=== PATIENT | female | born 1960 | race Caucasian/White ===

== ENCOUNTER 2020-07-05 16:56 | Outpatient (CLI) | payer OTHER, SELFPAY ==
--- NOTE | ~2020-07-05 | MM_ITS ---
EXAMINATION: MM screening [facility] BI w esteban HISTORY: Screening TECHNIQUE: Craniocaudal and mediolateral oblique 3-D tomosynthesis images were obtained and synthetic 2-D images were generated. CAD analysis was submitted and interpreted. COMPARISON: Comparison to multiple prior studies sequentially, with oldest reviewed study dated 01/31. BREAST PARENCHYMAL COMPOSITION: There are scattered areas of fibroglandular density. FINDINGS: There is no evidence of suspicious mass, calcification, or architectural distortion to sugg est malignancy in either breast. There has been no suspicious interval change. IMPRESSION: 1. No mammographic evidence of malignancy. 2. Recommend routine screening mammography in one year. BI-RADS Category 1: Negative Reviewed, dictated and finalized at location A. O [employer]
== END 2020-07-05 16:57 | disposition home or self-care (01) ==
LOC: ANHIMG 17:00
PROVIDERS: PCP Family Medicine; Visit Provider Physician Assistant
DX: Z12.31 Encounter for screening mammogram for malignant neoplasm of breast (principal)
CPT/HCPCS: 77063; 77067

== ENCOUNTER 2021-11-07 09:44 | Outpatient (CLI) | payer BC, SELFPAY ==
--- NOTE | ~2021-11-07 | MM_ITS ---
EXAMINATION: MM screening [facility] BI w esteban HISTORY: Screening TECHNIQUE: Craniocaudal and mediolateral oblique 3-D tomosynthesis images were obtained and synthetic 2-D images were generated. CAD analysis was submitted and interpreted. COMPARISON: Comparison to multiple prior studies sequentially, with oldest reviewed study dated 03/13. BREAST PARENCHYMAL COMPOSITION: There are scattered areas of fibroglandular density. FINDINGS: There is no evidence of suspicious mass, calcification, or architectural distortion to sugg est malignancy in either breast. There has been no suspicious interval change. IMPRESSION: 1. No mammographic evidence of malignancy. 2. Recommend routine screening mammography in one year. BI-RADS Category 1: Negative Reviewed, dictated and finalized at location A.
== END 2021-11-07 09:45 | disposition home or self-care (01) ==
PROVIDERS: PCP Family Medicine; Visit Provider Physician Assistant
DX: Z12.31 Encounter for screening mammogram for malignant neoplasm of breast (principal)
CPT/HCPCS: 77063; 77067

== ENCOUNTER 2022-02-12 08:23 | Inpatient (IN) | payer BC, SELFPAY ==
--- NOTE | ~2022-02-12 | CT_ITS ---
EXAMINATION: CT abdomen pelvis wo con DATE: 02/12/2022 10:20 INDICATION: Abdominal pain and vomiting TECHNIQUE: Computed tomography (CT) of the abdomen and pelvis was performed without intravenous contr ast. Automated exposure control and iterative reconstruction technique were employed. The dose-length product was 1354.83 mGy-cm. COMPARISON: None FINDINGS: Discoid atelectasis in the couple associated mucus impacted bronchi in the lateral basilar segment of the left lower lobe. Heart size is normal. No pericardial or pleural effusion. Small sliding-type hi atal hernia. Change of likely bariatric surgery with suture line along the proximal stomach extending both above and below the level of the thoracic hiatus. Cholecystectomy clips at the gallbladder santos a. And liver is normal. Splenic calcifications consistent with old granulomatous disease. Small linea r calcification at the body of the otherwise normal-appearing pancreas most likely atherosclerotic al though could not or dystrophic calcification related to chronic pancreatitis. Correlate with clinical history. Bilateral adrenal glands are normal. Mild bilateral renal atrophy with multiple low-attenua tion bilateral renal cysts measuring up to 2.5 similar to lower pole of the left kidney and 2 cm at t he lower pole of the right kidney. One-2 mm stone in upper pole calyx of the left kidney. No ureteral stones or hydronephrosis. Bladder is normal. The uterus is not identified and has likely been surgic ally resected. 3.1 cm left ovarian cyst. Right ovary is unremarkable. Moderate diverticulosis along the sigmoid and descending colon without adjacent inflammatory strandin g to suggest diverticular colitis. The appendix is not visualizedwith surgical clips at the tip of th e cecum consistent with prior appendectomy. Small fat-containing umbilical hernia with a few small haile praumbilical hernias along the midline of the abdomen, one containing fat, one containing a small goyo unt of fluid and fluid containing very small loop of obstructive small bowel with dilation of the mor e proximal small bowel measuring up to 4.4 cm maximal diameter and decompression of the more distal s mall bowel. No abnormal bowel wall thickening or associated mesenteric edema. No free fluid is identi fied for the previous noted small collection in one of the ventral hernias. No abscess or free intraperitoneal gas. No pathologically enlarged abdominal or pelvic lymphadenopath y. There is calcified atherosclerosis of the aorta and its branch arteries. No pathologically enlarge d abdominal or pelvic lymphadenopathy. Mild lumbar levocurvature with severe spondylosis. Grade 1 spo ndylolisthesis at L2-L3 through L4-L5. There are bridging osteophytes at multiple levels in the spine , consistent with diffuse idiopathic skeletal hyperostosis (DISH). IMPRESSION: 1. Small bowel obstruction resulting from herniation of a short segment of small bowel into one of a few small supraumbilical ventral hernias. 2. Small sliding-type hiatal hernia with change of prior likely bariatric surgery at the proximal sto mach. Reviewed, dictated and finalized at location A. IMPRESSION: 1. Small bowel obstruction resulting from herniation of a short segment of smal l bowel into one of a few small supraumbilical ventral hernias. 2. Small sliding-type hiatal hernia with change of prior likely bariatric surge ry at the proximal stomach.
--- NOTE | ~2022-02-12 | US_ITS ---
EXAMINATION: US renal BI DATE: 02/13/2022 09:31 INDICATION: Acute renal failure. TECHNIQUE: Multiple ultrasound grayscale images of the kidneys were obtained. COMPARISON: CT abdomen and pelvis 02/12/2022 FINDINGS: The right kidney measures 13.2 x 5.6 x 6.7 cm. The left kidney measures 12.8 x 5.2 cm. The kidneys de monstrate increased parenchymal echogenicity, consistent with nonspecific nephropathy. There are cyst s in the kidneys measuring up to 2.5 cm on the left. There is no hydronephrosis. The bladder is decom pressed by a Hammer catheter. There is a 3.5 cm cyst in left ovary. IMPRESSION: 1. Normal kidney sizes. No hydronephrosis. 2. 3.5 cm cyst in left ovary, likely benign. Pelvis ultrasound is recommended in one year. Reviewed, dictated and finalized at location A. IMPRESSION: 1. Normal kidney sizes. No hydronephrosis. 2. 3.5 cm cyst in left ovary, likely benign. Pelvis ultrasound is recommended i n one year.
--- NOTE | ~2022-02-12 | XR_ITS ---
XR abdomen NG/feed tube insert DATE: 02/12/2022 11:37 INDICATION: NG tube placement TECHNIQUE: Portable upright AP views on 02/12/2022 at 1132 hours COMPARISON: None FINDINGS: An NG tube is present in the lower body of the stomach. Postoperative changes of left and right abdomen. Some dilated small bowel is noted IMPRESSION: NG tube in satisfactory position in the lower body of the stomach Reviewed, dictated and finalized at Location A. Reviewed, dictated and finalized at location B.
[2022-02-12 08:27] VITALS: BP 124/75; PULSE 90; RESP 18; TEMP 36.1; O2SAT 97
[2022-02-12 08:42] LABS: Basophils Percent Auto 0.2 % (0.2-1.2); Eosinophils Percent Auto 0.2 % (0-4.4); Hematocrit 41.9 % (37.0-47.0); Hemoglobin 13.9 g/dL (12.0-15.0); Immature Granulocyte Absolute 0.03 K/mm3 (0.00-0.031); Immature Granulocyte Percent A 0.4 % (0-0.5); Lymphocytes Absolute Auto 0.93 K/mm3 (0.9-3.2); Lymphocytes Percent Auto 11.2 % (18.3-44.2); Mean Corpuscular HGB Conc 33.2 g/dl (32-36); Mean Corpuscular Hemoglobin 31.2 pg (26-34); Mean Corpuscular Volume 93.9 fl (80-100); Mean Platelet Volume 9.4 fl (7.4-10.4); Monocytes Absolute Auto 0.9 K/mm3 (0.1-0.6); Monocytes Percent Auto 10.4 % (2.6-8.5); Neutrophils Absolute Auto 6.4 K/mm3 (1.3-6.7); Neutrophils Percent Auto 77.6 % (45.5-73.1); Platelet Count Result 373 k/mm3 (150-375); Red Blood Count 4.46 M/mm3 (4.2-5.4); Red Cell Distribution Width 13.1 % (11.5-14.5); White Blood Count 8.3 K/mm3 (4.5-10.0)
[2022-02-12 08:55] LABS: Alanine Aminotransferase 20 U/L (6-35); Albumin Level 5.3 g/dL (3.5-5.1); Alkaline Phosphatase 95 U/L (38-126); Anion Gap 17 mmol/L (8-16); Aspartate Amino Transferase 33 U/L (14-36); Blood Urea Nitrogen 52 mg/dL (7-17); Calcium 10.3 mg/dL (8.4-10.2); Carbon Dioxide 27 mmol/L (22-30); Chloride 91 mmol/L (98-107); Estimated CRCL calculation 16 ml/min; Estimated Glomerular Filt Rate 10; Glucose 145 mg/dL (65-110); Lipase 138 U/L (23-300); Potassium 4.4 mmol/L (3.4-5.0); Sodium 135 mmol/L (137-145)
--- NOTE | 2022-02-12 09:29 | PC.NURSE ---
Pt unable to urinate at this time
--- NOTE | 2022-02-12 09:57 | ED.ABDPAIN ---
HPI - Abdominal Pain General Chief Complaint: Abdominal Pain Stated Complaint: n/v, constipation Time Seen by Provider: 02/12/22 09:46 Source: patient Mode of arrival: ambulatory Limitations: no limitations History of Present Illness HPI narrative: This is a 61-year-old female that presents to the emergency department for nausea and vomiting. Ongoing over the last couple of days. Associated with achy abdominal pain and constipation. Denies fevers or dysuria. Related Data Home Medications Medication Instructions Recorded Confirmed amoxicillin 500 mg capsule mg 02/12/22 diltiazem HCl 180 mg mg PO 02/12/22 capsule,extended release 24 hr levothyroxine 112 mcg tablet mcg 02/12/22 lisinopril 40 mg tablet mg 02/12/22 02/12/22 Allergies Allergy/AdvReac Type Severity Reaction Status Date / Time No Known Allergies Allergy Verified 02/12/22 09:32 Review of Systems Review of Systems: CONSTITUTIONAL: Denies fever GASTROINTESTINAL: Reports abdominal pain, nausea, vomiting. Denies diarrhea. GENITOURINARY: Denies dysuria All systems reviewed & are unremarkable except as noted in HPI and below PMFSH Past Medical History Medical History Chronic kidney disease History of hypertension History of hypothyroidism Morbid obesity with BMI of 45.0-49.9, adult Surgical History Surgical History History of bariatric surgery at age 16 had a bariatric surgery History of section History of cholecystectomy Open cholecystectomy 40 years ago History of foot surgery History of knee surgery Family History Family History Other Family history of arthritis Family history of mental disorder Hypertension Social History Social History Smoking status: Never smoker Alcohol intake: current Alcohol use details: Occasional alcohol use Substance use: never Living arrangements: with family Additional living arrangements comments: Lives with her Occupation/Education: retired Exam Narrative: GENERAL: Well-appearing, well-nourished, and in no acute distress. HEAD: Normocephalic, atraumatic. EYES: EOMI. CHEST: Clear to auscultation. No respiratory distress. No wheezes rales or rhonchi HEART: Regular rate and rhythm. No murmur heard. Normal peripheral pulses. ABDOMEN: Soft, nondistended, normal active bowel sounds. Mild tenderness to palpation throughout the abdomen, without guarding. No CVA tenderness EXTREMITIES: Normal range of motion. No edema. SKIN: Warm, dry, no rash. NEURO: No focal deficits. Alert and oriented x3. PSYCH: Normal mood and affect Course Consultations Consultation #1: Spoke with Dr. Garcia about patient and work-up who will consult. Date: 02/12/22 Consultation #2: Spoke with hospitalist who accepts admission Date: 02/12/22 Vital Signs Vital signs: Vital Signs Temperature 97.0 F L 02/12/22 08:27 Pulse Rate 90 02/12/22 08:27 Respiratory Rate 18 02/12/22 08:27 Blood Pressure 124/75 02/12/22 08:27 Pulse Oximetry 97 02/12/22 08:27 Oxygen Delivery Room Air 02/12/22 08:27 Temperature 97.0 F L 02/12/22 08:27 Pulse Rate 73 02/12/22 11:37 Respiratory Rate 18 02/12/22 11:37 Blood Pressure 122/78 02/12/22 11:37 Pulse Oximetry 93 02/12/22 11:37 Oxygen Delivery Room Air 02/12/22 08:27 MDM - Abdominal Pain MDM Narrative Medical decision making narrative: Patient presents to the emergency department for abdominal pain, nausea and vomiting. Ongoing over the last couple of days. She is afebrile and nontoxic-appearing. Her vitals are stable. CBC without leukocytosis. Lactic acid is not elevated. Metabolic panel with evidence of acute kidney injury. Her lipase is normal. CT scan of the abdomen and pelvis shows a s
[2022-02-12 10:19] LABS: Creatine Kinase 84 U/L (30-135)
[2022-02-12] MEDS: SODIUM CHLORIDE 0.9% IV 1,000 ML 999 ML IV CONT ×2 (10:19→11:36)
[2022-02-12] MEDS: ONDANSETRON INJ 4 MG/2 ML VIAL IV PUSH (10:19)
[2022-02-12 11:27] LABS: SARS-CoV-2 RNA PCR Negative
[2022-02-12] MEDS: BENZOCAINE/TETRACAINE SPRAY (*SP) 56 ML AEROSOL 1 SPRAY (11:36)
[2022-02-12 11:37] VITALS: BP 122/78; PULSE 73; RESP 18; O2SAT 93
--- NOTE | 2022-02-12 11:46 | PC.NURSE ---
Pt still unable to urinate at this time
--- NOTE | 2022-02-12 12:36 | PM.CNGS ---
Assessment and Plan Assessment and plan (1) Incarcerated incisional hernia: Code(s): K43.0 - Incisional hernia with obstruction, without gangrene Status: Acute Assessment and Plan: The patient presents with an incarcerated supraumbilical incisional hernia containing a segment of small bowel causing an obstruction. She has been having symptoms for 3 days and I was unable to reduce the hernia in the ER. She has no abdominal tenderness on exam. Her lactic acid is normal. If this is unable to be reduced, then we will need to proceed with urgent surgical repair. I discussed with the patient that there is a risk of strangulation and she could require a small bowel resection if there is evidence of bowel ischemia during surgery. We would recommend to continue treating the small bowel obstruction with NG tube decompression, IV fluids, NPO, and analgesics as needed. I discussed the case with Dr. Garcia who will see the patient separately. We will tentatively plan on scheduling her for surgery tomorrow depending on how she progresses with NG tube decompression. This will also allow time to treat her acute renal failure and work on medically optimizing her for surgery. (2) Small bowel obstruction: Code(s): K56.609 - Unspecified intestinal obstruction, unspecified as to partial versus complete obstruction Status: Acute Assessment and Plan: Secondary to incarcerated incisional hernia as mentioned above. Unable to reduce in the ER. Continue NG tube decompression, bowel rest, IV fluids, and analgesics as needed. (3) Acute on chronic renal failure: Code(s): N17.9 - Acute kidney failure, unspecified; N18.9 - Chronic kidney disease, unspecified Status: Acute Assessment and Plan: Creatinine 4.4 on admission. Patient reports a history of chronic renal failure due to heavy NSAID use. Her last outpatient labs were from May 2021 and she had the results on an ketty on her phone, which showed a creatinine of 1.5. This is likely acute on chronic renal failure related to her vomiting and poor oral intake over the past few days. Continue IV fluids, monitor labs. (4) Morbid obesity with BMI of 45.0-49.9, adult: Code(s): E66.01 - Morbid (severe) obesity due to excess calories; Z68.42 - Body mass index [BMI] 45.0-49.9, adult Status: Chronic (5) History of hypertension: Code(s): Z86.79 - Personal history of other diseases of the circulatory system Status: Chronic Plan I have discussed the patient's case and plan of care with Dr. Garcia. Thank you for allowing us to see the patient in consultation and we will continue to follow along with you. History of Present Illness Consult details Consult date: 02/12/22 Reason for consult: other (Small bowel obstruction secondary to an incarcerated incisional hernia) Requesting physician: Loretta Cooney PA-C Narrative: This is a 61-year-old obese female who presented to the ER for evaluation of abdominal pain, nausea, and vomiting for 3 days. She reports having intermittent mild generalized abdominal pain for the past few months. She had attributed this to constipation and was taking laxatives as needed. Three days ago, she developed lower abdominal pain and nausea. She thought she was constipated and began taking laxatives. She had taken Dulcolax, MiraLax, and stool softeners without relief. She reportedly vomited 5 times on Saturday, and then began feeling better yesterday when she woke up. She tried eating toast and began vomiting again after. She reports her abdominal pain got worse again yesterday and seemed more generalized across her entire abdomen. Due to her persistent symptoms, she came into the ER for evaluation this morning. CT scan of the abdomen and pelvis showed a small-bowel obstruction resulting from herniation of a short segment of small bowel into 1 of a few small supraumbilical ventral hernias. Also noted was a small sli
--- NOTE | 2022-02-12 12:46 | PM.IMHP ---
H&P: HPI History of Present Illness Date/Time: 02/12/22 12:46 Chief Complaint: abdominal pain with nausea vomiting and constipation Narrative: this is a 61-year-old female patient Who has a history of gastroplasty who came to the emergency room with nausea and vomiting for the last couple days. The patient has achy abdominal pain and constipation. she denied any diarrhea. She has not had any history of small-bowel obstruction in the past. Her sodium is 135. Creatinine is 4.4. BUN is 52. The patient stated that she had acute kidney injury in the past due to using too many NSAIDs. COVID was negative. The patient was started on IV fluids, Zofran, and IV Tylenol. Abdominal CT was read as the following 1. Small bowel obstruction resulting from herniation of a short segment of small bowel into one of a few small supraumbilical ventral hernias. 2. Small sliding-type hiatal hernia with change of prior likely bariatric surgery at the proximal stomach. surgery has been consulted. An NG-tube was placed in the right narus. The patient is being admitted for observation status on the date of service of 02/12/2022. Review of Systems Review of Systems: See HPI All systems reviewed & are unremarkable except as noted in HPI and below Constitutional: Constitutional: Reports as per HPI and Reports no additional constitutional complaints Eyes: Eyes: Reports as per HPI and Reports no additional eye complaints ENT: Reports system reviewed and no additional complaints, except as documented and Reports Normal hearing present Cardiovascular: Cardiovascular: Reports no additional cardiovascular complaints Respiratory: Respiratory: Reports no additional respiratory complaints and Reports no additional respiratory complaints Gastrointestinal: Gastrointestinal: Reports as per HPI and Reports no additional gastrointestinal complaints Musculoskeletal: Musculoskeletal: Reports no additional musculoskeletal complaints Integumentary/Breasts: Skin/Breast: Reports system reviewed and no additional complaints, except as docu and Reports as per HPI Neurologic: Reports system reviewed and no additional complaints, except as documented, Reports as per HPI and Reports Normal hearing present Psychiatric: Psychiatric: Reports no additional psychiatric complaints and Reports as per HPI Endocrine: Endocrine: Reports no additional endocrine complaints Hematologic/Lymphatic: Hematologic/Lymphatic: Reports no additional hematologic/lymphatic complaints Allergic/Immunologic: Allergic/Immunologic: Reports no additional allergic/immunologic complaints [facility] Past Medical History Medical History (Updated 02/12/22 @ 15:30 by Elizabeth Dickey NP) Chronic kidney disease History of hypertension History of hypothyroidism Morbid obesity with BMI of 45.0-49.9, adult Surgical History Surgical History (Updated 02/12/22 @ 15:14 by Elizabeth Dickey NP) History of bariatric surgery at age 16 had a bariatric surgery History of section x2 History of cholecystectomy Open cholecystectomy 40 years ago History of foot surgery History of knee surgery bilateral Family History Family History Other Family history of arthritis Family history of mental disorder Hypertension Social History Social History (Updated 02/12/22 @ 15:16 by Elizabeth Dickey NP) Social History: her is the power of civil litigation attorney. she is retired from [employer] code status full code Smoking status: Former smoker Alcohol intake: current Alcohol use details: Occasional alcohol use Substance use: never Living arrangements: with family Additional living arrangements comments: Lives with her Occupation/Education: retired Meds Home Medications and Allergies Home Medications Medication Instructions Recorded Confirmed Type amoxicillin 500 mg capsule mg 02/12/22 History dil
[2022-02-12 13:29] VITALS: BP 104/63; PULSE 74; RESP 18; O2SAT 98
[2022-02-12 14:34] VITALS: BP 109/75; PULSE 64; RESP 14; TEMP 36.4; O2SAT 97
[2022-02-12] MEDS: SODIUM CHLORIDE 0.9% IV 1,000 ML 125 ML IV CONT ×2 (15:58→21:47)
[2022-02-12 16:07] LABS: Appearance Urine Clear (Clear); Bilirubin Urine 1+ (Negative); Blood Urine Negative (Negative); Glucose Urine UA Negative (Negative); Ketones Urine Trace mg/dL (Negative); Leukocyte Esterase Ur Negative LEU/UL (Negative); Nitrate Urine Negative (Negative); Protein Urine 3+ mg/dL (Negative); Specific Grav Ur 1.025 (1.001-1.035); Urobilinogen Urine 0.2 mg/dL (<2.0); pH Urine 5.5 (5.0-9.0)
[2022-02-12 16:15] LABS: Alanine Aminotransferase 23 U/L (6-35); Albumin Level 4.6 g/dL (3.5-5.1); Alkaline Phosphatase 92 U/L (38-126); Aspartate Amino Transferase 33 U/L (14-36); CRP 2.3 mg/dL (<1.0); Creatine Kinase 105 U/L (30-135); Magnesium 1.9 mg/dL (1.6-2.3); Phosphorus 5.6 mg/dL (2.5-4.5)
[2022-02-12 16:17] LABS: Bacteria Urine Trace /hpf; Mucus Urine Rare /lpf; Squamous Epithelial Cell Urine Rare /hpf (Few)
[2022-02-12 16:19] LABS: Complement C3 152 mg/dL (88-165)
[2022-02-12 16:22] LABS: Erythrocyte Sedimentation Rate 53 mm/hr (0-20)
[2022-02-12 16:24] LABS: Add Urine Microscopic? YES; Color Urine Dark Yellow (Yellow)
[2022-02-12 16:52] LABS: HIV 1/2 Ab P24 Ag 1.31
[2022-02-12 17:00] VITALS: BMI 46.8
--- NOTE | 2022-02-12 17:03 | PC.NURSE ---
This patient, Meghana Barajas, was admitted to [facility] Surg Room 314-02. Patient/family oriented to hospital policies and general routines including ID bracelet, bed and alarms, visiting hours, pain management, procedures, bathroom and other care routines, personal items, smoking policy, room service/diet, and visiting hours. Information on how to activate the Rapid Response Team has been discussed. Patient/Family are encouraged to report perceived risks to care and to ask questions if they do not understand what they are told or what they should do.
[2022-02-12 17:23] LABS: Creatinine Urine 265.1 mg/dL; Total Protein Urine Random 149 mg/dL; Ur Ttl Prot Creatinine Ratio 0.56 mg/mg (0-0.20)
[2022-02-12 17:33] LABS: Potassium Urine Random 67.1 meq/L; Sodium Urine Random 14 meq/L
[2022-02-12 17:45] LABS: HIV 1/2 Ab P24 Ag Result Reactive (Negative)
--- NOTE | 2022-02-12 17:51 | PM.CNNEP ---
Assessment and Plan Additional Plan 1. Ana Cristina Tom has chronic kidney disease. Her creatinine was 1.2 in 2017 and 1.4 at 2 times in 2020. She has not had any blood work done this year yet however. The CT scan did show some atrophy of the kidneys bilaterally. Most likely the chronic kidney disease is from her hypertension and may have had some contribution by nonsteroidal anti-inflammatory agents as well. She does have a positive JONES but her DNA was negative as was her [employer] as checked by the internet marketing assistant last year. 2. The patient has acute kidney injury. This likely this is due to dehydration. She has not been eating or drinking anything and her nausea and vomiting has been pronounced. The CT scan did not show anything to suggest an anatomic cause for her renal failure such as hydronephrosis. If there is any infection going on in this could contribute as well. She is currently getting some IV fluids. She is also getting antibiotics. Will follow this along and see if she gets back down to her baseline. If not we can do more studies. 3. The patient has hypertension. Her blood pressure is under good control. 4. The patient has a small-bowel obstruction. She is going for surgery tomorrow. History of Present Illness Reason for Consult Consult date: 02/12/22 Chief Complaint Chief complaint: Small Bowel Obstruction/Acute Kidney Injury History of Present Illness Narrative: Ana Cristina Tom is a very pleasant lady who has multiple medical problems including chronic kidney disease with a baseline creatinine of around 1.4 for the last year or so, arthritis with positive JONES and evaluation by internet marketing assistant to said that it is not rheumatologic, hypertension, hypothyroidism, morbid obesity. The patient says that she has had nausea and vomiting for about 2 or 3 days. She has not been able to hold anything down. She has had progressively worsening Derrick abdominal pain. She has not had any bowel movements lately. She went to the emergency room for evaluation. She was found to have an obstruction in the small bowel, hiatal hernia. An NG-tube was placed and the patient was seen by surgery. She was admitted and she is getting IV fluids plus antibiotics. She is going for surgery tomorrow. Along the way a creatinine was checked and this showed a value of 4. She says that she has had kidney problems in the past. When she saw the internet marketing assistant about a year ago, that physician emeli a lot of labs and found that she had a mildly elevated creatinine of 1.4 and felt that it was probably due to the Advil she had been taking. She was taking between 800 and 1600 mg per day. After the patient found out about this she stopped taking the Advil. There has been any recent labs since last May. The patient denies any bloody urine, foamy urine, or kidney stones. She has no pain with urination. She has had a couple of bladder infections in the last few months. Review of Systems Constitutional: Constitutional: Reports no additional constitutional complaints Eyes: Eyes: Reports no additional eye complaints ENT: Reports system reviewed and no additional complaints, except as documented Cardiovascular: Cardiovascular: Reports no additional cardiovascular complaints Respiratory: Respiratory: Reports no additional respiratory complaints Gastrointestinal: Gastrointestinal: Reports no additional gastrointestinal complaints Genitourinary: Genitourinary: Reports no additional female genitourinary complaints Musculoskeletal: Musculoskeletal: Reports no additional musculoskeletal complaints Integumentary/Breasts: Skin/Breast: Reports system reviewed and no additional complaints, except as docu Neurologic: Reports system reviewed and no additional complaints, except as documented Psychiatric: Psychiatric: Reports no additional psychiatric complaints Endocrine: Endocrine: Reports no additional endocrine complaints PMFSH Past Medical
[2022-02-12 18:11] LABS: Hepatitis B Surface Antigen Negative (Negative)
[2022-02-12 18:17] LABS: Hepatitis B Core IgM Result Negative (Negative)
[2022-02-12 18:29] LABS: Hepatitis B Surface Anti Res Negative
[2022-02-12 18:30] LABS: Hepatitis C Virus Antibody Negative (Negative)
[2022-02-12 19:16] LABS: HIVc Retest 1 0.82
[2022-02-12 19:58] LABS: Creatine Kinase 97 U/L (30-135)
[2022-02-12 20:55] LABS: HIV 1/2 Ab P24 Ag 1.19
--- NOTE | 2022-02-12 21:02 | PC.NURSE ---
Received 2nd HIV test results from lab. Test returned REACTIVE. I called these results to Elizabeth Dickey, and did not receive any additional orders.
[2022-02-12 21:37] LABS: HIV 1/2 Ab P24 Ag Result Reactive (Negative)
[2022-02-12 22:00] VITALS: BP 105/60; PULSE 86; RESP 20; TEMP 36.6; O2SAT 98
[2022-02-13] VITALS (17 sets, daily range): BP systolic 103–138; BP diastolic 54–74; PULSE 44–77; RESP 16–20; TEMP 35.7–37.7; O2SAT 92–100
[2022-02-13] MEDS: LEVOTHYROXINE SODIUM INJ 100 MCG/5 ML VIAL 60 MCG IV PUSH (05:38)
[2022-02-13 06:44] LABS: Hematocrit 36.1 % (37.0-47.0); Hemoglobin 11.6 g/dL (12.0-15.0); Mean Corpuscular HGB Conc 32.1 g/dl (32-36); Mean Corpuscular Hemoglobin 30.8 pg (26-34); Mean Corpuscular Volume 95.8 fl (80-100); Mean Platelet Volume 9.5 fl (7.4-10.4); Platelet Count Result 236 k/mm3 (150-375); Red Blood Count 3.77 M/mm3 (4.2-5.4); Red Cell Distribution Width 13.1 % (11.5-14.5); White Blood Count 5.9 K/mm3 (4.5-10.0)
[2022-02-13 06:52] LABS: Alanine Aminotransferase 33 U/L (6-35); Albumin Level 4.1 g/dL (3.5-5.1); Alkaline Phosphatase 84 U/L (38-126); Anion Gap 14 mmol/L (8-16); Aspartate Amino Transferase 42 U/L (14-36); Bilirubin,Total 0.8 mg/dL (0.2-1.3); Blood Urea Nitrogen 54 mg/dL (7-17); Carbon Dioxide 24 mmol/L (22-30); Chloride 101 mmol/L (98-107); Estimated CRCL calculation 18 ml/min; Estimated Glomerular Filt Rate 12; Glucose 97 mg/dL (65-110); Phosphorus 4.5 mg/dL (2.5-4.5); Potassium 3.6 mmol/L (3.4-5.0); Sodium 139 mmol/L (137-145)
[2022-02-13 07:04] LABS: Lactic Acid Reflex 0.7 mmol/L (0.7-2.0)
[2022-02-13] MEDS: SODIUM CHLORIDE 0.9% IV 1,000 ML 125 ML IV CONT ×2 (08:10→22:33)
--- NOTE | 2022-02-13 11:00 | PC.NURSE ---
Report called to Hyacinth RN Preop.
--- NOTE | 2022-02-13 12:16 | PM.PNNEP ---
Progress Note: A&P Additional Plan 1. Ana Cristina Tom has chronic kidney disease. Her last creatinine was 1.[address] scan did show some atrophy of the kidneys bilaterally. Most likely the chronic kidney disease is from her hypertension and may have had some contribution by nonsteroidal anti-inflammatory agents as well. She does have a positive JONES but her DNA was negative as was her [employer] as checked by the moose hunter last year. The moose hunter did not feel that there was any significant issue occurring. 2. The patient has acute kidney injury. This likely this is due to dehydration. She has not been eating or drinking anything and her nausea and vomiting has been pronounced. Urine sodium 14. Renal ultrasound unremarkable Most likely pre renal azotemia. She is getting IV fluids. Her creatinine improved a bit. 3. The patient has hypertension. Her blood pressure is under good control. 4. The patient has a small-bowel obstruction. She is going for surgery tomorrow. Subjective Date/time seen: 02/13/22 12:16 Interval history: Patient is alert. She is waiting for surgery. NG tube is still in. in the room. Review of Systems Cardiovascular: Cardiovascular: Reports no additional cardiovascular complaints Respiratory: Respiratory: Reports no additional respiratory complaints Gastrointestinal: Gastrointestinal: Reports no additional gastrointestinal complaints Genitourinary: Genitourinary: Reports no additional female genitourinary complaints Exam Narrative: WDWN in NAD skin no rash head ncat lungs clear cor reg no rub abd BS+ hypoactive, minimally tender and soft ext no edema. Objective Data Vital Signs Vital Signs: Vital Signs - 24 hr 02/12/22 13:29 02/12/22 14:34 02/12/22 15:30 Temperature 36.4 C L Pulse Rate 74 64 Respiratory Rate 18 14 Blood Pressure 104/63 109/75 Pulse Oximetry 98 97 Oxygen Delivery Room Air 02/12/22 22:00 02/13/22 06:00 02/13/22 09:17 Temperature 36.6 C 36.5 C Pulse Rate 86 77 Respiratory Rate 20 20 20 Blood Pressure 105/60 129/60 Pulse Oximetry 98 93 94 Oxygen Delivery Room Air Intake/Output Intake/Output: Intake & Output 02/10/22 02/11/22 02/12/22 02/13/22 23:59 23:59 23:59 23:59 Intake Total 2100 1000 Output Total 550 450 Balance 1550 550 Meds/Results Medications: Active Medications Generic Name Dose Route Start Last Admin Trade Name Freq PRN Reason Stop Dose Admin Hydralazine HCl 10 mg 02/12/22 15:24 Hydralazine Hcl 20 Mg/Ml Vial IV PUSH Q8H PRN Blood Pressure - High Hydralazine HCl 10 mg 02/12/22 19:35 Hydralazine Hcl 20 Mg/Ml Vial IV PUSH Q8H PRN Blood Pressure - High Sodium Chloride 1,000 mls @ 125 mls/hr 02/12/22 12:10 02/13/22 09:17 Normal Saline Iv IV CONT 125 mls/hr .Q8H JARRETT Infusion Cefazolin Sodium 100 mls @ 200 mls/hr 02/13/22 13:00 Ancef 3 Gm/D5w 100 Ml IVPB 02/13/22 13:29 ONCE ONE Levothyroxine Sodium 60 mcg 02/13/22 06:30 02/13/22 05:38 Levothyroxine Sodium Inj 100 Mcg/5 Ml Vial IV PUSH 60 mcg DAILY@0630 JARRETT Administration Ondansetron HCl 4 mg 02/12/22 15:12 Ondansetron Inj 4 Mg/2 Ml Vial IV PUSH Q4H PRN Nausea And Vomiting Phenol 1 spray 02/12/22 16:00 Phenol/Sod Pheno [place] (*Bkc) MUCOUS MEM PRN PRN Sore Throat Radiology Results: ITS Impressions Abdomen/Pelvis CT 02/12/22 10:21 IMPRESSION: 1. Small bowel obstruction resulting from herniation of a short segment of small bowel into one of a few small supraumbilical ventral hernias. 2. Small sliding-type hiatal hernia with change of prior likely bariatric surgery at the proximal stomach. Abdomen X-Ray 02/12/22 11:41 IMPRESSION: NG tube in satisfactory position in the lower body of the stomach Renal Ultrasound 02/13/22 09:32 IMPRESSION: 1. Normal kidney sizes. No hydronephrosis. 2. 3.5 cm
--- NOTE | 2022-02-13 13:23 | WPDANESEPPF ---
Anes - Initial Pre Proc Eval Procedure: Operation Date: 02/13/22 15:00 Proposed Procedures p Incarcerated Incisional Hernia Repair; Possible Bowel Resection - Thad Garcia DO Date/Time: 02/13/22 13:23 Surgeon: Marc Jacome MD Pre Op Diagnosis: Small Bowel Obstruction/Acute Kidney Injury Patient Data Age: 61 Gender: F Height: 1.6 m Weight: 120 kg Last Vital Signs Temp 36.5 C 02/13/22 06:00 Pulse 77 02/13/22 06:00 Resp 20 02/13/22 09:17 BP 129/60 02/13/22 06:00 Pulse Ox 94 02/13/22 09:17 O2 Del Method Room Air 02/13/22 09:17 Allergies Allergy/AdvReac Type Severity Reaction Status Date / Time No Known Allergies Allergy Verified 02/12/22 09:32 Home Medications Medication Instructions Recorded Confirmed Type amoxicillin 500 mg capsule 500 mg PO BID 02/12/22 02/12/22 History diltiazem HCl 180 mg 180 mg PO DAILY 02/12/22 02/12/22 History capsule,extended release 24 hr levothyroxine 112 mcg tablet 112 mcg PO DAILY 02/12/22 02/12/22 History lisinopril 40 mg tablet 40 mg PO DAILY 02/12/22 02/12/22 History Laboratory Tests 02/12/22 02/12/22 02/12/22 15:46 15:46 15:46 WBC RBC Hgb Hct MCV MCH MCHC RDW Plt Count MPV ESR Sodium Potassium Chloride Carbon Dioxide Anion Gap BUN Creatinine Estim Creat Clear Calc Estimated GFR Glucose Serum Osmolality Lactic Acid Calcium Phosphorus Magnesium Total Bilirubin Direct Bilirubin AST ALT Alkaline Phosphatase Total Creatine Kinase C-Reactive Protein Total Protein Albumin Jkxfw-[id number] Ovqjx-7-Agqkcrpdz Mxeh-3-Wzmfdgwb Blsy-9-Whpiyrhc Gamma Globulins Abnorm Protein Band 1 Abnorm Protein Band 3 PEP Interpretation TSH (Reflex) Urine Color Dark yellow Cancelled (Yellow) Urine Appearance Clear Cancelled (Clear) Urine pH 5.5 Cancelled (5.0-9.0) Ur Specific [place] 1.025 Cancelled (1.001-1.035) Urine Protein 3+ mg/dL H mg/dL Cancelled (Negative) Urine Glucose (UA) Negative mg/dL mg/dL Cancelled (Negative) Urine Ketones Trace mg/dL mg/dL Cancelled (Negative) Ur Blood (Man) Negative Cancelled (Negative) Urine Nitrate Negative Cancelled (Negative) Urine Bilirubin 1+ H Cancelled (Negative) Urine Urobilinogen 0.2 mg/dL mg/dL Cancelled (<2.0) Ur Leukocyte Esterase Cancelled Leukocyte Esterase Rfl Negative AURELIO/UL AURELIO/UL (Negative) Urine RBC 3-5 /hpf H /hpf Cancelled (0-2) Urine WBC 4-6 /hpf H /hpf Cancelled Urine WBC Clumps Cancelled Ur Squamous Epith Cells Rare /hpf /hpf Cancelled (Few) Ur Transition Epith Cell Cancelled Ur Renal Epithelial Cell Cancelled [place] Biurate Crystals Cancelled Calcium Carbonate Cryst Cancelled Calcium Phosphate Cryst Cancelled Calcium Oxalate Crystal Cancelled Leucine Crystals Cancelled Cystine Crystals Cancelled Uric Acid Crystals Cancelled Triple Phos Crystals Cancelled Sulfonamide Crystals Cancelled Cholesterol Crystals Cancelled Tyrosine Crystals Cancelled Hippuric Acid Crystals Cancelled Amorphous Sediment Cancelled Other Sediment Cancelled Urine Bacteria Trace /hpf /hpf
--- NOTE | 2022-02-13 13:30 | PC.NURSE ---
To OR via bed. at bedside. Hammer draining clear yellow urine.
--- NOTE | 2022-02-13 13:45 | PM.IMPN ---
Progress Note: A&P Assessment and Plan (1) Incarcerated incisional hernia: Code(s): K43.0 - Incisional hernia with obstruction, without gangrene Status: Acute Assessment and Plan: CT did show a small bowel obstruction resulting from herniation surgery has been consulted thank for your help surgical intervention planned for today. NG tube present with a green bile suction IV fluids on board for hydration NPO status general surgery to manage postop care (2) Small bowel obstruction: Code(s): K56.609 - Unspecified intestinal obstruction, unspecified as to partial versus complete obstruction Status: Acute Assessment and Plan: - NG tube placed - surgical consult - secondary to incarcerated incisional hernia unable to be reduced per surgery team in ER. - NPO/ bowel rest - IV fluids - see above (3) Acute kidney injury: Code(s): N17.9 - Acute kidney failure, unspecified Status: Acute Assessment and Plan: - Current BUN/Cr 54/3.70 - IV fluid - past history of renal failure due to NSAID use her which improved after NSAIDs were discontinued. - Most likely related to dehydration and nausea and vomiting - renal ultrasound - nephrology consult - avoid nephrotoxic substances (4) Morbid obesity with BMI of 45.0-49.9, adult: Code(s): E66.01 - Morbid (severe) obesity due to excess calories; Z68.42 - Body mass index [BMI] 45.0-49.9, adult Status: Chronic Assessment and Plan: BMI is 46.9 Life style changes post surgical procedure Director Of Plant Operations consult closer to [place] (5) History of hypertension: Code(s): Z86.79 - Personal history of other diseases of the circulatory system Status: Chronic Assessment and Plan: BP is 138/67 patient is NPO at this time. hydralazine With parameters (6) History of hypothyroidism: Code(s): Z86.39 - Personal history of other endocrine, nutritional and metabolic disease Status: Acute Assessment and Plan: - may consider giving half the P.o. dose in the IV form. -Check thyroid levels. Time Spent With Patient Time with patient: Greater than 35 minutes Subjective Date/time seen: 02/13/22 13:45 Interval history: 02/13/22 1345 Patient was getting ready surgery. Patient stated she is doing okay however she is tired and a little nervous. She did say that she did passing gas once this morning however nothing since and no bowel movements. She has no nausea no vomiting, no chest pain or shortness of breath. She does have an NG tube present with green thick bile a suction. She seems to be comfortable at this time. 02/12/22? 12:46 ?this is a 61-year-old female patient ? Who has a history of? gastroplasty who came to the emergency room with nausea and vomiting for the last couple days.? The patient has achy abdominal pain and constipation. she denied any diarrhea.? She has not had any history of small-bowel obstruction in the past.? Her sodium is 135.? Creatinine is 4.4.? BUN is 52.? The patient stated that she had acute kidney injury in the past due to using too many NSAIDs.? COVID was negative.? The patient was started on IV fluids, Zofran, and IV Tylenol.? Abdominal CT was read as the following 1. Small bowel obstruction resulting from herniation of a short segment of small bowel into one of a few small supraumbilical ventral hernias. 2. Small sliding-type hiatal hernia with change of prior likely bariatric surgery at the proximal stomach. ?surgery has been consulted.? An NG-tube was placed in the right narus. ? The patient is being admitted for observation status on the date of service of 02/12/2022. Review of Systems Review of Systems: All systems reviewed & are unremarkable except as noted in HPI and below Exam Const: General: cooperative, comfortable, no acute distress, well developed, alert, awake, Physically active
[2022-02-13] MEDS: LACTATED RINGERS 1,000 ML 30 ML IV CONT ×3 (14:00→16:32)
--- NOTE | 2022-02-13 14:10 | WPDHPUPDATE1 ---
History and Physical Update Update Date/Time: 02/13/22 14:10 History and Physical has been reviewed, including an updated exam of the patient. There are NO changes in the patient's condition. Risks, benefits, and alternatives have been discussed and questions answered. Patient agrees to proceed with procedure.
[2022-02-13] MEDS: ceFAZolin 3 GM/D5W 100 ML 100 ML IVPB (14:41)
--- NOTE | 2022-02-13 16:10 | W.PM.PROC2 ---
Procedure Note - Detailed Date of Procedure 02/13/22 Pre-op Diagnosis Incarcerated incisional hernia, small-bowel obstruction Post-op Diagnosis Same Procedure Performed Incarcerated incisional hernia repair Surgeon Thad Garcia, DO Anesthesia General Indications This is a 61-year-old woman who presented to the emergency department with nausea and vomiting and generalized abdominal pain for the past several days. A CT of her abdomen and pelvis showed evidence of a supraumbilical hernia incarcerated with small bowel causing a small bowel obstruction. She was hemodynamically stable and did not have any significant tenderness at the hernia site. The hernia was unable to be reduced. The patient came in with acute dehydration and acute renal failure. She was admitted and fluid resuscitated and then the following day decision was made to proceed with incarcerated incisional hernia repair with possible bowel resection. Findings Incarcerated incisional hernia repair was performed. Patient was found to have 2 incarcerated hernias just superior to the umbilicus. One hernia only contained fluid and the other hernia contained a loop of small bowel. The hernia sac was entered and the fascia was opened up enough to allow the hernia to be reduced. The bowel within the hernia defect was carefully inspected and appeared healthy and viable. The 2 hernia defects combined measured about 2 cm x 3 cm. Decision was made to close this primarily using 1. PDS running suture. The hernia sacs were excised and sent to the lab for pathology. Description of Procedure Procedure as well as risks, benefits, and alternatives were discussed with the patient. Written consent was obtained and placed in chart prior to procedure. Patient was brought back to surgical suite. She was placed supine on operating table. Time-out was done to confirm patient and procedure. She was then intubated by the anesthesia department. Her abdomen was prepped and draped in sterile fashion using chlorhexidine prep. A 10 cm vertical midline incision was made just superior to the umbilicus using a 10 blade scalpel. Electrocautery was used for hemostasis and for dissection down through the subcutaneous tissue. The hernia sacs were identified and the subcutaneous fat was cleared around the hernia sacs all the way down to the level of the fascia circumferentially. The fascia was then entered through the linea alba just superior to the hernia defects using electrocautery. The peritoneum was then bluntly entered using a curved hemostat. I then swept my finger underneath the fascia and carefully dissected the adhesions free from around the hernia defects. The initial hernia defect identified was the inferior-most hernia and this appeared to be containing some fluid. The hernia sac was carefully excised using electrocautery and the fascia incision was extended through the hernia defect with electrocautery. Just lateral and cephalad to this was another hernia incarcerated with a loop of small bowel. I was able to advance my finger into the hernia sac from below and then carefully cauterize over my finger to prevent any bowel injuries. The fascia incision was extended into this hernia defect and this freed up the bowel so that it could be reduced. Bowel was carefully inspected and it appeared slightly erythematous and edematous but it did not appear to have any evidence of necrosis or bowel infarction. The bowel was released back down into the abdominal cavity. The hernia sac was then excised completely at the level of the fascia using electrocautery. The hernia sacs were then sent to the lab for pathology. The remainder of the adhesions were taken down around the fascia to adequately inspect the fascia for any other hernia defects. No other significant abnormalities were noted. I then carefully inspected the small bowel from the ligament of Treitz to the ileocecal valve. No other signs of obstruction were id
[2022-02-13] MEDS: fentaNYL CITRATE INJ (*CRX) 100 MCG/2 ML VIAL 25 MCG IV PUSH (16:52)
[2022-02-13] MEDS: ceFAZolin 2 GM/D5W 50 ML 2 GM/50 ML BAG IVPB (20:12)
[2022-02-14] VITALS (7 sets, daily range): BP systolic 118–155; BP diastolic 54–69; PULSE 43–63; RESP 14–20; TEMP 36.2–36.6; O2SAT 92–99
[2022-02-14] MEDS: ceFAZolin 2 GM/D5W 50 ML 2 GM/50 ML BAG IVPB ×2 (04:03→12:46)
[2022-02-14] MEDS: LEVOTHYROXINE SODIUM INJ 100 MCG/5 ML VIAL 60 MCG IV PUSH (05:40)
[2022-02-14] MEDS: HYDROmorphone HCL INJ (*CRX) 1 MG/ML SYR IV PUSH (06:49)
[2022-02-14 06:55] LABS: Basophils Percent Auto 0.3 % (0.2-1.2); Hematocrit 33.8 % (37.0-47.0); Hemoglobin 10.7 g/dL (12.0-15.0); Immature Granulocyte Absolute 0.02 K/mm3 (0.00-0.031); Immature Granulocyte Percent A 0.3 % (0-0.5); Lymphocytes Absolute Auto 0.63 K/mm3 (0.9-3.2); Lymphocytes Percent Auto 9.3 % (18.3-44.2); Mean Corpuscular HGB Conc 31.7 g/dl (32-36); Mean Corpuscular Hemoglobin 30.6 pg (26-34); Mean Corpuscular Volume 96.6 fl (80-100); Mean Platelet Volume 9.9 fl (7.4-10.4); Monocytes Absolute Auto 0.8 K/mm3 (0.1-0.6); Monocytes Percent Auto 12.1 % (2.6-8.5); Neutrophils Absolute Auto 5.3 K/mm3 (1.3-6.7); Platelet Count Result 234 k/mm3 (150-375); Red Cell Distribution Width 13.2 % (11.5-14.5); White Blood Count 6.8 K/mm3 (4.5-10.0)
[2022-02-14 07:11] LABS: Alanine Aminotransferase 45 U/L (6-35); Albumin Level 3.5 g/dL (3.5-5.1); Alkaline Phosphatase 82 U/L (38-126); Anion Gap 13 mmol/L (8-16); Aspartate Amino Transferase 65 U/L (14-36); Bilirubin,Total 0.4 mg/dL (0.2-1.3); Blood Urea Nitrogen 48 mg/dL (7-17); Calcium 8.7 mg/dL (8.4-10.2); Carbon Dioxide 23 mmol/L (22-30); Chloride 105 mmol/L (98-107); Estimated CRCL calculation 27 ml/min; Estimated Glomerular Filt Rate 20; Glucose 105 mg/dL (65-110); Magnesium 1.9 mg/dL (1.6-2.3); Potassium 3.8 mmol/L (3.4-5.0); Sodium 141 mmol/L (137-145)
[2022-02-14] MEDS: SODIUM CHLORIDE 0.9% IV 1,000 ML 125 ML IV CONT ×2 (07:32→17:24)
[2022-02-14] MEDS: ENOXAPARIN 30 MG/0.3 ML SYRINGE SUB-Q (08:42)
--- NOTE | 2022-02-14 09:09 | PM.PNGS ---
Progress Note: A&P Assessment and Plan (1) Small bowel obstruction: Code(s): K56.609 - Unspecified intestinal obstruction, unspecified as to partial versus complete obstruction Status: Acute Assessment and Plan: Remove NG and start clear liquids Await return of bowel function Increase activity (2) Incarcerated incisional hernia: Code(s): K43.0 - Incisional hernia with obstruction, without gangrene Status: Acute Subjective Subjective Date/Time Seen: 02/14/22 09:09 Interval history: Pain controlled. No BM or Flatus yet. Exam GI: Inspection: incision (dressing dry) GI Palp: Yes Soft to palpation, Yes Tenderness to palpation present (GI) (incisional) and No Guarding due to palpation present (GI) Objective Data Vital Signs Vital Signs: Vital Signs - 24 hr 02/13/22 09:17 02/13/22 13:53 02/13/22 16:23 Temperature 37.7 C H 36.4 C Pulse Rate 70 66 Respiratory Rate 20 18 16 Blood Pressure 138/67 109/65 Pulse Oximetry 94 95 97 Oxygen Delivery Room Air Room Air Simple Face Mask Oxygen Flow Rate 6 02/13/22 16:38 02/13/22 16:53 02/13/22 17:08 Temperature Pulse Rate 45 L 50 L 56 L Respiratory Rate 18 16 18 Blood Pressure 111/60 116/64 122/57 L Pulse Oximetry 100 96 96 Oxygen Delivery Simple Face Mask Nasal Cannula Nasal Cannula Oxygen Flow Rate 6 2 2 02/13/22 17:23 02/13/22 17:34 02/13/22 18:01 Temperature Pulse Rate 51 L 55 L Respiratory Rate 18 18 Blood Pressure 115/70 125/61 Pulse Oximetry 92 92 93 Oxygen Delivery Nasal Cannula Nasal Cannula Nasal Cannula Oxygen Flow Rate 2 1 1 02/13/22 17:45 02/13/22 17:45 02/13/22 18:00 Temperature 35.8 C L 36.1 C L Pulse Rate 52 L 52 L 56 L Respiratory Rate 18 18 18 Blood Pressure 124/74 120/62 Pulse Oximetry 93 93 95 Oxygen Delivery Nasal Cannula Oxygen Flow Rate 2 02/13/22 18:30 02/13/22 20:00 02/13/22 19:20 Temperature 36.1 C L 35.7 C L Pulse Rate 56 L 45 L Respiratory Rate 18 20 Blood Pressure 118/58 L 103/62 Pulse Oximetry 95 95 100 Oxygen Delivery Nasal Cannula Oxygen Flow Rate 2 02/13/22 22:33 02/13/22 23:20 02/14/22 04:00 Temperature 36.6 C 36.6 C Pulse Rate 44 L 63 Respiratory Rate 16 14 Blood Pressure 115/54 L 119/69 Pulse Oximetry 93 93 93 Oxygen Delivery Room Air Oxygen Flow Rate 02/14/22 07:20 02/14/22 08:02 02/14/22 08:44 Temperature 36.4 C L Pulse Rate 47 L Respiratory Rate 18 18 Blood Pressure 118/63 Pulse Oximetry 92 92 92 Oxygen Delivery Room Air Room Air Oxygen Flow Rate Intake/Output Intake/Output: Intake & Output 02/11/22 02/12/22 02/13/22 02/14/22 23:59 23:59 23:59 23:59 Intake Total 2100 2600 1330 Output Total 550 1900 1450 Balance 1550 700 -120 Meds/Results Medications: Active Medications Generic Name Dose Route Start Last Admin Trade Name Freq PRN Reason Stop Dose Admin Enoxaparin Sodium 30 mg 02/14/22 09:00 02/14/22 08:42 Enoxaparin 30 Mg/0.3 Ml Syringe SUB-Q 30 mg DAILY JARRETT Administration Hydralazine HCl 10 mg 02/12/22 15:24 Hydralazine Hcl 20 Mg/Ml Vial IV PUSH Q8H PRN Blood Pressure - High Hydralazine HCl 10 mg 02/12/22 19:35 Hydralazine Hcl 20 Mg/Ml Vial IV PUSH Q8H PRN Blood Pressure - High Hydromorphone HCl 0.5 mg 02/13/22 17:35 Hydromorphone Hcl Inj (*Crx) 1 Mg/Ml Syr IV PUSH Q2H PRN Pain Rated 4-6 Hydromorphone HCl 1 mg 02/13/22 17:35 02/14/22 06:49 Hydromorphone Hcl Inj (*Crx) 1 Mg/Ml Syr IV PUSH 1 mg Q2H PRN Administration Pain Rated 7-10 Sodium Chloride 1,000 mls @ 125 mls/hr 02/12/22 12:10 02/14/22 07:32 Normal Saline Iv IV CONT 125 mls/hr .Q8H JARRETT Administration Acetaminophen 1,000 mg in 100 mls @ 400 mls/hr 02/13/22 18:00 08/03/22 05:54 Ofirmev 1,000 Mg Ivpb IVPB 02/14/22 12:14 Infused Q6HR JARRETT Infusion Cefazolin Sodium 2 gm in 50 mls @ 100 mls/hr 02/13/22 21:00 02/14/22 04:33
--- NOTE | 2022-02-14 12:57 | WPDANESPN ---
Anes - Prog Note Post-Op Date/Time: 02/14/22 12:57 Cardiovascular status: normal Respiratory status: normal Airway patency: baseline Mental status: baseline Post-Op hydration status: normal Vital Signs: Last Vital Signs Temp 97.1 F L 02/14/22 11:20 Pulse 43 L 02/14/22 11:20 Resp 20 02/14/22 11:20 BP 133/65 02/14/22 11:20 Pulse Ox 96 02/14/22 11:20 O2 Del Method Room Air 02/14/22 08:44 O2 Flow Rate 2 02/13/22 20:00 Pain Score (VAS): 07/24 I/O: Intake & Output 02/13/22 02/14/22 02/14/22 23:59 07:59 15:59 Intake Total 1500 1330 577 Output Total 250 1450 Balance 1250 -120 577 Laboratory Tests 02/14/22 06:16 02/14/22 06:16 02/14/22 02/14/22 06:16 06:16 WBC 6.8 RBC 3.50 L Hgb 10.7 L Hct 33.8 L MCV 96.6 MCH 30.6 MCHC 31.7 L RDW 13.2 Plt Count 234 MPV 9.9 Immature Gran % (Auto) 0.3 Neut % (Auto) 78.0 H Lymph % (Auto) 9.3 L [place] % (Auto) 12.1 H Eos % (Auto) 0.0 Baso % (Auto) 0.3 Lymph # (Auto) 0.63 L [place] # (Auto) 0.8 H Eos # (Auto) 0.0 Baso # (Auto) 0.0 Abs Immat Gran (auto) 0.02 Absolute Neuts (auto) 5.3 Absolute Nucleated RBC 0.0 Nucleated RBC % 0.0 Sodium 141 Potassium 3.8 Chloride 105 Carbon Dioxide 23 Anion Gap 13 BUN 48 H Creatinine 2.50 H Estim Creat Clear Calc 27 Estimated GFR 20 L Glucose 105 Calcium 8.7 Magnesium 1.9 Total Bilirubin 0.4 AST 65 H ALT 45 H Alkaline Phosphatase 82 Total Protein 7.0 Albumin 3.5 Post-procedural complaints: none Patient Feedback: Patient satisfied with anesthetic care.
--- NOTE | 2022-02-14 13:30 | PM.IMPN ---
Progress Note: A&P Assessment and Plan (1) Incarcerated incisional hernia: Code(s): K43.0 - Incisional hernia with obstruction, without gangrene Status: Acute Assessment and Plan: POD 1 CT did show a small bowel obstruction resulting from herniation surgery has been consulted thank for your help surgical intervention from 02/13/22 NG tube removed IV fluids on board for hydration Clear liquid diet general surgery to manage postop care Pain medications Anti emetics (2) Small bowel obstruction: Code(s): K56.609 - Unspecified intestinal obstruction, unspecified as to partial versus complete obstruction Status: Acute Assessment and Plan: - NG tube remove - surgical consult - secondary to incarcerated incisional hernia unable to be reduced per surgery team in ER. - NPO/ bowel rest - IV fluids - see above (3) Acute kidney injury: Code(s): N17.9 - Acute kidney failure, unspecified Status: Acute Assessment and Plan: - Current BUN/Cr 48/2.50 - IV fluid - past history of renal failure due to NSAID use her which improved after NSAIDs were discontinued. - Most likely related to dehydration and nausea and vomiting - renal ultrasound normal kidney sizes - nephrology consult - avoid nephrotoxic substances (4) Morbid obesity with BMI of 45.0-49.9, adult: Code(s): E66.01 - Morbid (severe) obesity due to excess calories; Z68.42 - Body mass index [BMI] 45.0-49.9, adult Status: Chronic Assessment and Plan: BMI is 46.9 Life style changes post surgical procedure Civil Litigation Attorney consult closer to [place] (5) History of hypertension: Code(s): Z86.79 - Personal history of other diseases of the circulatory system Status: Chronic Assessment and Plan: BP is 133/65 probably restart home medications tomorrow hydralazine With parameters (6) History of hypothyroidism: Code(s): Z86.39 - Personal history of other endocrine, nutritional and metabolic disease Status: Acute Assessment and Plan: -may consider giving half the P.o. dose in the IV form. -TSH 2.290 Time Spent With Patient Time with patient: Greater than 35 minutes Subjective Date/time seen: 02/14/22 1330 Interval history: 02/14/221329 patient seems to be doing well today. She states that she does not have any pain however she has been getting pain medicine when appropriate. She denies any nausea or vomiting diarrhea constipation however she stated that she has no she has not went to the bathroom but she has not eaten anything either. She has not had any chest pain or shortness of breath. She is currently on clear liquids sitting in the chair and looks fairly good. 02/13/22 1345 Patient was getting ready surgery. Patient stated she is doing okay however she is tired and a little nervous. She did say that she did passing gas once this morning however nothing since and no bowel movements. She has no nausea no vomiting, no chest pain or shortness of breath. She does have an NG tube present with green thick bile a suction. She seems to be comfortable at this time. 02/12/22? 12:46 ?this is a 61-year-old female patient ? Who has a history of? gastroplasty who came to the emergency room with nausea and vomiting for the last couple days.? The patient has achy abdominal pain and constipation. she denied any diarrhea.? She has not had any history of small-bowel obstruction in the past.? Her sodium is 135.? Creatinine is 4.4.? BUN is 52.? The patient stated that she had acute kidney injury in the past due to using too many NSAIDs.? COVID was negative.? The patient was started on IV fluids, Zofran, and IV Tylenol.? Abdominal CT was read as the following 1. Small bowel obstruction resulting from herniation of a short segment of small bowel into one of a few small supraumbilical ventral hernias. 2
--- NOTE | 2022-02-14 15:52 | PM.PNNEP ---
Progress Note: A&P Additional Plan 1. Ana Cristina Tom has chronic kidney disease. Her last creatinine was 1.[address] scan did show some atrophy of the kidneys bilaterally. Most likely the chronic kidney disease is from her hypertension and may have had some contribution by nonsteroidal anti-inflammatory agents as well. 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 The beater machine operator did not feel that there was any significant issue occurring. 2. The patient has acute kidney injury. Urine sodium 14. Renal ultrasound unremarkable Most likely pre renal azotemia. She is getting IV fluids. Her creatinine fell to 2.5. Continue the fluids. 3. The patient has hypertension. Her blood pressure is under good control. 4. The patient has a small-bowel obstruction. Hernia surgery was done yesterday. Subjective Date/time seen: 02/14/22 15:52 Interval history: Patient is alert. She had surgery and it went well. NG tube is out. Eating clear liquid lunch. Exam Narrative: WDWN in NAD skin no rash or subcu nodules head ncat lungs clear bilaterally cor reg no rub abd BS+ hypoactive, minimally tender and soft ext no edema. Objective Data Vital Signs Vital Signs: Vital Signs - 24 hr 02/13/22 16:23 02/13/22 16:38 02/13/22 16:53 Temperature 36.4 C Pulse Rate 66 45 L 50 L Respiratory Rate 16 18 16 Blood Pressure 109/65 111/60 116/64 Pulse Oximetry 97 100 96 Oxygen Delivery Simple Face Mask Simple Face Mask Nasal Cannula Oxygen Flow Rate 6 6 2 02/13/22 17:08 02/13/22 17:23 02/13/22 17:34 Temperature Pulse Rate 56 L 51 L 55 L Respiratory Rate 18 18 18 Blood Pressure 122/57 L 115/70 125/61 Pulse Oximetry 96 92 92 Oxygen Delivery Nasal Cannula Nasal Cannula Nasal Cannula Oxygen Flow Rate 2 2 1 02/13/22 18:01 02/13/22 17:45 02/13/22 17:45 Temperature 35.8 C L Pulse Rate 52 L 52 L Respiratory Rate 18 18 Blood Pressure 124/74 Pulse Oximetry 93 93 93 Oxygen Delivery Nasal Cannula Nasal Cannula Oxygen Flow Rate 1 2 02/13/22 18:00 02/13/22 18:30 02/13/22 20:00 Temperature 36.1 C L 36.1 C L Pulse Rate 56 L 56 L Respiratory Rate 18 18 Blood Pressure 120/62 118/58 L Pulse Oximetry 95 95 95 Oxygen Delivery Nasal Cannula Oxygen Flow Rate 2 02/13/22 19:20 02/13/22 22:33 02/13/22 23:20 Temperature 35.7 C L 36.6 C Pulse Rate 45 L 44 L Respiratory Rate 20 16 Blood Pressure 103/62 115/54 L Pulse Oximetry 100 93 93 Oxygen Delivery Room Air Oxygen Flow Rate 02/14/22 04:00 02/14/22 07:20 02/14/22 08:02 Temperature 36.6 C 36.4 C L Pulse Rate 63 47 L Respiratory Rate 14 18 Blood Pressure 119/69 118/63 Pulse Oximetry 93 92 92 Oxygen Delivery Room Air Oxygen Flow Rate 02/14/22 08:44 02/14/22 11:20 02/14/22 15:20 Temperature 36.2 C L 36.2 C L Pulse Rate 43 L 52 L Respiratory Rate 18 20 20 Blood Pressure 133/65 155/62 H Pulse Oximetry 92 96 99 Oxygen Delivery Room Air Oxygen Flow Rate Intake/Output Intake/Output: Intake & Output 02/11/22 02/12/22 02/13/22 02/14/22 23:59 23:59 23:59 23:59 Intake Total 2100 2600 1957 Output Total 550 1900 1450 Balance 1550 700 507 Meds/Results Medications: Active Medications Generic Name Dose Route Start Last Admin Trade Name Freq PRN Reason Stop Dose Admin Enoxaparin Sodium 30 mg 02/14/22 09:00 02/14/22 08:42 Enoxaparin 30 Mg/0.3 Ml Syringe SUB-Q 30 mg DAILY JARRETT Administration Hydralazine HCl 10 mg 02/12/22 15:24 Hydralazine Hcl 20 Mg/Ml Vial IV PUSH Q8H PRN Blood Pressure - High Hydralazine HCl 10 mg 02/12/22 19:35 Hydralazine Hcl 20 Mg/Ml Vial IV PUSH Q8H PRN Blood Pressure - High Hydromorphone HCl 0.5 mg 02/13/22 17:35 Hydromorphone Hcl Inj (*Crx) 1 Mg/Ml Syr IV PUSH Q2H PRN Pain Rated 4-6 Hydromorphone HCl 1 mg 02/13/22
[2022-02-14 16:12] LABS: Albumin 3.8 g/dL (3.8-4.8); Alpha 1 Globulin 0.5 g/dL (0.2-0.3); Alpha 2 Globulin 1.1 g/dL (0.5-0.9); Beta 1 Globulin 0.5 g/dL (0.4-0.6); Gamma Globulin 1.3 g/dL (0.8-1.7); Protein, Total 7.7 g/dL (6.1-8.1)
[2022-02-14] MEDS: HYDROmorphone HCL INJ (*CRX) 1 MG/ML SYR 0.5 MG IV PUSH (18:57)
[2022-02-15] VITALS (7 sets, daily range): BP systolic 129–162; BP diastolic 60–72; PULSE 48–64; RESP 14–19; TEMP 36.4–37.2; O2SAT 94–97
[2022-02-15] MEDS: HYDROmorphone HCL INJ (*CRX) 1 MG/ML SYR 0.5 MG IV PUSH (01:25)
[2022-02-15] MEDS: SODIUM CHLORIDE 0.9% IV 1,000 ML 125 ML IV CONT ×3 (01:26→09:08)
[2022-02-15] MEDS: LEVOTHYROXINE SODIUM INJ 100 MCG/5 ML VIAL 60 MCG IV PUSH (06:08)
[2022-02-15 07:51] LABS: Basophils Percent Auto 0.6 % (0.2-1.2); Eosinophils Absolute Auto 0.2 K/mm3 (0-0.3); Eosinophils Percent Auto 3.5 % (0-4.4); Hematocrit 34.3 % (37.0-47.0); Hemoglobin 10.6 g/dL (12.0-15.0); Immature Granulocyte Absolute 0.01 K/mm3 (0.00-0.031); Immature Granulocyte Percent A 0.2 % (0-0.5); Lymphocytes Absolute Auto 1.16 K/mm3 (0.9-3.2); Lymphocytes Percent Auto 22.6 % (18.3-44.2); Mean Corpuscular HGB Conc 30.9 g/dl (32-36); Mean Corpuscular Hemoglobin 30.6 pg (26-34); Mean Corpuscular Volume 99.1 fl (80-100); Mean Platelet Volume 9.8 fl (7.4-10.4); Monocytes Absolute Auto 0.7 K/mm3 (0.1-0.6); Monocytes Percent Auto 12.9 % (2.6-8.5); Neutrophils Absolute Auto 3.1 K/mm3 (1.3-6.7); Neutrophils Percent Auto 60.2 % (45.5-73.1); Platelet Count Result 202 k/mm3 (150-375); Red Blood Count 3.46 M/mm3 (4.2-5.4); Red Cell Distribution Width 13.2 % (11.5-14.5); White Blood Count 5.1 K/mm3 (4.5-10.0)
[2022-02-15 08:17] LABS: Alanine Aminotransferase 15 U/L (6-35); Albumin Level 3.3 g/dL (3.5-5.1); Alkaline Phosphatase 68 U/L (38-126); Anion Gap 10 mmol/L (8-16); Aspartate Amino Transferase 37 U/L (14-36); Bilirubin,Total 0.5 mg/dL (0.2-1.3); Blood Urea Nitrogen 36 mg/dL (7-17); Calcium 8.3 mg/dL (8.4-10.2); Carbon Dioxide 23 mmol/L (22-30); Chloride 106 mmol/L (98-107); Estimated CRCL calculation 45 ml/min; Estimated Glomerular Filt Rate 35; Glucose 82 mg/dL (65-110); Magnesium 1.8 mg/dL (1.6-2.3); Phosphorus 2.8 mg/dL (2.5-4.5); Potassium 3.6 mmol/L (3.4-5.0); Sodium 139 mmol/L (137-145)
[2022-02-15] MEDS: ENOXAPARIN 30 MG/0.3 ML SYRINGE SUB-Q (09:03)
--- NOTE | 2022-02-15 09:07 | PM.IMPN ---
Progress Note: A&P Assessment and Plan (1) Incarcerated incisional hernia: Code(s): K43.0 - Incisional hernia with obstruction, without gangrene Status: Acute Assessment and Plan: CT shows a small bowel obstruction resulting from herniation general surgery consulted POD 2 s/p hernia repair Tolerating clears, passing flatus but no BM Further management per surgery (2) Small bowel obstruction: Code(s): K56.609 - Unspecified intestinal obstruction, unspecified as to partial versus complete obstruction Status: Acute Assessment and Plan: - secondary to incarcerated incisional hernia unable to be reduced per surgery team in ER. - plan as above (3) Acute kidney injury: Code(s): N17.9 - Acute kidney failure, unspecified Status: Acute Assessment and Plan: - past history of renal failure due to NSAID use her which improved after NSAIDs were discontinued. - Most likely related to dehydration and nausea and vomiting - renal ultrasound normal kidney sizes - nephrology consulted - significant improvement today, seems to be near her baseline now w/ creat of 1.5 (4) Morbid obesity with BMI of 45.0-49.9, adult: Code(s): E66.01 - Morbid (severe) obesity due to excess calories; Z68.42 - Body mass index [BMI] 45.0-49.9, adult Status: Chronic Assessment and Plan: BMI is 46.9 Life style changes (5) History of hypertension: Code(s): Z86.79 - Personal history of other diseases of the circulatory system Status: Chronic Assessment and Plan: BP is 131/70 restart home medications (6) History of hypothyroidism: Code(s): Z86.39 - Personal history of other endocrine, nutritional and metabolic disease Status: Acute Assessment and Plan: -TSH 2.290 -continue levothyroxine (7) Screening for HIV (human immunodeficiency virus): Code(s): Z11.4 - Encounter for screening for human immunodeficiency virus [HIV] Status: Acute Assessment and Plan: -HIV screen apparently run on admission for acute renal failure, came back positive -no prior known hx of HIV -this was repeated and again positive -confirmatory HIV tests pending -pt is aware Subjective Date/time seen: 02/15/22 09:07 Interval history: 61 yo female w/ hx of HTN, hypothyroid, CKD, morbid obesity, bariatric surgery, admitted for incarcerated hernia. POD 2. Doing well. Passing flatus but no BM yet. Some soreness in her abd but no significant pain. No N/V. Tolerating clear liquids. Review of Systems Review of Systems: All systems reviewed & are unremarkable except as noted in HPI and below Exam Narrative: General: No acute distress, non toxic appearing, obese Eyes: PERRL, no scleral icterus HEENT: NCAT, external ears normal, MMM Respiratory: No respiratory distress, Lungs CTA bilaterally, no wheezing Cardiovascular: RRR, no murmur Abdominal: Soft, mildly tender over incision, incision c/d/i, positive bowel sounds, no rebound or guarding Musculoskeletal: Moves all 4 extremities, no edema Neurological: A/Ox3, speech clear, no facial asymmetry Skin: Warm, dry, no rashes Psychiatric: Normal affect, normal mood Objective Data Vital Signs Vital Signs: Vital Signs - 24 hr 02/14/22 11:20 02/14/22 15:20 02/14/22 20:00 Temperature 97.1 F L 97.1 F L 97.7 F Pulse Rate 43 L 52 L 49 L Respiratory Rate 20 20 16 Blood Pressure 133/65 155/62 H 133/54 L Pulse Oximetry 96 99 99 02/15/22 00:00 02/15/22 04:00 02/15/22 08:00 Temperature 97.5 F L 97.8 F 98 F Pulse Rate 48 L 60 51 L Respiratory Rate 19 16 14 Blood Pressure 129/65 131/70 145/60 H Pulse Oximetry 97 97 95 Intake/Output Intake/Output: Intake & Output 02/12/22 02/13/22 02/14/22 02/15/22 23:59 23:59 23:59 23:59 Intake Total 2100 2600 3917 3130 Output Total 550 1900 2700 1900 Balance 7987 078 0578 1230
--- NOTE | 2022-02-15 10:53 | PC.NURSE ---
ok to Mayito/C andrew per Dr Linsday and Dr. Garcia
--- NOTE | 2022-02-15 12:00 | PM.PNGS ---
Progress Note: A&P Assessment and Plan (1) Small bowel obstruction: Code(s): K56.609 - Unspecified intestinal obstruction, unspecified as to partial versus complete obstruction Status: Acute Assessment and Plan: Advance diet as tolerated Increase activity Possibly home tomorrow if continuing to improve (2) Incarcerated incisional hernia: Code(s): K43.0 - Incisional hernia with obstruction, without gangrene Status: Acute Subjective Subjective Date/Time Seen: 02/15/22 12:00 Interval history: Passing flatus and had small BM. No nausea/vomiting. Tolerating clears. Pain controlled. Exam GI: Inspection: non-distended and incision (intact with glue) GI Palp: Yes Soft to palpation, Yes Tenderness to palpation present (GI) (incisional) and No Guarding due to palpation present (GI) Auscultation: normal bowel sounds Objective Data Vital Signs Vital Signs: Vital Signs - 24 hr 02/14/22 15:20 02/14/22 20:00 02/15/22 00:00 Temperature 36.2 C L 36.5 C 36.4 C L Pulse Rate 52 L 49 L 48 L Respiratory Rate 20 16 19 Blood Pressure 155/62 H 133/54 L 129/65 Pulse Oximetry 99 99 97 Oxygen Delivery 02/15/22 04:00 02/15/22 08:00 02/15/22 08:00 Temperature 36.6 C 36.6 C Pulse Rate 60 51 L Respiratory Rate 16 14 Blood Pressure 131/70 145/60 H Pulse Oximetry 97 95 Oxygen Delivery Room Air Intake/Output Intake/Output: Intake & Output 02/12/22 02/13/22 02/14/22 02/15/22 23:59 23:59 23:59 23:59 Intake Total 2100 2600 3917 5130 Output Total 550 1900 2700 1900 Balance 8808 713 1008 3230 Meds/Results Medications: Active Medications Generic Name Dose Route Start Last Admin Trade Name Freq PRN Reason Stop Dose Admin Hydrocodone Bitart/Acetaminophen 1 tab 02/15/22 11:58 Hydrocodone/Acetaminophen (*Crx) 5-325 Mg Tablet PO Q4H PRN Pain Rated 4-6 Hydrocodone Bitart/Acetaminophen 1 tab 02/15/22 11:58 Hydrocodone/Acetaminophen (*Crx) 10-325 Mg Tablet PO Q4H PRN Pain Rated 7-10 Diltiazem HCl 180 mg 02/16/22 09:00 Diltiazem Hcl Cd 180 Mg Cap.Er.24h PO DAILY [facility] Enoxaparin Sodium 30 mg 02/14/22 09:00 02/15/22 09:03 Enoxaparin 30 Mg/0.3 Ml Syringe SUB-Q 30 mg DAILY JARRETT Administration Hydralazine HCl 10 mg 02/12/22 15:24 Hydralazine Hcl 20 Mg/Ml Vial IV PUSH Q8H PRN Blood Pressure - High Hydralazine HCl 10 mg 02/12/22 19:35 Hydralazine Hcl 20 Mg/Ml Vial IV PUSH Q8H PRN Blood Pressure - High Hydromorphone HCl 0.5 mg 02/13/22 17:35 02/15/22 01:25 Hydromorphone Hcl Inj (*Crx) 1 Mg/Ml Syr IV PUSH 0.5 mg Q2H PRN Administration Pain Rated 4-6 Hydromorphone HCl 1 mg 02/13/22 17:35 02/14/22 06:49 Hydromorphone Hcl Inj (*Crx) 1 Mg/Ml Syr IV PUSH 1 mg Q2H PRN Administration Pain Rated 7-10 Levothyroxine Sodium 60 mcg 02/13/22 06:30 02/15/22 06:08 Levothyroxine Sodium Inj 100 Mcg/5 Ml Vial IV PUSH 60 mcg DAILY@0630 [facility] Administration Lisinopril 40 mg 02/16/22 09:00 Lisinopril 20 Mg Tablet PO DAILY [facility] Ondansetron HCl 4 mg 02/12/22 15:12 Ondansetron Inj 4 Mg/2 Ml Vial IV PUSH Q4H PRN Nausea And Vomiting Phenol 1 spray 02/12/22 16:00 Phenol/Sod Pheno [place] (*Bkc) MUCOUS MEM PRN PRN Sore Throat Radiology Results: ITS Impressions Abdomen/Pelvis CT 02/12/22 10:21 IMPRESSION: 1. Small bowel obstruction resulting from herniation of a short segment of small bowel into one of a few small supraumbilical ventral hernias. 2. Small sliding-type hiatal hernia with change of prior likely bariatric surgery at the proximal stomach. Abdomen X-Ray 02/12/22 11:41 IMPRESSION: NG tube in satisfactory position in the lower body of the stomach Renal Ultrasound 02/13/22 09:32 IMPRESSION: 1. Normal kidney sizes. No hydronephrosis. 2. 3.5 cm cyst in left ovary, likely benign. Pelvis ultrasound is bandar
[2022-02-15] MEDS: HYDROcodone/acetaminophen (*CRX) 5-325 MG TABLET 1 TAB PO ×2 (12:11→20:18)
--- NOTE | 2022-02-15 12:54 | PM.PNNEP ---
Progress Note: A&P Additional Plan 1. Ana Cristina Tom has chronic kidney disease. Her last creatinine was 1.[address] scan did show some atrophy of the kidneys bilaterally. Most likely the chronic kidney disease is from her hypertension and may have had some contribution by nonsteroidal anti-inflammatory agents as well. 2. The patient has acute kidney injury. Urine sodium 14. Renal ultrasound unremarkable Most likely pre renal azotemia. She is getting IV fluids. Her creatinine fell to 1.5. electrolytes are all okay. Continue the fluids. Hammer can come out any time ready from standpoint of all others. 3. The patient has hypertension. Her blood pressure is under good control. 4. The patient has a small-bowel obstruction. Hernia surgery was done yesterday. Subjective Date/time seen: 02/15/22 12:55 Interval history: Patient is alert. She feels good. She is eating okay and it is staying down. Exam Narrative: WDWN in NAD skin no rash head ncat lungs clear bilaterally cor reg no rub abd BS+ hypoactive, minimally tender and soft ext no edema or cyanosis. Objective Data Vital Signs Vital Signs: Vital Signs - 24 hr 02/14/22 15:20 02/14/22 20:00 02/15/22 00:00 Temperature 36.2 C L 36.5 C 36.4 C L Pulse Rate 52 L 49 L 48 L Respiratory Rate 20 16 19 Blood Pressure 155/62 H 133/54 L 129/65 Pulse Oximetry 99 99 97 Oxygen Delivery 02/15/22 04:00 02/15/22 08:00 02/15/22 08:00 Temperature 36.6 C 36.6 C Pulse Rate 60 51 L Respiratory Rate 16 14 Blood Pressure 131/70 145/60 H Pulse Oximetry 97 95 Oxygen Delivery Room Air Intake/Output Intake/Output: Intake & Output 02/12/22 02/13/22 02/14/22 02/15/22 23:59 23:59 23:59 23:59 Intake Total 2100 2600 3917 5370 Output Total 550 1900 2700 1900 Balance 4872 373 5236 3470 Meds/Results Medications: Active Medications Generic Name Dose Route Start Last Admin Trade Name Freq PRN Reason Stop Dose Admin Hydrocodone Bitart/Acetaminophen 1 tab 02/15/22 11:58 02/15/22 12:11 Hydrocodone/Acetaminophen (*Crx) 5-325 Mg Tablet PO 1 tab Q4H PRN Administration Pain Rated 4-6 Hydrocodone Bitart/Acetaminophen 1 tab 02/15/22 11:58 Hydrocodone/Acetaminophen (*Crx) 10-325 Mg Tablet PO Q4H PRN Pain Rated 7-10 Diltiazem HCl 180 mg 02/16/22 09:00 Diltiazem Hcl Cd 180 Mg Cap.Er.24h PO DAILY [facility] Enoxaparin Sodium 30 mg 02/14/22 09:00 02/15/22 09:03 Enoxaparin 30 Mg/0.3 Ml Syringe SUB-Q 30 mg DAILY [facility] Administration Hydralazine HCl 10 mg 02/12/22 15:24 Hydralazine Hcl 20 Mg/Ml Vial IV PUSH Q8H PRN Blood Pressure - High Hydralazine HCl 10 mg 02/12/22 19:35 Hydralazine Hcl 20 Mg/Ml Vial IV PUSH Q8H PRN Blood Pressure - High Hydromorphone HCl 0.5 mg 02/13/22 17:35 02/15/22 01:25 Hydromorphone Hcl Inj (*Crx) 1 Mg/Ml Syr IV PUSH 0.5 mg Q2H PRN Administration Pain Rated 4-6 Hydromorphone HCl 1 mg 02/13/22 17:35 02/14/22 06:49 Hydromorphone Hcl Inj (*Crx) 1 Mg/Ml Syr IV PUSH 1 mg Q2H PRN Administration Pain Rated 7-10 Levothyroxine Sodium 60 mcg 02/13/22 06:30 02/15/22 06:08 Levothyroxine Sodium Inj 100 Mcg/5 Ml Vial IV PUSH 60 mcg DAILY@0630 [facility] Administration Lisinopril 40 mg 02/16/22 09:00 Lisinopril 20 Mg Tablet PO DAILY [facility] Ondansetron HCl 4 mg 02/12/22 15:12 Ondansetron Inj 4 Mg/2 Ml Vial IV PUSH Q4H PRN Nausea And Vomiting Phenol 1 spray 02/12/22 16:00 Phenol/Sod Pheno [place] (*Bkc) MUCOUS MEM PRN PRN Sore Throat Radiology Results: ITS Impressions Abdomen/Pelvis CT 02/12/22 10:21 IMPRESSION: 1. Small bowel obstruction resulting from herniation of a short segment of small bowel into one of a few small supraumbilical ventral hernias. 2. Small sliding-type hiatal hernia with change of prior likely bariatric surgery at the pro
[2022-02-15 13:09] LABS: Osmolality, Urine 322 mOsm/kg (50-1200)
[2022-02-15 13:09] LABS: Anti Streptolysin O Screen 115 IU/mL (<200)
[2022-02-15 16:35] LABS: HIV 1 2 Ag Ab 4th Gen w Rflxs Non-reactive (Non-reactive)
[2022-02-15 20:58] LABS: SM Antibody <1.0; SM/RNP Antibody <1.0
[2022-02-16 06:13] VITALS: BP 147/74; PULSE 56; RESP 18; TEMP 36.6; O2SAT 96
[2022-02-16] MEDS: LEVOTHYROXINE SODIUM INJ 100 MCG/5 ML VIAL 60 MCG IV PUSH (06:18)
--- NOTE | 2022-02-16 08:02 | PM.PNGS ---
Progress Note: A&P Assessment and Plan (1) Small bowel obstruction: Code(s): K56.609 - Unspecified intestinal obstruction, unspecified as to partial versus complete obstruction Status: Acute Assessment and Plan: Tolerating diet and bowels moving. OK to discharge today. Discussed postop instructions with patient. Follow up in 2 weeks. (2) Incarcerated incisional hernia: Code(s): K43.0 - Incisional hernia with obstruction, without gangrene Status: Acute Subjective Subjective Date/Time Seen: 02/16/22 08:02 Interval history: Tolerating diet. Bowels moving. No bloating or nausea. Exam GI: Inspection: non-distended and incision (intact with glue) GI Palp: Yes Soft to palpation, Yes Tenderness to palpation present (GI) (incisional), No Guarding due to palpation present (GI) and No Hernia present Auscultation: normal bowel sounds Objective Data Vital Signs Vital Signs: Vital Signs - 24 hr 02/15/22 12:00 02/15/22 16:00 02/15/22 20:00 Temperature 36.9 C 37.2 C Pulse Rate 57 L 58 L Respiratory Rate 14 14 Blood Pressure 161/64 H 156/65 H Pulse Oximetry 96 95 Oxygen Delivery Room Air 02/15/22 20:37 02/15/22 22:18 02/16/22 06:13 Temperature 36.8 C 36.6 C Pulse Rate 64 56 L Respiratory Rate 18 18 Blood Pressure 162/72 H 147/74 H Pulse Oximetry 94 95 96 Oxygen Delivery Room Air Intake/Output Intake/Output: Intake & Output 02/13/22 02/14/22 02/15/22 02/16/22 23:59 23:59 23:59 23:59 Intake Total 2600 3917 6950 200 Output Total 1900 2700 2600 2100 Balance 700 1217 4350 -1900 Meds/Results Medications: Active Medications Generic Name Dose Route Start Last Admin Trade Name Freq PRN Reason Stop Dose Admin Hydrocodone Bitart/Acetaminophen 1 tab 02/15/22 11:58 02/15/22 20:18 Hydrocodone/Acetaminophen (*Crx) 5-325 Mg Tablet PO 1 tab Q4H PRN Administration Pain Rated 4-6 Hydrocodone Bitart/Acetaminophen 1 tab 02/15/22 11:58 Hydrocodone/Acetaminophen (*Crx) 10-325 Mg Tablet PO Q4H PRN Pain Rated 7-10 Diltiazem HCl 180 mg 02/16/22 09:00 Diltiazem Hcl Cd 180 Mg Cap.Er.24h PO DAILY [facility] Enoxaparin Sodium 30 mg 02/14/22 09:00 02/15/22 09:03 Enoxaparin 30 Mg/0.3 Ml Syringe SUB-Q 30 mg DAILY JARRETT Administration Hydralazine HCl 10 mg 02/12/22 15:24 Hydralazine Hcl 20 Mg/Ml Vial IV PUSH Q8H PRN Blood Pressure - High Hydralazine HCl 10 mg 02/12/22 19:35 Hydralazine Hcl 20 Mg/Ml Vial IV PUSH Q8H PRN Blood Pressure - High Hydromorphone HCl 0.5 mg 02/13/22 17:35 02/15/22 01:25 Hydromorphone Hcl Inj (*Crx) 1 Mg/Ml Syr IV PUSH 0.5 mg Q2H PRN Administration Pain Rated 4-6 Hydromorphone HCl 1 mg 02/13/22 17:35 02/14/22 06:49 Hydromorphone Hcl Inj (*Crx) 1 Mg/Ml Syr IV PUSH 1 mg Q2H PRN Administration Pain Rated 7-10 Levothyroxine Sodium 60 mcg 02/13/22 06:30 02/16/22 06:18 Levothyroxine Sodium Inj 100 Mcg/5 Ml Vial IV PUSH 60 mcg DAILY@0630 [facility] Administration Lisinopril 40 mg 02/16/22 09:00 Lisinopril 20 Mg Tablet PO DAILY [facility] Ondansetron HCl 4 mg 02/12/22 15:12 Ondansetron Inj 4 Mg/2 Ml Vial IV PUSH Q4H PRN Nausea And Vomiting Phenol 1 spray 02/12/22 16:00 Phenol/Sod Pheno [place]ott (*Bkc) MUCOUS MEM PRN PRN Sore Throat Radiology Results: ITS Impressions Abdomen/Pelvis CT 02/12/22 10:21 IMPRESSION: 1. Small bowel obstruction resulting from herniation of a short segment of small bowel into one of a few small supraumbilical ventral hernias. 2. Small sliding-type hiatal hernia with change of prior likely bariatric surgery at the proximal stomach. Abdomen X-Ray 02/12/22 11:41 IMPRESSION: NG tube in satisfactory position in the lower body of the stomach Renal Ultrasound 02/13/22 09:32 IMPRESSION: 1. Normal kidney sizes. No hydronephrosis. 2. 3.5 cm cyst in left ovary,
[2022-02-16 08:04] LABS: HIV 1 RNA PCR Not Detected Copies/mL; HIV 1 RNA PCR Not Detected Log cps/mL
[2022-02-16] MEDS: dilTIAZem HCL CD 180 MG CAP.ER.24H PO (08:14)
[2022-02-16] MEDS: lisinopriL 20 MG TABLET 40 MG PO (08:14)
[2022-02-16] MEDS: ENOXAPARIN 30 MG/0.3 ML SYRINGE SUB-Q (08:14)
--- NOTE | 2022-02-16 10:13 | PM.DS ---
DS: Admitting Diagnosis Discharge Date 02/16/22 Admitting Diagnosis incarcerated hernia DS: Discharge Diagnosis Discharge Diagnosis (1) Incarcerated incisional hernia: Code(s): K43.0 - Incisional hernia with obstruction, without gangrene Status: Acute Assessment and Plan: CT shows a small bowel obstruction resulting from herniation general surgery consulted POD 3 s/p hernia repair Tolerating solids, passing flatus, +BM Appropriate for discharge per surgery, their office will call w/ f/u appt Discharge instructions reviewed w/ her by surgeon (2) Small bowel obstruction: Code(s): K56.609 - Unspecified intestinal obstruction, unspecified as to partial versus complete obstruction Status: Acute Assessment and Plan: - secondary to incarcerated incisional hernia unable to be reduced per surgery team in ER. - plan as above (3) Acute kidney injury: Code(s): N17.9 - Acute kidney failure, unspecified Status: Acute Assessment and Plan: - past history of renal failure due to NSAID use her which improved after NSAIDs were discontinued. - Most likely related to dehydration and nausea and vomiting - renal ultrasound normal kidney sizes - nephrology consulted - significant improvement today, seems to be near her baseline now (4) Morbid obesity with BMI of 45.0-49.9, adult: Code(s): E66.01 - Morbid (severe) obesity due to excess calories; Z68.42 - Body mass index [BMI] 45.0-49.9, adult Status: Chronic Assessment and Plan: BMI is 46.9 Life style changes (5) History of hypertension: Code(s): Z86.79 - Personal history of other diseases of the circulatory system Status: Chronic Assessment and Plan: stable continued home medications (6) History of hypothyroidism: Code(s): Z86.39 - Personal history of other endocrine, nutritional and metabolic disease Status: Acute Assessment and Plan: -TSH 2.290 -continued levothyroxine (7) Screening for HIV (human immunodeficiency virus): Code(s): Z11.4 - Encounter for screening for human immunodeficiency virus [HIV] Status: Acute Assessment and Plan: -HIV screen apparently run on admission for acute renal failure, came back positive -no prior known hx of HIV -this was repeated and again positive -confirmatory HIV tests pending -pt is aware -no risk factors and routinely gives blood, potentially a false positive? -discussed w/ her pcp Dr. Mujica, he will see her next week to f/u on pending confirmatory tests and intiate plan of care if indicated DS: Summary Hospital Course Reason for hospitalization: 61 yo female w/ hx of HTN, hypothyroid, CKD, morbid obesity, bariatric surgery, admitted for incarcerated hernia. Please see HPI for further details. Hospital Course: Please see above for details of hospital course. Status at Discharge Cognitive/behavioral status at discharge: stable Functional status at discharge: independent ambulation Overall status at discharge: patient is progressing back to baseline Time Spent with Patient Time attestation: Total time spent providing and/or coordinating discharge services: 45 Time spent: Greater than 30 minutes Exam Narrative: General: No acute distress, non toxic appearing, obese Eyes: PERRL, no scleral icterus HEENT: NCAT, external ears normal, MMM Respiratory: No respiratory distress, Lungs CTA bilaterally, no wheezing Cardiovascular: RRR, no murmur Abdominal: Soft, non tender, incision c/d/i, positive bowel sounds, no rebound or guarding Musculoskeletal: Moves all 4 extremities, no edema Neurological: A/Ox3, speech clear, no facial asymmetry Skin: Warm, dry, no rashes Psychiatric: Normal affect, normal mood DS: Data Data Completed and Pending Completed studies during hospitalization: Pending at discharge 02/13/22 15:21 Surgical [PTH] Routine
[2022-02-16 10:21] LABS: Anion Gap 9 mmol/L (8-16); Blood Urea Nitrogen 22 mg/dL (7-17); Calcium 9.1 mg/dL (8.4-10.2); Carbon Dioxide 22 mmol/L (22-30); Chloride 106 mmol/L (98-107); Estimated CRCL calculation 51 ml/min; Estimated Glomerular Filt Rate 42; Glucose 85 mg/dL (65-110); Potassium 3.8 mmol/L (3.4-5.0); Sodium 137 mmol/L (137-145)
[2022-02-16 15:56] LABS: Chloride Rand Ur <20 mmol/L (32-290); Creatinine Random Urine 223 mg/dL (20-275)
[2022-02-16 19:17] LABS: Complement Total CH50 >60 U/mL (31-60)
[2022-02-19 07:27] LABS: Anti Glomerular Basement Memb <1.0 AI (<1.0)
[2022-02-19 07:27] LABS: Total Protein/Creatinine Ratio 698 mg/g creat (21-161)
[2022-02-19 07:27] LABS: HIV DNA PCR (Qual) Not Detected (Not Detected)
[2022-02-20 07:13] LABS: Anti Nuclear Antibody Titer 1:40 (Negative)
[2022-02-20 12:18] LABS: Absolute CD4 Count 604 cells/uL (490-1740); Lymphocytes, Absolute 1092 cells/uL (850-3900); Percent CD4 Cells 55 % (30-61)
[2022-02-20 22:40] LABS: ANCA Screen Negative (Negative)
[2022-02-21 18:19] LABS: Toxoplasma IgG Antibody <7.20 IU/mL (<7.20)
[2022-02-21 18:42] LABS: HIV Genotype NOT DETECTED
[2022-02-27 14:29] LABS: Albumin 65 %; Measured Kappa Chains 4.84 mg/dL (<2.00); Measured Lambda Chains 1.81 mg/dL (<2.00); Pro/Creat Ratio 784 mg/g creat (<=114); Total Kappa Chains 101.64 mg/24 h; Total Lambda Chains 38.01 mg/24 h
[2022-02-27 14:51] LABS: Protein,total, 24 Hr Ur 1197 mg/24h
== END 2022-02-16 12:14 | disposition home or self-care (01) | DRG 354 ==
LOC: ANHED 09:46 → ANH3MEDSUR 12:55
PROVIDERS: Internal Medicine Nephrology; Nurse Practitioner; Physician Assistant; Surgery; Admitting Provider Chiropractor; Emergency Provider Emergency Medicine; PCP Family Medicine; Visit Provider Student in an Organized Health Care Education/Training Program
PROC: 0WQF0ZZ Repair Abdominal Wall, Open Approach (ICD-10-PCS; principal; 2022-02-13 15:00)
DX: K43.0 Incisional hernia with obstruction, without gangrene (principal); N17.9 Acute kidney failure, unspecified; Z68.42 Body mass index [BMI] 45.0-49.9, adult; N17.8 Other acute kidney failure; T39.395A Adverse effect of other nonsteroidal anti-inflammatory drugs [NSAID], initial encounter; I12.9 Hypertensive chronic kidney disease with stage 1 through stage 4 chronic kidney disease, or unspecified chronic kidney disease; N18.9 Chronic kidney disease, unspecified; Z20.822 Contact with and (suspected) exposure to COVID-19; E86.0 Dehydration; E66.01 Morbid (severe) obesity due to excess calories; Z21 Asymptomatic human immunodeficiency virus [HIV] infection status; M19.90 Unspecified osteoarthritis, unspecified site; Z98.84 Bariatric surgery status; Z90.49 Acquired absence of other specified parts of digestive tract; Z86.39 Personal history of other endocrine, nutritional and metabolic disease; Z87.891 Personal history of nicotine dependence
CPT/HCPCS: 36415; 74176; 76775; 80048; 80053; 80076; 81001; 82436; 82550; 82570; 82595; 83520; 83605; 83690; 83735; 83930; 83935; 84100; 84133; 84155; 84156; 84165; 84166; 84300; 84443; 85025; 85027; 85652; 85999; 86036; 86038; 86039; 86060; 86140; 86160; 86162; 86215; 86225; 86235; 86334; 86335; 86361; 86703; 86705; 86706; 86777; 86803; 87340; 87389; 87535; 87536; 87900; 87901; 88302; 96361; 96365; 96375; 99285; A9270; C9290; C9803; G0432; J0131; J0330; J0690; J1100; J1170; J1650; J2250; J2370; J2405; J2704; J2710; J3010; J7030; J7120; U0003; U0005

== ENCOUNTER 2022-07-20 09:53 | Outpatient (RCR) | payer BC, SELFPAY ==
--- NOTE | 2022-07-20 10:47 | PTOPEVAL1 ---
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 she reports she let it go for a while and eventually needed a shoulder replacement. she reports she had a reverse total shoulder replacement on 06/28/22. she reports she gets to take her sling off next week. she reports she has been doing a few exercises at home on her own. she reports with her exercises she has felt a catch in the R shoulder. she reports this does concern her. Reported Pain Level Pain Score 0: Self Report Assessment PT Clinical Summary mrs. yañez presents to skilled PT services for evaluation and treatment of R shoulder pain and weakness following a R reverse TSA. she presents still under surgical precautions for shoulder rom and lifting. she would benefit from skilled PT to improve her objective/functional deficits and progress towards a return to her prior level functional activity performance/quality of life. Plan of Care Interventions Electrical Stimulation,Hot Pack/Cold Pack,Manual Therapy,Neuro Re-education,Patient/Caregiver Educati,Therapeutic Activities,Therapeutic Exercise PT Services Indicated Yes Treatment Frequency and 2x weekly for 8 visits Duration These treatments will address the objective and functional deficits as defined above. The patient will be advanced safely and appropriately in order for the patient to progress towards his/her prior level of function. Additional exercises will be introduced and as well as a comprehensive home exercise program upon discharge, if needed, ?to ensure carryover of functional gains achieved in the clinic. This treatment plan has been reviewed and agreement upon by the patient.
--- NOTE | 2022-08-14 13:58 | PTOPPROG ---
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 She does not have very much pain in it except it seems to catch when she lays down and she has to stand up and let it dangle to feel better. She also notes difficulty raising her arm overhead, lifting, and carrying items. Assessment PT Clinical Summary Meghana Barajas is 6.5 weeks s/p right reverse total shoulder arthroplasty. She is reporting catching in the right shoulder when she lays down and difficulty reaching, lifting, and carrying. She objectively demonstrates improved right shoulder active and passive ROM. She continues to have deficits in right shoulder active ROM, decreased right shoulder strength, and decreased functional abilities of lifting and carrying. She has not moved into internal rotation or past 20 degrees into external rotation or began strengthening per her protocol. She will continue to benefit from skilled PT to further address these ongoing limitations and to begin strengthening. Plan of Care Interventions Electrical Stimulation,Hot Pack/Cold Pack,Manual Therapy,Patient/Caregiver Educati,Therapeutic Activities,Therapeutic Exercise PT Services Indicated Yes Treatment Frequency and 2 times a week for 8 visits. Duration These treatments will address the objective and functional deficits as defined above. The patient will be advanced safely and appropriately in order for the patient to progress towards his/her prior level of function. Additional exercises will be introduced and as well as a comprehensive home exercise program upon discharge, if needed, ?to ensure carryover of functional gains achieved in the clinic. This treatment plan has been reviewed and agreement upon by the patient.
--- NOTE | 2022-09-11 08:11 | PTOPPROG ---
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 She does note soreness after using it a lot. She feels limited with lifting and carrying. Assessment PT Clinical Summary Meghana Barajas is 10.5 weeks s/p right reverse total shoulder arthroplasty. 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 She objectively demonstrates improved right shoulder active and passive ROM with ongoing limitations noted into active external rotation. She continues to demonstrate deficits in right shoulder strength with significant limitations noted in external rotation strength. She did not start strengthening until 4 weeks ago due to protocol limitations. She will continue to benefit from skilled PT to further address right shoulder strength to return her to her previous level of function. Plan of Care Interventions Electrical Stimulation,Hot Pack/Cold Pack,Manual Therapy,Patient/Caregiver Educati,Therapeutic Activities,Therapeutic Exercise PT Services Indicated Yes Treatment Frequency and 2 times a week for 4 visits Duration These treatments will address the objective and functional deficits as defined above. The patient will be advanced safely and appropriately in order for the patient to progress towards his/her prior level of function. Additional exercises will be introduced and as well as a comprehensive home exercise program upon discharge, if needed, ?to ensure carryover of functional gains achieved in the clinic. This treatment plan has been reviewed and agreement upon by the patient.
[2022-09-25 09:05] VITALS: BP_SYST 170
--- NOTE | 2022-09-25 10:06 | PTOPDC ---
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 She has occasional catching with certain movements but that is getting less frequent. She does feel she is limited with lifting overhead with weight in her hands. She feels she has improved 80% overall since surgery. Reported Pain Level Pain Score 0: Self Report Assessment PT Clinical Summary Meghana Barajas is 12.5 weeks s/p right reverse total shoulder arthroplasty. She is reporting no pain and less frequent catching in the right shoulder with daily activities. She feels she has improved 80% overall and she only notes limits with lifting overhead with weight in her hands. She objectively demonstrates improved right shoulder active and passive ROM with ongoing mild limitations noted into active external rotation. She demonstrate improved right shoulder strength with mild limitations still noted. She is independent in a home exercise program to continue strengthening. She will be discharged from formal PT this date. Plan of Care Interventions Electrical Stimulation,Hot Pack/Cold Pack,Manual Therapy,Patient/Caregiver Educati,Therapeutic Activities,Therapeutic Exercise PT Services Indicated No Treatment Frequency and Discharge Duration
== END 2022-09-25 10:31 | disposition home or self-care (01) ==
LOC: CHSPT 09:53
PROVIDERS: Visit Provider Orthopaedic Surgery Hand Surgery
DX: M25.511 Pain in right shoulder (principal)
CPT/HCPCS: 97014; 97110; 97140; 97161; 97530; G0283

== ENCOUNTER → 2023-01-25 11:19 | Outpatient (CLI) | payer BC, SELFPAY ==
--- NOTE | ~2023-01-25 | CT_ITS ---
EXAMINATION: CT abdomen pelvis wo con DATE: 01/25/2023 11:31 INDICATION: Incisional hernia without obstruction or gangrene TECHNIQUE: Computed tomography (CT) of the abdomen and pelvis was performed without intravenous contr ast. The dose-length product (DLP) was 975.47 mGy-cm. Automated exposure control and iterative recons truction technique were employed. COMPARISON: 02/12/2022 FINDINGS: There are stable subpleural nodules of the visualized lung bases. The heart size is normal. There are surgical changes in the stomach. There is a small sliding hiatal hernia. Changes of cholec ystectomy are noted. The liver, spleen, pancreas, and adrenal glands are normal. Cysts of the kidneys measure up to 2.6 cm on the left. No pathologically enlarged abdominal or pelvic lymph nodes are kit ntified. No free intraperitoneal gas or evidence of bowel obstruction. Colonic diverticulosis is pres ent without evidence of diverticulitis. There is a a [place], midline supraumbilical ventral hernia containing nonobstructed small bowel. There is severe lumbar spondylosis. There is a chronic 3.7 cm cystic lesion of the left adnexa. IMPRESSION: 1. [place] supraumbilical ventral hernia containing nonobstructed small bowel. Reviewed, dictated and finalized at location B. IMPRESSION: 1. [place] supraumbilical ventral hernia containing nonobstructed small bowel .
== END ==
PROVIDERS: PCP Surgery; Visit Provider Surgery
DX: K43.2 Incisional hernia without obstruction or gangrene (principal)
CPT/HCPCS: 74176

== ENCOUNTER 2023-02-23 09:35 | Outpatient (CLI) | payer BC, SELFPAY ==
[2023-02-23 10:40] LABS: Anion Gap 7 mmol/L (8-16); Blood Urea Nitrogen 28 mg/dL (7-17); Calcium 10.2 mg/dL (8.4-10.2); Carbon Dioxide 25 mmol/L (22-30); Chloride 105 mmol/L (98-107); Estimated Glomerular Filt Rate 46; Glucose 90 mg/dL (65-110); Potassium 4.3 mmol/L (3.4-5.0); Sodium 137 mmol/L (137-145)
[2023-02-23 10:45] LABS: Prothrombin Time 13.3 Seconds (11.1-14.7)
[2023-02-23 10:46] LABS: Partial Thromboplastin Time 26.9 SECONDS (22.3-36.8)
== END 2023-02-23 09:36 | disposition home or self-care (01) ==
PROVIDERS: PCP Family Medicine; Visit Provider Anesthesiology
DX: Z01.812 Encounter for preprocedural laboratory examination (principal); I12.9 Hypertensive chronic kidney disease with stage 1 through stage 4 chronic kidney disease, or unspecified chronic kidney disease; I48.0 Paroxysmal atrial fibrillation
CPT/HCPCS: 36415; 80048; 85610; 85730

== ENCOUNTER 2023-02-25 18:06 | Inpatient (IN) | payer BC, SELFPAY ==
[2023-02-14 14:21] VITALS: BMI 41.6
--- NOTE | 2023-02-14 14:40 | PC.NURSE ---
Report to the Outpatient Waiting Room, entrance under the green pavilion located off [facility], at time 10:00 on date 02/25/23. Planned Procedure Time: 12:00. Time changes happen often and if your time is changed the preop area will call you the afternoon before. - You and your visitor will be asked to self-screen and do not enter if you have any COVID symptoms. - A mask is optional within the hospital at this time. Patients may have clear liquids (water, carbonated beverages, clear teas, apple juice) until 3 hours prior to surgery with a maximum of 20 ounces. - No food from midnight until time of surgery Take the following medications with a SIP of water the morning of surgery: AMLODIPINE, LEVOTHYROXINE DO NOT STOP ANY OF YOUR OTHER PRESCRIPTION MEDICATIONS PRIOR TO SURGERY ?EXCEPT THE FOLLOWING Medications to discontinue per physician VITAMINS AND SUPPLEMENTS Date to take last dose 02-21-23 Please no make-up, nail hebrew, hairspray, perfume, deodorant, or body powder the day of surgery. No jewelry (including any body piercings) or valuables the day of surgery, leave them at home. Please take a shower or bath the night before, or the morning of, surgery with an antibacterial soap (HIBICLENS). Wear comfortable, loose fitting clothing. - Jewelry must be removed prior to entering the operating room. Rings and piercings that are not removed may be cut off. - The hospital will not accept responsibility for valuables. - Please leave all valuables, including medications, at home the day of surgery. If you are going home after surgery, a licensed restaurant delivery driver must drive you home. - NO public transportation without another adult if you receive anesthesia. - We recommend that an adult stay with you for 24 hours following discharge. - We also recommend that you do not drive, make important decision, drink alcoholic beverages, or take any drugs that were not prescribed by your health care provider for at least 24 hours after your discharge time. Follow any additional instructions given to you from your surgeon. If you or anyone in your household have experienced Covid symptoms in the past week, please notify your surgeon or the nurse liaison at the phone number below for possible testing. Telephone instructions given to PT BRIANA WILLINGHAM and asked if any additional questions and then verbalized understanding. Patient advised to call surgeon office or pre surgery nurse liaison [phone] if any additional questions.
[2023-02-25] VITALS (13 sets, daily range): BP systolic 111–167; BP diastolic 62–88; PULSE 59–74; RESP 14–20; TEMP 35.8–36.9; O2SAT 90–100
[2023-02-25] MEDS: ACETAMINOPHEN 500 MG TABLET 1000 MG PO ×2 (10:06→20:32)
[2023-02-25] MEDS: KETOROLAC 15 MG/ML VIAL (*BKC) IV PUSH (11:25)
[2023-02-25] MEDS: LACTATED RINGERS 1,000 ML 30 ML IV CONT ×3 (11:25→17:43)
--- NOTE | 2023-02-25 11:40 | WPDANESEPPF ---
Anes - Initial Pre Proc Eval Procedure: Operation Date: 02/25/23 12:00 Proposed Procedures p Open Repair Incisional Hernia with Mesh, Bilateral Component Separation - Thad Garcia DO Date/Time: 02/25/23 11:40 Surgeon: Thad Garcia DO Pre Op Diagnosis: recurrent incisional hernia Patient Data Age: 62 Gender: F Height: 1.6 m Weight: 108 kg Last Vital Signs Temp 36.4 C L 02/25/23 10:36 Pulse 59 L 02/25/23 10:36 Resp 18 02/25/23 10:36 BP 167/62 H 02/25/23 10:36 Pulse Ox 99 02/25/23 10:36 O2 Del Method Room Air 02/25/23 10:36 Allergies Allergy/AdvReac Type Severity Reaction Status Date / Time No Known Allergies Allergy Verified 02/25/23 10:02 Home Medications Medication Instructions Recorded Confirmed Type lisinopril 40 mg tablet 40 mg PO DAILY 02/12/22 02/25/23 History glucosamine HCl 1,500 mg tablet 1,500 mg PO DAILY 11/11/22 02/25/23 History multivitamin (One Daily 1 tablet PO DAILY 11/11/22 02/25/23 History Multivitamin tablet) docusate sodium 100 mg capsule 100 mg PO DAILY 12/04/22 02/25/23 History levothyroxine 112 mcg tablet 112 mcg PO DAILY #90 tabs 01/18/23 02/25/23 Rx amlodipine 5 mg tablet 5 mg PO DAILY 02/14/23 02/25/23 History cholecalciferol (vitamin D3) 125 125 mcg PO DAILY 02/14/23 02/25/23 History mcg (5,000 unit) tablet (Vitamin D3) turmeric 400 mg capsule 400 mg PO DAILY 02/14/23 02/25/23 History Patient hx anesthesia problems: none Family hx anesthesia problems: none Results Review: All pre-operative results and documents have been reviewed as part of the pre-operative evaluation. [facility] Past Medical History Medical History CSF leak from ear repair done 10/2022 History of Graves' disease S/P radioactive thyroid ablation Hypertensive renal disease, stage 1 through stage 4 or unspecified chronic kidney disease Obstructive sleep apnea Osteoarthritis Paroxysmal atrial fibrillation Postprocedural hypothyroidism Prediabetes Surgical History Surgical History H/O shoulder replacement 06/2022 History of bariatric surgery 1975 gastroplasty History of section 1987 History of cholecystectomy 1980 History of foot surgery arthrodesis left foot 07/2011 History of incisional hernia repair Incarcerated incisional hernia repair on 02/13/22. 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 [employer] on [employer] code status full code Smoking packs per day: 1 Smoking cigarettes per day: 20.0 Years smoked: 10 Smoking pack-years: 10.00 Smoking status: Former smoker Tobacco type: cigarettes Second hand tobacco smoke exposure: Yes Smoking end date: 07/15/02 Alcohol intake: current Alcohol use details: 1 DRINK EVERY 3 WEEKS Substance use: never Substance use type: does not use Lack of Transportation: No Lack of Food: Never True Current Housing: I Have Housing Concerned About Future Housing: No Difficulty Paying Gas/Electric Bills: No Difficulty Paying for Meds: No Currently Unemployed: YES Education: High School Diploma/GED Difficulty w/ Childcare or Family Care: No Living arrangements: with family Additional living arrangements comments: Lives with her Occupation/Education: retired Gender identity (if verbalized by the patient): Female Sexual Orientation (if Verbalized by the Patient): Straight or Heterosexual Spiritual care concerns: No Anes - Eval Final PreProcedure Day of Procedure 02/25/23 11:40
--- NOTE | 2023-02-25 11:42 | WPDHPUPDATE1 ---
History and Physical Update Update Date/Time: 02/25/23 11:42 History and Physical has been reviewed, including an updated exam of the patient. There are NO changes in the patient's condition. Risks, benefits, and alternatives have been discussed and questions answered. Patient agrees to proceed with procedure.
[2023-02-25] MEDS: ALVIMOPAN 12 MG CAPSULE PO (11:49)
[2023-02-25] MEDS: ceFAZolin 2 GM/D5W 50 ML 2 GM/50 ML BAG IVPB (12:09)
[2023-02-25] MEDS: ceFAZolin SODIUM 1 GM VIAL 2 GM IV PUSH (16:00)
--- NOTE | 2023-02-25 16:58 | W.PM.PROC2 ---
Procedure Note - Detailed Date of Procedure 02/25/23 Pre-op Diagnosis recurrent incisional hernia Post-op Diagnosis Same (11 cm recurrent incisional hernia) Procedure Performed 1. Open retro rectus 11 cm recurrent incisional hernia repair with mesh 2. Bilateral myofascial advancement flap (transversus abdominis release--5 cm on right and a 6 cm on the left) Surgeon Thad Garcia DO Sawyer Helper Good Bryant MD Anesthesia General Indications This is a 62-year-old woman who presented with a recurrent bulge above her umbilicus. She has a prior history of open bariatric surgery and open cholecystectomy more than 40 years ago. She presented 1 year ago with an acute incarcerated incisional hernia causing a small-bowel obstruction. She had an open primary repair at that time. Over the past year she has noticed a recurrent bulge and it has become quite large. She underwent a CT of her abdomen and pelvis and this showed evidence of a 10-12 cm recurrent incisional hernia. Discussions were made with the patient about treatment options and decision was made to proceed with open recurrent hernia repair with mesh with bilateral component separation. Findings The patient was found to have a large recurrent incisional hernia measuring 11 cm wide. There were several loops of small bowel adhesed within the hernia sac but it was reducible. The hernia sac was excised and sent to the lab for pathology. All of the adhesions were taken down to adequately visualize entire abdominal wall. The fascia was pulled towards the midline but appeared to be under significant stress. Then developed a retro rectus plane and performed bilateral transversus abdominis release to adequately bring enough fascia together in midline to close the hernia defect. I released approximately 5 cm the right and 6 cm on the left to bring the fascia together. A 30 cm x 30 cm Bard soft mesh was placed within the retrorectus space. Nineteen round Juan drain was also placed within the retrorectus space. Dr. Bryant assisted with the bilateral retrorectus space development and bilateral transversus abdominis release, along with mesh placement fascial closure. Description of Procedure Procedure as well as risks, benefits, and alternatives were discussed with the patient. Written consent was obtained and placed in chart prior to procedure. Patient was brought back to surgical suite. She was placed supine on operating table. Time-out was done to confirm patient and procedure. She was then intubated by the anesthesia department. Her abdomen was prepped and draped in sterile fashion using chlorhexidine prep. A 25 cm vertical midline incision was made using a 10 blade scalpel. Electrocautery was used for hemostasis and for dissection through the subcutaneous tissue. The hernia sac was encountered and this was carefully dissected free circumferentially from the surrounding subcutaneous attachments. The hernia sac was dissected all the way down to fascia. I then cleared the fascia cephalad and caudad to the hernia defect. The hernia sac was then entered using electrocautery and was to visualize the bowel deep to it. Most of bowel was easily reduced back down into the abdominal cavity. Hernia sac was then extended slightly larger. There were some small bowel adhesions up to the edge of the hernia sac near the rectus muscle. These adhesions were carefully taken down using electrocautery and sharp dissection with Metzenbaum scissors. Small bowel was completely dissected free from around the hernia sac and was reduced the rest way back into the abdominal cavity. The hernia sac was then excised at the level of the fascia using electrocautery. The fascial incision was then extended cephalad and caudad to allow for adequate visualization. There were further omental adhesions that were carefully taken down using blunt dissection and electrocautery. Once these were taken down I was able to adequately visualize th
[2023-02-25] MEDS: fentaNYL CITRATE INJ (*CRX) 100 MCG/2 ML VIAL 25 MCG IV PUSH ×8 (17:09→18:35)
[2023-02-25] MEDS: KETOROLAC 30 MG/ML VIAL (*BKC) IV PUSH (17:37)
[2023-02-25] MEDS: diphenhydrAMINE HCl INJ 50 MG/ML VIAL 12.5 MG IV PUSH (17:39)
[2023-02-25] MEDS: ONDANSETRON INJ 4 MG/2 ML VIAL IV PUSH (19:44)
[2023-02-25] MEDS: LACTATED RINGERS 1,000 ML 150 ML IV CONT (19:56)
[2023-02-25] MEDS: PROPARACAINE HCL 0.5% 15 ML OPHTH SOLN 1 DROP EACH EYE (20:01)
[2023-02-25] MEDS: ceFAZolin 1 GM/NS 50 ML 1 GM/50 ML BAG IVPB (20:02)
[2023-02-25] MEDS: DICLOFENAC SODIUM 0.1% OPHTH SOLN 2.5 ML BOTTLE 1 DROP EACH EYE (22:11)
[2023-02-25] MEDS: HYDROmorphone HCL INJ (*CRX) 1 MG/ML SYR IV PUSH (22:17)
[2023-02-26] VITALS (7 sets, daily range): BP systolic 115–154; BP diastolic 63–70; PULSE 64–86; RESP 18–20; TEMP 36.4–37.3; O2SAT 83–94
[2023-02-26] MEDS: LACTATED RINGERS 1,000 ML 150 ML IV CONT (03:47)
[2023-02-26] MEDS: ceFAZolin 1 GM/NS 50 ML 1 GM/50 ML BAG IVPB (03:47)
[2023-02-26] MEDS: HYDROmorphone HCL INJ (*CRX) 1 MG/ML SYR IV PUSH ×3 (03:51→22:22)
[2023-02-26 06:13] LABS: Hematocrit 33.6 % (37.0-47.0); Mean Corpuscular HGB Conc 32.7 g/dl (32-36); Mean Corpuscular Hemoglobin 31.3 pg (26-34); Mean Corpuscular Volume 95.7 fl (80-100); Mean Platelet Volume 9.4 fl (7.4-10.4); Platelet Count Result 239 k/mm3 (150-375); Red Blood Count 3.51 M/mm3 (4.2-5.4); Red Cell Distribution Width 13.2 % (11.5-14.5); White Blood Count 11.3 K/mm3 (4.5-10.0)
[2023-02-26 06:23] LABS: Anion Gap 6 mmol/L (8-16); Blood Urea Nitrogen 33 mg/dL (7-17); Carbon Dioxide 21 mmol/L (22-30); Chloride 106 mmol/L (98-107); Estimated CRCL calculation 41 ml/min; Estimated Glomerular Filt Rate 35; Glucose 143 mg/dL (65-110); Potassium 4.9 mmol/L (3.4-5.0); Sodium 133 mmol/L (137-145)
[2023-02-26 06:47] LABS: Band Neutrophils Percent 12 % (0-6); Lymphocytes Absolute Manual 0.33 K/mm3 (1.1-4.5); Monocytes Absolute Manual 0.67 K/mm3 (0.1-0.90); Monocytes Percent Manual 6 % (3-9); Neutrophils Absolute Manual 10.28 K/mm3 (1.7-7.2); Neutrophils Percent Manual 79 % (46-73); Platelet Estimate Adequate (Adequate); Schistocytes None Seen (NORMAL); Total Cells Counted 100
[2023-02-26] MEDS: LEVOTHYROXINE SODIUM 112 MCG TABLET PO (06:56)
[2023-02-26] MEDS: ACETAMINOPHEN 500 MG TABLET 1000 MG PO ×3 (06:56→17:17)
[2023-02-26] MEDS: lisinopriL 20 MG TABLET 40 MG PO (08:36)
[2023-02-26] MEDS: ENOXAPARIN 40 MG/0.4 ML SYRINGE SUB-Q (08:36)
[2023-02-26] MEDS: amLODIPine BESYLATE 5 MG TABLET PO (08:36)
[2023-02-26] MEDS: DOCUSATE SODIUM 100 MG CAPSULE PO (08:36)
--- NOTE | 2023-02-26 12:03 | PM.PNGS ---
Progress Note: A&P Assessment and Plan (1) Recurrent incisional hernia: Code(s): K43.2 - Incisional hernia without obstruction or gangrene Status: Acute Assessment and Plan: Slowly progressing POD1. Start getting up a little more with assistance. Remove Hammer. Monitor drain output. (2) Obstructive sleep apnea: Code(s): G47.33 - Obstructive sleep apnea (adult) (pediatric) Status: Acute (3) Hypertension: Qualifiers: Hypertension type: unspecified Qualified Code(s): I10 - Essential (primary) hypertension Code(s): I10 - Essential (primary) hypertension Status: Chronic (4) Hypothyroidism: Qualifiers: Hypothyroidism type: unspecified Qualified Code(s): E03.9 - Hypothyroidism, unspecified Code(s): E03.9 - Hypothyroidism, unspecified Status: Acute Subjective Subjective Date/Time Seen: 02/26/23 12:03 Interval history: Still having pain but trying to avoid the narcotics. Getting up with some assistance but very difficult due to abdominal pain. Tolerating clear liquids. Exam GI: Inspection: non-distended, incision (dressing dry) and other (MEIR drain serosanguinous) Urinary Catheter: Urinary Catheter: patent and draining and urine clear Objective Data Vital Signs Vital Signs: Vital Signs - 24 hr 02/25/23 17:04 02/25/23 17:45 02/25/23 17:50 Temperature 36.9 C Pulse Rate 73 74 Respiratory Rate 20 14 Blood Pressure 118/72 141/72 H Pulse Oximetry 97 100 Oxygen Delivery Simple Face Mask Simple Face Mask Room Air Oxygen Flow Rate 6 6 02/25/23 18:00 02/25/23 18:15 02/25/23 18:30 Temperature 36.6 C Pulse Rate 66 63 68 Respiratory Rate 14 14 14 Blood Pressure 138/77 125/78 111/71 Pulse Oximetry 90 94 98 Oxygen Delivery Room Air Nasal Cannula Nasal Cannula Oxygen Flow Rate 2 2 02/25/23 18:45 02/25/23 17:15 02/25/23 17:30 Temperature Pulse Rate 68 64 67 Respiratory Rate 14 18 16 Blood Pressure 128/74 126/76 136/72 Pulse Oximetry 98 99 100 Oxygen Delivery Nasal Cannula Simple Face Mask Simple Face Mask Oxygen Flow Rate 2 6 6 02/25/23 18:47 02/25/23 19:02 02/25/23 19:32 Temperature 35.8 C L 36.1 C L 36.2 C L Pulse Rate 73 66 71 Respiratory Rate 20 16 18 Blood Pressure 138/79 132/88 133/68 Pulse Oximetry 97 98 97 Oxygen Delivery Oxygen Flow Rate 02/25/23 20:32 02/26/23 00:32 02/26/23 04:32 Temperature 36.3 C L 36.4 C 36.6 C Pulse Rate 72 76 74 Respiratory Rate 18 18 18 Blood Pressure 130/66 135/68 115/65 Pulse Oximetry 92 90 91 Oxygen Delivery Oxygen Flow Rate 02/26/23 08:35 Temperature 36.7 C Pulse Rate 85 Respiratory Rate 20 Blood Pressure 122/69 Pulse Oximetry 91 Oxygen Delivery Oxygen Flow Rate Intake/Output Intake/Output: Intake & Output 02/23/23 02/24/23 02/25/23 02/26/23 23:59 23:59 23:59 23:59 Intake Total 550 3150 Output Total 410 620 Balance 140 2530 Meds/Results Medications: Active Medications Generic Name Dose Route Start Last Admin Trade Name Freq PRN Reason Stop Dose Admin Acetaminophen 1,000 mg 02/25/23 18:47 02/26/23 11:49 Acetaminophen 500 Mg Tablet PO 1,000 mg Q6HR [facility] Administration Alvimopan 12 mg 02/26/23 21:00 Alvimopan 12 Mg Capsule PO 03/05/23 20:59 Q12HR [facility] Amlodipine Besylate 5 mg 02/26/23 09:00 02/26/23 08:36 Amlodipine Besylate 5 Mg Tablet PO 5 mg DAILY JARRETT Administration Artificial Tears 1 drop 02/25/23 19:10 Artificial Tears Ophth Soln 15 Ml Bottle EACH EYE Q2H PRN Dry Eye(s) Diclofenac Sodium 1 drop 02/25/23 22:00 02/26/23 06:57 Diclofenac Sodium 0.1% Ophth Soln 2.5 Ml Bottle EACH EYE 03/01/23 21:59 Not Given Q8HR [facility] Docusate Sodium 100 mg 02/26/23 09:00 02/26/23 08:36 Docusate Sodium 100 Mg Capsule PO 100 mg DAILY JARRETT Administration Enoxaparin Sodium 40 mg 02/26/23 09:00 02/26/23 08:36 Enoxaparin 40 Mg/0.4 Ml Syringe SUB-Q
--- NOTE | 2023-02-26 13:54 | WPDANESPN ---
Anes - Prog Note Post-Op Date/Time: 02/26/23 13:54 Cardiovascular status: normal Respiratory status: normal Airway patency: baseline Mental status: baseline Post-Op hydration status: normal Vital Signs: Last Vital Signs Temp 36.5 C 02/26/23 12:32 Pulse 64 02/26/23 12:32 Resp 20 02/26/23 12:32 BP 124/63 02/26/23 12:32 Pulse Ox 94 02/26/23 12:32 O2 Del Method Nasal Cannula 02/25/23 18:45 O2 Flow Rate 2 02/25/23 18:45 Pain Score (VAS): 09/21 I/O: Intake & Output 02/25/23 02/26/23 02/26/23 23:59 07:59 15:59 Intake Total 500 3150 Output Total 410 550 70 Balance 90 2600 -70 Laboratory Tests 02/26/23 06:03 02/26/23 06:03 02/26/23 06:03 WBC 11.3 H RBC 3.51 L Hgb 11.0 L Hct 33.6 L MCV 95.7 MCH 31.3 MCHC 32.7 RDW 13.2 Plt Count 239 MPV 9.4 Immature Gran % (Auto) Not Reportable Neut % (Auto) Not Reportable Lymph % (Auto) Not Reportable [place] % (Auto) Not Reportable Eos % (Auto) Not Reportable Baso % (Auto) Not Reportable Lymph # (Auto) Not Reportable [place] # (Auto) Not Reportable Eos # (Auto) Not Reportable Baso # (Auto) Not Reportable Abs Immat Gran (auto) Not Reportable Absolute Neuts (auto) Not Reportable Absolute Nucleated RBC Not Reportable Total Counted 100 Neutrophils % (Manual) 79 H Band Neutrophils % 12 H Lymphocytes % (Manual) 3.0 L Monocytes % (Manual) 6 Nucleated RBC % Not Reportable Abs Neuts (Manual) 10.28 H Abs Lymphs (Manual) 0.33 L Abs Monocytes (Manual) 0.67 Platelet Estimate Adequate Schistocytes None seen Sodium 133 L Potassium 4.9 Chloride 106 Carbon Dioxide 21 L Anion Gap 6 L BUN 33 H Creatinine 1.50 H Estim Creat Clear Calc 41 Estimated GFR 35 L Glucose 143 H Calcium 9.0 Post-procedural complaints: none Patient Feedback: Patient satisfied with anesthetic care. Other Findings: Patient stated having a corneal abrasion yesterday after waking up. Stated RN gave her eye drops and the discomfort has resvoled. Pt states no blurred vision.
[2023-02-26] MEDS: oxyCODONE HCL (*CRX) 5 MG TAB IR PO (14:08)
[2023-02-26] MEDS: FAMOTIDINE 20 MG TABLET PO (17:17)
[2023-02-26] MEDS: ONDANSETRON INJ 4 MG/2 ML VIAL IV PUSH (17:43)
--- NOTE | 2023-02-26 19:14 | PC.NURSE ---
Notified Dr. Garcia that the patient is complaining of indigestion. Obtained orders for 20mg Pepcid PO BID and 200mg of TUMS Q6 PRN. Dr. Garcia instructed me to give the 2100 dose of pepcid now. Due to technical issues with pharmacy and [employer], the medication has not yet been added to the MAR. With the verification of a 2nd RN, (Sirisha Braun), I administered 20mg of pepcid at 1717.
[2023-02-26] MEDS: ALVIMOPAN 12 MG CAPSULE PO (21:17)
[2023-02-26] MEDS: CALCIUM CARBONATE (TUMS) 500 MG (200 MG ELEMENTAL) PO (21:17)
[2023-02-27] MEDS: ACETAMINOPHEN 500 MG TABLET 1000 MG PO ×4 (00:06→19:29)
[2023-02-27 05:01] VITALS: BP 133/65; PULSE 70; RESP 18; TEMP 36.5; O2SAT 95
[2023-02-27] MEDS: HYDROmorphone HCL INJ (*CRX) 1 MG/ML SYR IV PUSH (05:13)
[2023-02-27] MEDS: LEVOTHYROXINE SODIUM 112 MCG TABLET PO (05:14)
[2023-02-27 06:54] LABS: Hematocrit 30.5 % (37.0-47.0); Hemoglobin 9.6 g/dL (12.0-15.0); Mean Corpuscular HGB Conc 31.5 g/dl (32-36); Mean Corpuscular Hemoglobin 31.3 pg (26-34); Mean Corpuscular Volume 99.3 fl (80-100); Mean Platelet Volume 9.5 fl (7.4-10.4); Platelet Count Result 220 k/mm3 (150-375); Red Blood Count 3.07 M/mm3 (4.2-5.4); Red Cell Distribution Width 13.8 % (11.5-14.5); White Blood Count 9.4 K/mm3 (4.5-10.0)
[2023-02-27 06:58] LABS: Anion Gap 6 mmol/L (8-16); Blood Urea Nitrogen 36 mg/dL (7-17); Calcium 9.1 mg/dL (8.4-10.2); Carbon Dioxide 27 mmol/L (22-30); Chloride 100 mmol/L (98-107); Estimated CRCL calculation 38 ml/min; Estimated Glomerular Filt Rate 29; Glucose 108 mg/dL (65-110); Potassium 4.1 mmol/L (3.4-5.0); Sodium 133 mmol/L (137-145)
[2023-02-27 08:00] VITALS: O2SAT 94
[2023-02-27] MEDS: lisinopriL 20 MG TABLET 40 MG PO (09:08)
[2023-02-27] MEDS: FAMOTIDINE 20 MG TABLET PO ×2 (09:08→21:12)
[2023-02-27] MEDS: DOCUSATE SODIUM 100 MG CAPSULE PO (09:08)
[2023-02-27] MEDS: ALVIMOPAN 12 MG CAPSULE PO ×2 (09:09→21:12)
[2023-02-27] MEDS: ENOXAPARIN 40 MG/0.4 ML SYRINGE SUB-Q (09:09)
[2023-02-27] MEDS: amLODIPine BESYLATE 5 MG TABLET PO (09:09)
[2023-02-27] MEDS: oxyCODONE HCL (*CRX) 5 MG TAB IR 10 MG PO (09:11)
[2023-02-27] MEDS: CALCIUM CARBONATE (TUMS) 500 MG (200 MG ELEMENTAL) PO (09:14)
--- NOTE | 2023-02-27 10:46 | PM.PNGS ---
Progress Note: A&P Assessment and Plan (1) Recurrent incisional hernia: Code(s): K43.2 - Incisional hernia without obstruction or gangrene Status: Acute Assessment and Plan: Continue working with pain control and slowly increase activity. Monitor drain output. (2) Obstructive sleep apnea: Code(s): G47.33 - Obstructive sleep apnea (adult) (pediatric) Status: Acute (3) Hypertension: Qualifiers: Hypertension type: unspecified Qualified Code(s): I10 - Essential (primary) hypertension Code(s): I10 - Essential (primary) hypertension Status: Chronic (4) Hypothyroidism: Qualifiers: Hypothyroidism type: unspecified Qualified Code(s): E03.9 - Hypothyroidism, unspecified Code(s): E03.9 - Hypothyroidism, unspecified Status: Acute (5) Acute renal failure: Qualifiers: Acute renal failure type: unspecified Qualified Code(s): N17.9 - Acute kidney failure, unspecified Code(s): N17.9 - Acute kidney failure, unspecified Status: Acute Assessment and Plan: Cr likely elevated from dehydration from fluid losses during long open abdominal surgery. Tolerating liquids and urine output adequate. Repeat BMP in AM. Subjective Subjective Date/Time Seen: 02/27/23 10:46 Interval history: Had more pain throughout the day yesterday and required Dilaudid and Zofran in the afternoon. Pain control better today. Advancing diet to regular. Exam GI: Inspection: non-distended, incision (dressing dry) and other (MEIR drain serosanguinous) Urinary Catheter: Urinary Catheter: patent and draining and urine clear Objective Data Vital Signs Vital Signs: Vital Signs - 24 hr 02/26/23 12:32 02/26/23 18:11 02/26/23 18:10 Temperature 36.5 C 36.7 C Pulse Rate 64 85 Respiratory Rate 20 20 Blood Pressure 124/63 121/69 Pulse Oximetry 94 92 83 L Oxygen Delivery Nasal Cannula Oxygen Flow Rate 2 02/26/23 20:32 02/27/23 05:01 02/27/23 08:00 Temperature 37.3 C 36.5 C Pulse Rate 86 70 Respiratory Rate 18 18 Blood Pressure 154/70 H 133/65 Pulse Oximetry 91 95 94 Oxygen Delivery Room Air Oxygen Flow Rate Intake/Output Intake/Output: Intake & Output 02/24/23 02/25/23 02/26/23 08/16/23 23:59 23:59 23:59 23:59 Intake Total 550 4350 474 Output Total 410 970 50 Balance 140 3380 424 Meds/Results Medications: Active Medications Generic Name Dose Route Start Last Admin Trade Name Freq PRN Reason Stop Dose Admin Acetaminophen 1,000 mg 02/25/23 18:47 02/27/23 05:14 Acetaminophen 500 Mg Tablet PO 1,000 mg Q6HR JARRETT Administration Alvimopan 12 mg 02/26/23 21:00 02/27/23 09:09 Alvimopan 12 Mg Capsule PO 03/05/23 20:59 12 mg Q12HR JARRETT Administration Amlodipine Besylate 5 mg 02/26/23 09:00 02/27/23 09:09 Amlodipine Besylate 5 Mg Tablet PO 5 mg DAILY [facility] Administration Artificial Tears 1 drop 02/25/23 19:10 Artificial Tears Ophth Soln 15 Ml Bottle EACH EYE Q2H PRN Dry Eye(s) Calcium Carbonate 200 mg 02/26/23 17:02 02/27/23 09:14 Calcium Carbonate (Tums) 500 Mg (200 Mg Elemental) PO 200 mg Q6H PRN Administration Indigestion Diclofenac Sodium 1 drop 02/25/23 22:00 02/27/23 05:18 Diclofenac Sodium 0.1% Ophth Soln 2.5 Ml Bottle EACH EYE 03/01/23 21:59 Not Given Q8HR [facility] Docusate Sodium 100 mg 02/26/23 09:00 02/27/23 09:08 Docusate Sodium 100 Mg Capsule PO 100 mg DAILY [facility] Administration Enoxaparin Sodium 40 mg 02/26/23 09:00 02/27/23 09:09 Enoxaparin 40 Mg/0.4 Ml Syringe SUB-Q 40 mg DAILY [facility] Administration Famotidine 20 mg 02/26/23 21:00 02/27/23 09:08 Famotidine 20 Mg Tablet PO 20 mg Q12HR [facility] Administration Hydromorphone HCl 1 mg 02/25/23 18:47 02/27/23 05:13 Hydromorphone Hcl Inj (*Crx) 1 Mg/Ml Syr IV PUSH 1 mg Q2H PRN Administration Pain Rated 7-10 Hydromorphone HCl 0.5 mg
[2023-02-27 14:00] VITALS: BP 121/52; PULSE 65; RESP 20; TEMP 36.6; O2SAT 95
[2023-02-27 20:55] VITALS: BP 131/54; PULSE 70; RESP 18; TEMP 37.6; O2SAT 94
[2023-02-27 23:39] VITALS: O2SAT 94
[2023-02-28 04:30] VITALS: BP 135/58; PULSE 67; RESP 16; TEMP 36.6; O2SAT 91
[2023-02-28] MEDS: LEVOTHYROXINE SODIUM 112 MCG TABLET PO (05:26)
[2023-02-28] MEDS: ACETAMINOPHEN 500 MG TABLET 1000 MG PO (05:26)
[2023-02-28 06:57] LABS: Albumin Level 3.2 g/dL (3.5-5.1); Anion Gap 5 mmol/L (8-16); Blood Urea Nitrogen 35 mg/dL (7-17); Calcium 9.1 mg/dL (8.4-10.2); Carbon Dioxide 28 mmol/L (22-30); Chloride 104 mmol/L (98-107); Estimated CRCL calculation 40 ml/min; Estimated Glomerular Filt Rate 30; Glucose 97 mg/dL (65-110); Phosphorus 2.8 mg/dL (2.5-4.5); Potassium 4.1 mmol/L (3.4-5.0); Sodium 137 mmol/L (137-145)
[2023-02-28 08:00] VITALS: PULSE 83; O2SAT 92
[2023-02-28] MEDS: ENOXAPARIN 40 MG/0.4 ML SYRINGE SUB-Q (08:58)
[2023-02-28] MEDS: ALVIMOPAN 12 MG CAPSULE PO (08:58)
[2023-02-28] MEDS: amLODIPine BESYLATE 5 MG TABLET PO (08:58)
[2023-02-28] MEDS: DOCUSATE SODIUM 100 MG CAPSULE PO (08:58)
[2023-02-28] MEDS: lisinopriL 20 MG TABLET 40 MG PO (08:59)
[2023-02-28] MEDS: FAMOTIDINE 20 MG TABLET PO (08:59)
--- NOTE | 2023-02-28 12:49 | PM.DS ---
DS: Admitting Diagnosis Discharge Date 02/28/2023 Admitting Diagnosis Recurrent incisional hernia, hypertension, hypothyroidism, obstructive sleep apnea DS: Discharge Diagnosis Discharge Diagnosis (1) Recurrent incisional hernia: Code(s): K43.2 - Incisional hernia without obstruction or gangrene Status: Acute (2) Obstructive sleep apnea: Code(s): G47.33 - Obstructive sleep apnea (adult) (pediatric) Status: Acute (3) Acute renal failure: Qualifiers: Acute renal failure type: unspecified Qualified Code(s): N17.9 - Acute kidney failure, unspecified Code(s): N17.9 - Acute kidney failure, unspecified Status: Acute (4) Hypertension: Qualifiers: Hypertension type: unspecified Qualified Code(s): I10 - Essential (primary) hypertension Code(s): I10 - Essential (primary) hypertension Status: Chronic (5) Hypothyroidism: Qualifiers: Hypothyroidism type: unspecified Qualified Code(s): E03.9 - Hypothyroidism, unspecified Code(s): E03.9 - Hypothyroidism, unspecified Status: Acute DS: Summary Hospital Course Reason for hospitalization: Recurrent incisional hernia Hospital Course: This is a 62-year-old woman who presented to the hospital on 02/25/2023 for recurrent incisional hernia repair. She underwent open recurrent incisional hernia repair with mesh and bilateral transversus abdominis release. Surgery was uncomplicated and she was admitted to the surgical floor postoperatively. A MEIR drain was placed within the retrorectus space during the surgery. This was managed and monitored postoperatively. On postoperative day 1 she was still having significant abdominal pain but was tolerating clear liquids. Her diet was gradually advanced as tolerated. She continued to work with pain control with IV and oral pain medications. On postoperative day 2 she was starting to feel little better with pain control. Her creatinine had increased between postop day 1 and 2. She was drinking adequate amounts of liquids and was urinating without difficulty. She was kept in the hospital and monitored for 1 more day. On postop day 3 her creatinine had gone down slightly and she was still adequate urine. She was then discharged on 02/28/2023. Status at Discharge Functional status at discharge: independent ambulation Overall status at discharge: patient is progressing back to baseline Time Spent with Patient Time attestation: Total time spent providing and/or coordinating discharge services: Time spent: Less than 30 minutes Exam Resp: Effort & Inspection: normal respiratory effort Auscultation: clear to auscultation bilaterally Cardio: Rate: regular rate Rhythm: regular rhythm Heart sounds: S1 normal heart sound present and S2 normal heart sound present GI: Inspection: incision (Intact with jason) and other (MEIR with minimal serosanguineous output) GI Palp: Yes Soft to palpation, Yes Tenderness to palpation present (GI) (Incisional) and No Guarding due to palpation present (GI) Auscultation: normal bowel sounds DS: Data Data Completed and Pending Completed studies during hospitalization: Pending at discharge 02/25/23 13:24 Surgical [PTH] Routine Labs on day of discharge: Labs from last 24 hours 02/28/23 05:57 Sodium 137 Potassium 4.1 Chloride 104 Carbon Dioxide 28 Anion Gap 5 L BUN 35 H Creatinine 1.70 H Estim Creat Clear Calc 40 Estimated GFR 30 L Glucose 97 Calcium 9.1 Phosphorus 2.8 Albumin 3.2 L Discharge Plan Discharge Attending physician on discharge: Thad Garcia Discharging Clinician: Thad Garcia Patient Disposition: Home, Self-Care Activity: other - see discharge instructions Diet: regular Wound Care Instructions: other - see discharge instructions Discharge Instructions: DISCHARGE INSTRUCTION SHEET FOR HERNIA, GALLBLADDER AND APPENDIX SURGERIES DR. GONZALEZ
== END 2023-02-28 14:35 | disposition home or self-care (01) | DRG 354 ==
LOC: ANH3MEDSUR 18:32
PROVIDERS: Admitting Provider Surgery; PCP Family Medicine; Visit Provider Surgery
PROC: 0WQF0ZZ Repair Abdominal Wall, Open Approach (ICD-10-PCS; principal; 2023-02-25 12:00)
DX: K43.2 Incisional hernia without obstruction or gangrene (principal); N17.9 Acute kidney failure, unspecified; Z68.42 Body mass index [BMI] 45.0-49.9, adult; G47.33 Obstructive sleep apnea (adult) (pediatric); I12.9 Hypertensive chronic kidney disease with stage 1 through stage 4 chronic kidney disease, or unspecified chronic kidney disease; N18.9 Chronic kidney disease, unspecified; I48.0 Paroxysmal atrial fibrillation; R73.03 Prediabetes; M19.90 Unspecified osteoarthritis, unspecified site; E89.0 Postprocedural hypothyroidism; Z96.653 Presence of artificial knee joint, bilateral; E66.01 Morbid (severe) obesity due to excess calories; Z96.619 Presence of unspecified artificial shoulder joint; Z98.84 Bariatric surgery status; Z90.49 Acquired absence of other specified parts of digestive tract; Z87.891 Personal history of nicotine dependence
CPT/HCPCS: 36415; 80048; 80069; 85025; 85027; 88302; A9270; C1781; C9290; J0690; J1100; J1170; J1200; J1650; J1885; J2250; J2405; J2704; J3010; J7120

== ENCOUNTER 2023-05-30 08:41 | Outpatient (CLI) | payer BC, SELFPAY ==
--- NOTE | ~2023-05-30 | MM_ITS ---
EXAMINATION: MM screening anastasiia BI w esteban HISTORY: Screening mammogram TECHNIQUE: Craniocaudal and mediolateral oblique 3-D tomosynthesis images were obtained and synthetic 2-D images were generated. CAD analysis was submitted and interpreted. COMPARISON: 11/07/2021, 07/05/2020, 12/18/2017 BREAST PARENCHYMAL COMPOSITION: There are scattered areas of fibroglandular density. FINDINGS: Scattered benign-appearing calcifications are present. No suspicious mass, calcification, o r architectural distortion are identified in either breast to suggest malignancy. There has been no s uspicious interval change. IMPRESSION: 1. No mammographic evidence of malignancy. 2. Recommend routine screening mammography in one year. BI-RADS Category 2: Benign finding(s). Reviewed, dictated and finalized at location A. [facility]
== END 2023-05-30 08:42 | disposition home or self-care (01) ==
PROVIDERS: PCP Family Medicine; Visit Provider Physician Assistant
DX: Z12.31 Encounter for screening mammogram for malignant neoplasm of breast (principal)
CPT/HCPCS: 77063; 77067

== ENCOUNTER 2024-05-11 10:09 | Outpatient (CLI) | payer BC, SELFPAY ==
--- NOTE | ~2024-05-11 | XR_ITS ---
XR shoulder RT min 2V Ordering provider: Carlos Dawson MD History: . M25.511 - Pain in right shoulder . Comparison: None. FINDINGS: BONES: No acute fracture or dislocation. Fracture of the middle screw in the glenoid cavity area is n oted. JOINT SPACES: The acromioclavicular joint shows mild osteoarthritic changes.. Right shoulder arthropl asty. SOFT TISSUES: Normal. IMPRESSION: No acute osseous abnormality right shoulder. Fracture of the screw in the glenoid cavity area. Reviewed, dictated and finalized at location A.
== END 2024-05-11 10:10 | disposition home or self-care (01) ==
PROVIDERS: PCP Family Medicine; Visit Provider Orthopaedic Surgery
DX: M25.511 Pain in right shoulder (principal); Z96.611 Presence of right artificial shoulder joint
CPT/HCPCS: 73030

== ENCOUNTER 2024-05-11 10:13 | Outpatient (CLI) | payer BC, SELFPAY ==
--- NOTE | ~2024-05-11 | XR_ITS ---
3 VIEWS LUMBAR SPINE Ordering provider: Paulo Mujica MD History: . M54.50 - Low back pain, unspecified . Comparison: None. FINDINGS: VERTEBRAL BODIES: No visible fracture or subluxation. DISK SPACES: Narrowing of the disc L1-L2, L2-3, L3-L4, L4-L5 and L5-S1. Multilevel facet joint diseas e. SOFT TISSUES: Atherosclerotic changes of the aorta. IMPRESSION: No acute osseous abnormality lumbar spine. Multilevel degenerative disc disease.. Reviewed, dictated and finalized at location A.
== END 2024-05-11 10:14 | disposition home or self-care (01) ==
LOC: GOSHIMG 10:14
PROVIDERS: PCP Family Medicine; Visit Provider Family Medicine
DX: M51.369 Other intervertebral disc degeneration, lumbar region without mention of lumbar back pain or lower extremity pain (principal)
CPT/HCPCS: 72110

== ENCOUNTER 2024-07-03 13:58 | Outpatient (CLI) | payer BC, SELFPAY ==
--- NOTE | ~2024-07-03 | MM_ITS ---
EXAMINATION: MM screening anastasiia BI w esteban HISTORY: Screening TECHNIQUE: Craniocaudal and mediolateral oblique 3-D tomosynthesis images were obtained and synthetic 2-D images were generated. CAD analysis was submitted and interpreted. COMPARISON: Comparison to multiple prior studies sequentially, with oldest reviewed study dated 12/2017. BREAST PARENCHYMAL COMPOSITION: Not Dense: The breasts are almost entirely fatty. FINDINGS: There is no evidence of suspicious mass, calcification, or architectural distortion to sugg est malignancy in either breast. There has been no suspicious interval change. IMPRESSION: 1. No mammographic evidence of malignancy. 2. Recommend routine screening mammography in one year. BI-RADS Category 1: Negative Reviewed, dictated and finalized at location B. [employer]
== END 2024-07-03 13:59 | disposition home or self-care (01) ==
LOC: ANHIMG 14:00
PROVIDERS: PCP Family Medicine; Visit Provider Family Medicine
DX: Z12.31 Encounter for screening mammogram for malignant neoplasm of breast (principal)
CPT/HCPCS: 77063; 77067

== ENCOUNTER 2024-10-16 12:42 | Outpatient (CLI) | payer BC, SELFPAY ==
--- NOTE | ~2024-10-16 | CT_ITS ---
CT Scan of the Chest without Contrast: Clinical Indication: Pulmonary nodule Technique: Contiguous sections were acquired throughout the chest without intravenous contrast. Dose reduction technique was used on this scan by utilizing automated exposure control and iterative recon struction technique. The dose-length product (DLP) was 320.59 mGy-cm. COMPARISON: 01/25/2023 Findings: There is no evidence of any significant mediastinal, hilar or axillary lymphadenopathy. Coronary luis ry calcification present.. There is no evidence of pleural or pericardial effusion. There is stable linear scarring or atelectasis at the left lung base. No suspicious pulmonary nodule. Images through the upper abdomen reveal no abnormalities. There is DISH of the thoracic spine. Impression: No significant pulmonary nodule. Reviewed, dictated and finalized at location . Impression: No significant pulmonary nodule.
--- OUTSIDE RECORDS SUMMARY | 2024-10-16 12:48 | XMS_ITS | Clinical Summary ---
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 Gender Identity Not on file Sexual Orientation Not on file Plan of Treatment Health Maintenance Due Date Last Done Comments Cervical Cancer Screening Pa p Smear (Age 30 to 64) Every 3 Years 1960 Colorectal Cancer Screening Colonoscopy (10 Years) 1960 Annual Physical 1963 Hepatitis C 1978 DTaP, Tdap and Td Vaccines ( 1 - Tdap) 1979 Cervical Cancer Screening Pa p with HPV Testing (Age 30 to 64) Every 5 Years 1990 Cervical Cancer Screening with HPV 1990 Mammogram Screening 2000 Zoster Vaccines (1 of 2) 2010 COVID-19 Vaccine ( - 2023-2 5 season) 2024 RSV Immunization or 60+ Years (1 - 1-dose 75+ series) 2035 Meningococcal B Vaccine Aged Out No l onger eligible based on patient's age to complete this topic Meningococcal Vaccine Aged Out No pritesh juan eligible based on patient's age to complete this topic Pneumococcal Vaccine: Pediat rics (0 to 5 Years) and At-Risk Patients (6 to 64 Years) Aged Out No longer eligible b ased on patient's age to complete this topic RSV Immunizations Under 20 Months Aged Out No longer eligible based on patient's age to complete this topic Insurance [facility] Care Teams Education Managers Relationship Specialty Start Date End Date Paulo Mujica MD [address] [place] [id number] PCP - General FAMILY PRACTICE 12/24/19
--- OUTSIDE RECORDS SUMMARY | 2024-10-16 12:48 | XMS_ITS | Referral Summary ---
Author Organization [facility] [address] Address [address] [place] [address] Care Team Providers Care Food Safety Specialist Name Role Phone Paulo Mujica MD Primary Care Provider Encounters Date Type Department Care Team Description 09/18/2024 Documentation [facility] Nephrology [address] [facility] 5th [place] [address] Sirisha Bernard MD 09/18/2024 Orders Only [facility] Nephrology [address] [facility] 5th [place] [address] [place] [address] Sirisha Bernard MD VANDANA (acute kidney injury) (Primary Dx) 09/14/2024 2:55 PM CASH APPLICATIONS SPECIALIST Lab [facility] [address] [place] [phone] Stage 3b chronic kidney disease (HCC) 09/14/2024 10:38 AM CASH APPLICATIONS SPECIALIST - 09/14/2024 11:59 PM CASH APPLICATIONS SPECIALIST Hospital Encounter [facility] [address] [place] [phone] S/P reverse total shoulder arthroplasty, right Discharge Disposition: Discharge to home or self care 09/14/2024 10:40 AM CASH APPLICATIONS SPECIALIST Office Visit [facility] Orthopaedic Surgery [id number] [place] [address] 2nd Floor [address] [place] [phone] Jed Correa MD S/P reverse total shoulder arthroplasty, right (Primary Dx) 09/11/2024 Orders Only [facility] Nephrology [address] [facility] 5th [place] [address] [place] [address] Sirisha Bernard MD Stage 3b chronic kidney disease (HCC) (Primary Dx) 09/07/2024 2:43 PM CASH APPLICATIONS SPECIALIST - 09/07/2024 11:59 PM CASH APPLICATIONS SPECIALIST Hospital Encounter [address] [address] Stage 3 chronic kidney disease, unspecified whether stage 3a or 3b CKD (HCC) Discharge Disposition: Discharge to home or self care 09/07/2024 1:00 PM CASH APPLICATIONS SPECIALIST Office Visit [facility] Nephrology [facility] 5th [place] [address] [place] [phone] Stage 3 chronic kidney disease, unspecified whether stage 3a or 3b CKD (HCC) (Primary Dx); S/P reverse total shoulder arthroplasty, right; Proteinuria, unspecified type; Hypertension, unspecified type; Anemia in stage 3 chronic kidney disease, unspecified whether stage 3a or 3b CKD (HCC); Renal osteodystrophy 08/12/2024 11:35 AM CASH APPLICATIONS SPECIALIST - 08/12/2024 11:59 PM CASH APPLICATIONS SPECIALIST Hospital Encounter [address] [phone] S/P orthopedic surgery, follow-up exam Discharge Disposition: Discharge to home or self care 08/12/2024 11:30 AM CASH APPLICATIONS SPECIALIST Office Visit [facility] Orthopaedic Surgery [address] [place] [address] Medical Office Building [address] [place] [phone] Jed Correa MD S/P orthopedic surgery, follow-up exam (Primary Dx) 08/01/2024 Telephone [facility] [address] [facility] [address] [place] [address] Norbert Green MD 07/31/2024 Telephone [facility] Anesthesia 1 [place] [address] Tammy Ledbetter NP 07/30/2024 Telephone [facility] Anesthesia 1 [place] [address] Tammy Ledbetter NP 07/28/2024 10:36 AM CASH APPLICATIONS SPECIALIST - 07/29/2024 1:23 PM CASH APPLICATIONS SPECIALIST Hospital Encounter [facility] 1 [place] [address] Jed Correa MD S/P reverse total shoulder arthroplasty, right (Primary Dx); Acute postoperative pain of right shoulder [G89.18, M25.511] Discharge Disposition: Discharge to home or self care 07/28/2024 12:55 PM CASH APPLICATIONS SPECIALIST - 07/28/2024 4:05 PM CASH APPLICATIONS SPECIALIST Surgery [facility] Operating Room 1 [place] [address] Jed Correa MD REVISION ARTHROPLASTY REVERSE TOTAL SHOULDER 07/28/2024 1:38 PM CASH APPLICATIONS SPECIALIST Anesthesia Event [facility] Operating Room 1 [place] [address] Coral Hirsch MD Winter, Caleb Scott, NP 07/24/2024 Documentation [facility] Orthopaedic Surgery [address] [facility] 2nd Floor [address] [place] [phone] Kami Vasques RN 07/21/2024 9:30 AM CASH APPLICATIONS SPECIALIST Pre-Admission Testing [facility] Center for Preoperative Assessment and Planning [facility] ([facility]) [address] [place] [phone] Preoperative testing (Primary Dx); Failure of arthroplasty, subsequent encounter from Last 3 Months Allergies No known active allergies Medications lisinopriL (PRINIVIL,ZESTR IL) 40 mg tabletIndicatio ns:hypertension Take 1 tablet (40 mg total) by mouth every morning 2 Active cholecalciferol (VITAMIN D-3) 5,000 unit capsuleIndicati ons:supplement Take 1 capsule (5,000 Units total) by mouth every morning Active amLODIPine (NORVASC) 5 mg tablet Take 1 tablet by mouth once daily 90 tablet 4 Active levothyroxine (SYNTHROID) 125 mcg tabletIndicatio ns:hypothyroidi sm Take 1 tablet (125 mcg total) by mouth 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 before 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 4 Active docusate sodium (COLACE) 100 mg capsuleIndicati ons:constipatio n Take 1 capsule (100 mg total) by mouth 2 (two) times a day 60 capsule 5 Active acetaminophen 500 mg capsuleIndicati ons:Pain Take 2 capsules (1,000 mg total) by mouth every 6 (six) hours 90 tablet 5 Active Active Problems Problem Noted Date Diagnosed Date S/P reverse total shoulder arthroplasty, right 0 07/28/2024 Failed arthroplasty 07/13/2024 Sensorineural hearing loss (SNHL) of both ears 0 03/14/2023 Paroxysmal atrial fibrillation 01/04/2023 Hypertension 01/04/2023 Cerebrospinal fluid leak 11/19/2022 CSF leak from ear 09/07/2022 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 08/23/2022 Left chronic serous otitis media 08/07/2022 Dysfunction of left eustachian tube 07/28/2022 Otitis externa 07/10/2022 Osteoarthritis 06/12/2022 Pain in joint of left shoulder 04/09/2022 Immunizations Immunization Administration Dates Next Due Influenza, Quadrivalent, Barbara l Culture-based MDCK, Preservative Free, Antibiotic Free, Intramuscular 04/11/2022 Influenza, Quadrivalent, Spl it, Intramuscular 05/05/2019,05/14/2018,06/14/2017,07/31 Influenza, Quadrivalent, Spl it, Preservative Free, Intramuscular 05/17/2021,05/03/2020 Influenza, Trivalent, IM (MDV) 05/23/2022,2020 Influenza, Trivalent, Preser vative Free, Intramuscular 04/27/2020 Tdap 01/09/2021 Social History Tobacco Use Types Packs/Day Years Used Date Smoking Tobacco: Former Cigarettes 0.5 21 0 07/15/1977 - 1998 Passive Smoke Exposure: Never Smokeless Tobacco: Never Tobacco Cessation:Counseling Given: Not Answered AUDIT-C Answer Date Recorded Q1: How often do you have a drink containing alc ohol? 2-4 times a month 07/21/2024 Q2: How many drinks containi ng alcohol do you have on a typical day when you are drinking? 3 or 4 07/21/2024 Q3: How often do you have si x or more drinks on one occasion? Never 07/21/2024 Personal Safety Answer Date Recorded Have you ever been in or are you currently in a harmful physical or emotional relationship or is someone making you feel afraid or unsafe? Denies 07/28/2024 Comments Unknown Sex and Gender Information Value Date Recorded Sex Assigned at Not on file Legal Sex Female 2:14 AM CASH APPLICATIONS SPECIALIST Gender Identity Female 11/02/2022 12:36 PM CDT Sexual Orientation Straight 11/02/2022 12 :36 PM CDT Occupation Industry Job Start Date Job End Date Retired Not on file Not on file Not on file Last Filed Vital Signs Vital Sign Reading Time Taken Comments Blood Pressure 159/85 09/07/2024 1:06 PM CASH APPLICATIONS SPECIALIST Pulse 77 09/07/2024 1:06 PM CASH APPLICATIONS SPECIALIST Temperature 36.9 C (98.5 F) 09/07/2024 1:06 PM CASH APPLICATIONS SPECIALIST Respiratory Rate 16 07/29/2024 7:55 AM CASH APPLICATIONS SPECIALIST Oxygen Saturation 96% 07/29/2024 7:55 AM CASH APPLICATIONS SPECIALIST Inhaled Oxygen Concentration - - Weight 124.1 kg (273 lb 9.6 oz) 09/07/2024 1:06 PM CASH APPLICATIONS SPECIALIST Height 157.5 cm (5' 2 ) 09/07/2024 1:06 PM CASH APPLICATIONS SPECIALIST Body Mass Index 50.04 09/07/2024 1:06 PM CASH APPLICATIONS SPECIALIST Plan of Treatment Not on file Medical Devices Implanted Type Area Insole Tack Puller Hand Device Identifier Shelf Expiration Date Model / Serial / Lot Total Joint Bilateral : Knee Plate & Screws Left: Foot Total Joint Right: Shoulder [employer] Guest[employer]ots Ramila Duragen Plus 7x5in Resorbable Onlay Regeneration Cranium Graft Dp-1057 - [id number] Implanted:Qty: 1 on 11/19/2022 by Zach Carrasco MD at [facility] Integra YuMeciNewman Infinite Ramila [id number] DP-1057 / / [id number] Craniomaxillofaci al Guffey Neuro 3 1.5mm 4mm Self Drill Axial Stability Screw Bone Latex Free [id number] - [id number] Implanted:Qty: 9 on 11/19/2022 by Zach Carrasco MD at [facility] Left: Cranial Dinorah Craniomaxillofacial [id number] / / Christopher Craniomaxillofaci al Mesh Dynamic Gold 318q953g.6mm Std Crnmxf Ti [id number] - [id number] Implanted:Qty: 1 on 11/19/2022 by Zach Carrasco MD at [facility] Left: Cranial Christopher Craniomaxillofacial [id number] / / [email or web address] Aequalis Perform Reversed 5mm 38mm Peripheral Glenoid Screw Kva143 - [id number] Implanted:Qty: 1 on 07/28/2024 by Jed Correa MD at [facility] Right: Shoulder [employer] [id number] / / [email or web address] Aequalis Perform Reversed 5mm 18mm Peripheral Glenoid Screw Zky537 - [id number] Implanted:Qty: 1 on 07/28/2024 by Jed Correa MD at [facility] Right: Shoulder [employer] [id number] / / [employer] Tornier Aequalis Perform Od36 Mm Reverse Shoulder +2 Mm Inferior Offset Sphere Glenoid [id number] - [id number] - [id number] Implanted:Qty: 1 on 07/28/2024 by Jed Correa MD at [facility] Right: Shoulder [employer] 01/13/2029 [id number] / [id number] / [employer] R1 Reverse Shoulder System Humeral Spacer Implant (+12mm) Implanted:Qty: 1 on 07/28/2024 by Jed Correa MD at [facility] Right: Shoulder [employer] 11/07/2026 [facility]ly [id number] Description:Approve mariah timmons [facility] code used [employer] R1 Reverse Shoulder System Spacer Locking Screw Implant Implanted:Qty: 1 on 07/28/2024 by Jed Correa MD at [facility] Right: Shoulder [employer] 12/22/2026 [id number] Description:Approve custom c ase. Misc code used [employer] R1 Reverse Shoulder System Ring Sc Poly Insert Implant Size 36+4 Implanted:Qty: 1 on 07/28/2024 by Jed Correa MD at [facility] Right: Shoulder [employer] 03/04/2029 [id number] 0-002 / / [id number] Description:Approve custom c ase misc code used [facility] Od25 Mm Full Wedge Augment Shoulder 15 D Baseplate Glenoid [id number] - [id number] - [id number] Implanted:Qty: 1 on 07/28/2024 by Jed Correa MD at [facility] Right: Shoulder [facility] 06/10/2029 [id number] / [id number] / [facility] Post Press Fit Glenoid Threaded Long Aequalis Perform 15mm [id number] - [id number] - [id number] Implanted:Qty: 1 on 07/28/2024 by Jed Correa MD at [facility] Right: Shoulder [employer] 08/17/2028 [id number] / [id number] / [facility] Aequalis Perform Reversed 5mm 34mm Peripheral Glenoid Screw [id number] - [id number] Implanted:Qty: 2 on 07/28/2024 by Jed Correa MD at [facility] Right: Shoulder [facility] [id number] / / Procedures Procedure Name Priority Date/Time Associated Diagnosis Comments EGFR Routine 09/14/2024 12:38 PM CASH APPLICATIONS SPECIALIST Stage 3b chronic kidney disease (HCC) DIFFERENTIAL AUTO Routine 09/14/2024 12:38 PM CASH APPLICATIONS SPECIALIST Stage 3b chronic kidney disease (HCC) RENAL FUNCTION PANEL Routine 09/14/2024 12:38 PM CASH APPLICATIONS SPECIALIST Stage 3b chronic kidney disease (HCC) CYSTATIN C Routine 09/14/2024 12:38 PM CASH APPLICATIONS SPECIALIST Stage 3b chronic kidney disease (HCC) PROTEIN ELECTROPHORESIS, WITH REFLEX, SERUM Routine 09/14/2024 12:38 PM CASH APPLICATIONS SPECIALIST Stage 3b chronic kidney disease (HCC) IMMUNOGLOBULIN FREE LIGHT CHAINS Routine 09/14/2024 12:38 PM CASH APPLICATIONS SPECIALIST Stage 3b chronic kidney disease (HCC) JONES SCREEN W/REFLEX CAROLE+DSDNA Routine 09/14/2024 12:38 PM CASH APPLICATIONS SPECIALIST Stage 3b chronic kidney disease (HCC) C3 COMPLEMENT Routine 09/14/2024 12:38 PM CASH APPLICATIONS SPECIALIST Stage 3b chronic kidney disease (HCC) C4 COMPLEMENT Routine 09/14/2024 12:38 PM CASH APPLICATIONS SPECIALIST Stage 3b chronic kidney disease (HCC) CBC WITH AUTO DIFFERENTIAL Routine 09/14/2024 12:38 PM CASH APPLICATIONS SPECIALIST Stage 3b chronic kidney disease (HCC) IRON PROFILE W/ IBC Routine 09/14/2024 12:38 PM CASH APPLICATIONS SPECIALIST Stage 3b chronic kidney disease (HCC) FERRITIN Routine 09/14/2024 12:38 PM CASH APPLICATIONS SPECIALIST Stage 3b chronic kidney disease (HCC) HIV 1/2 ANTIBODY PLUS P24 ANTIGEN Routine 09/14/2024 12:38 PM CASH APPLICATIONS SPECIALIST Stage 3b chronic kidney disease (HCC) HEPATITIS C ANTIBODY Routine 09/14/2024 12:38 PM CASH APPLICATIONS SPECIALIST Stage 3b chronic kidney disease (HCC) HEPATITIS B SURFACE ANTIBODY (IMMUNE STATUS) Routine 09/14/2024 12:38 PM CASH APPLICATIONS SPECIALIST Stage 3b chronic kidney disease (HCC) HEPATITIS B SURFACE ANTIGEN Routine 09/14/2024 12:38 PM CASH APPLICATIONS SPECIALIST Stage 3b chronic kidney disease (HCC) HEPATITIS B CORE ANTIBODY, TOTAL Routine 09/14/2024 12:38 PM CASH APPLICATIONS SPECIALIST Stage 3b chronic kidney disease (HCC) XR SHOULDER RIGHT 2 OR MORE VIEWS Schedule Routine, Read Routine (OP Routine) 09/14/2024 10:47 AM CASH APPLICATIONS SPECIALIST S/P reverse total shoulder arthroplasty, right PROTEIN / CREATININE RATIO, URINE, RANDOM Routine 09/07/2024 2:43 PM CASH APPLICATIONS SPECIALIST Stage 3 chronic kidney disease, unspecified whether stage 3a or 3b CKD (HCC) ALBUMIN CREATININE RATIO, URINE Routine 09/07/2024 2:43 PM CASH APPLICATIONS SPECIALIST Stage 3 chronic kidney disease, unspecified whether stage 3a or 3b CKD (HCC) POCT URINALYSIS DIPSTICK Routine 09/07/2024 1:54 PM CASH APPLICATIONS SPECIALIST S/P reverse total shoulder arthroplasty, right Stage 3 chronic kidney disease, unspecified whether stage 3a or 3b CKD (HCC) XR SHOULDER RIGHT 2 OR MORE VIEWS Schedule Routine, Read Routine (OP Routine) 08/12/2024 11:45 AM CASH APPLICATIONS SPECIALIST S/P orthopedic surgery, follow-up exam EGFR Routine 07/29/2024 9:54 AM CASH APPLICATIONS SPECIALIST BASIC METABOLIC PANEL Routine 07/29/2024 9:54 AM CASH APPLICATIONS SPECIALIST EGFR Timed 07/29/2024 5:34 AM CASH APPLICATIONS SPECIALIST BASIC METABOLIC PANEL Timed 07/29/2024 5:34 AM CASH APPLICATIONS SPECIALIST HEMOGLOBIN AND HEMATOCRIT Timed 07/29/2024 5:34 AM CASH APPLICATIONS SPECIALIST XR SHOULDER RIGHT 2 OR MORE VIEWS IP Routine 07/28/2024 6:07 PM CASH APPLICATIONS SPECIALIST MYCOLOGY (FUNGAL) CULTURE AND STAIN Routine 07/28/2024 4:19 PM CASH APPLICATIONS SPECIALIST MYCOBACTERIOLOGY AFB CULTURE AND ACID-FAST STAIN Routine 07/28/2024 4:19 PM CASH APPLICATIONS SPECIALIST TISSUE AEROBIC AND ANAEROBIC CULTURE AND GRAM STAIN Routine 07/28/2024 4:19 PM CASH APPLICATIONS SPECIALIST MYCOLOGY (FUNGAL) CULTURE AND STAIN Routine 07/28/2024 4:18 PM CASH APPLICATIONS SPECIALIST MYCOBACTERIOLOGY AFB CULTURE AND ACID-FAST STAIN Routine 07/28/2024 4:18 PM CASH APPLICATIONS SPECIALIST TISSUE AEROBIC AND ANAEROBIC CULTURE AND GRAM STAIN Routine 07/28/2024 4:18 PM CASH APPLICATIONS SPECIALIST MYCOBACTERIOLOGY AFB CULTURE AND ACID-FAST STAIN Routine 07/28/2024 4:18 PM CASH APPLICATIONS SPECIALIST MYCOLOGY (FUNGAL) CULTURE AND STAIN Routine 07/28/2024 4:18 PM CASH APPLICATIONS SPECIALIST TISSUE AEROBIC AND ANAEROBIC CULTURE AND GRAM STAIN Routine 07/28/2024 4:18 PM CASH APPLICATIONS SPECIALIST MYCOLOGY (FUNGAL) CULTURE AND STAIN Routine 07/28/2024 4:17 PM CASH APPLICATIONS SPECIALIST MYCOBACTERIOLOGY AFB CULTURE AND ACID-FAST STAIN Routine 07/28/2024 4:17 PM CASH APPLICATIONS SPECIALIST TISSUE AEROBIC AND ANAEROBIC CULTURE AND GRAM STAIN Routine 07/28/2024 4:17 PM CASH APPLICATIONS SPECIALIST MYCOLOGY (FUNGAL) CULTURE AND STAIN Routine 07/28/2024 4:15 PM CASH APPLICATIONS SPECIALIST MYCOBACTERIOLOGY AFB CULTURE AND ACID-FAST STAIN Routine 07/28/2024 4:15 PM CASH APPLICATIONS SPECIALIST TISSUE AEROBIC AND ANAEROBIC CULTURE AND GRAM STAIN Routine 07/28/2024 4:15 [address] CASH [address] AN PROCEDURE PLACEHOLDER Routine 07/28/2024 2:43 PM CASH APPLICATIONS SPECIALIST [address] AN ELECTIVE ENDOTRACHEAL AIRWAY Routine 07/28/2024 2:43 PM CASH APPLICATIONS SPECIALIST CT AN PROCEDURE PLACEHOLDER Routine 07/28/2024 1:53 PM CASH APPLICATIONS SPECIALIST CT AN PROCEDURE PLACEHOLDER Routine 07/28/2024 1:52 PM CASH APPLICATIONS SPECIALIST BW IP ANE LDA PERIPHERAL NERVE CATHETER Routine 07/28/2024 1:52 PM CASH APPLICATIONS SPECIALIST REMOVAL HARDWARE SHOULDER 07/28/2024 1:38 PM CASH APPLICATIONS SPECIALIST Failure of arthroplasty, subsequent encounter REVISION ARTHROPLASTY REVERSE TOTAL SHOULDER 07/28/2024 1:38 PM CASH APPLICATIONS SPECIALIST Failure of arthroplasty, subsequent encounter EGFR Routine 07/21/2024 10:29 AM CASH APPLICATIONS SPECIALIST Failure of arthroplasty, subsequent encounter DIFFERENTIAL AUTO Routine 07/21/2024 10:29 AM CASH APPLICATIONS SPECIALIST Preoperative testing CBC WITH AUTO DIFFERENTIAL Routine 07/21/2024 10:29 AM CASH APPLICATIONS SPECIALIST Preoperative testing TYPE AND SCREEN 14 DAY Routine 10:29 AM CASH APPLICATIONS SPECIALIST Preoperative testing COMPREHENSIVE METABOLIC PANEL Routine 07/21/2024 10:29 AM CASH APPLICATIONS SPECIALIST Failure of arthroplasty, subsequent encounter from Last 3 Months Results * JONES screen w/rflx CAROLE+dsDNA (09/14/2024 12:38 PM CASH APPLICATIONS SPECIALIST) JONES Negative Comment: Interpretive Data Normal range for JONES Qualitative Antibody = Negative. 1. JONES is performed using indirect immunofluorescence against HEp-2 cells 2. JONES titers are performed on all positive qualitative results. 3. A significantly positive JONES result is defined as a positive nuclear fluorescence at a titer of 1:80 or greater. 4. 15% of normal people above age 65 have significantly positive JONES results. 5% or less of normal people age 65 or under have significantly positive JONES results. Current interpretive data was last revised on 2020. Blood 09/14/2024 12:3 8 PM CASH APPLICATIONS SPECIALIST 09/14/2024 1:01 PM CASH APPLICATIONS SPECIALIST us Sirisha Bernard MD LAB BLOOD ORDERABLES Fin al Result [facility] [place] [address] * (ABNORMAL) eGFR (09/14/2024 12:38 PM CASH APPLICATIONS SPECIALIST) eGFR 30(L) >=60 mL/min/1. 73 m2 Comment: Interpretive Data Reference Interval Normal >/= 90 mL/min/1.73m2 Mildly decreased* 60 - 89 mL/min/1.73m2 Mildly to moderately decreased 45 - 59 mL/min/1.73m2 Moderately to severely decreased 30 - 44 mL/min/1.73m2 Severely decreased 15 - 29 mL/min/1.73m2 Kidney Failure < 15 mL/min/1.73m2 *Relative to young adult level Estimated glomerular filtration rate is determined by the 2020 CKD-EPI equation recommended by the National Kidney Foundation (A Unifying Approach to GFR Estimation: Recommendations of the NKF-ASK Task Force on Reassessing the Inclusion of Race in Diagnosing Kidney Disease, JASN 2020). The CKD-EPI equation should not be used for patients with unstable renal function and has not been validated in children and those over 70. Current interpretive data was last reviewed 2021. Blood 09/14/2024 12:3 8 PM CASH APPLICATIONS SPECIALIST 09/14/2024 1:09 PM CASH APPLICATIONS SPECIALIST us Sirisha Bernard MD LAB BLOOD ORDERABLES Fin al Result [facility] [place] [address] * Differential, auto (09/14/2024 12:38 PM CASH APPLICATIONS SPECIALIST) [facility] Neutrophil abs 3.1 1.5 - 6.5 K/cumm Imm gran abs 0.0 0.0 - 0.1 K/cumm [facility] Lymphocyte abs 1.7 0.8 - 3.3 K/cumm [facility] Monocyte abs 0.7 0.2 - 0.8 K/cumm [facility] Eosinophil abs 0.2 0.0 - 0.5 K/cumm [facility] Basophil abs 0.0 0.0 - 0.1 K/cumm [facility] Neutrophil pct 54.4 % [facility] Comment: Interpretive Data Percent cell count reference ranges are not reported, since discordance with absolute values may lead to misinterpretation of CBC data. Current Interpretive Data was last revised on 2017. Imm gran pct 0.4 % [facility] Comment: Interpretive Data Percent cell count reference ranges are not reported, since discordance with absolute values may lead to misinterpretation of CBC data. Current Interpretive Data was last revised on 2017. Lymphocyte pct 29.3 % [facility] Comment: Interpretive Data Percent cell count reference ranges are not reported, since discordance with absolute values may lead to misinterpretation of CBC data. Current Interpretive Data was last revised on 2017. Monocyte pct 11.5 % [facility] Comment: Interpretive Data Percent cell count reference ranges are not reported, since discordance with absolute values may lead to misinterpretation of CBC data. Current Interpretive Data was last revised on 2017. Eosinophil pct 3.7 % [facility] Comment: Interpretive Data Percent cell count reference ranges are not reported, since discordance with absolute values may lead to misinterpretation of CBC data. Current Interpretive Data was last revised on 2017. Basophil pct 0.7 % [facility] Comment: Interpretive Data Percent cell count reference ranges are not reported, since discordance with absolute values may lead to misinterpretation of CBC data. Current Interpretive Data was last revised on 2017. Blood 09/14/2024 12:3 8 PM CASH APPLICATIONS SPECIALIST 09/14/2024 1:01 PM CASH APPLICATIONS SPECIALIST Sirisha Bernard MD LAB BLOOD ORDERABLES Fin al Result Performing Organization Address [facility] Co de Phone Number [facility] [place] [address] * C4 complement (09/14/2024 12:38 PM CASH APPLICATIONS SPECIALIST) Complement C4 25.3 10.0 - 40.0 mg/dL Blood 09/14/2024 12:3 8 PM CASH APPLICATIONS SPECIALIST 09/14/2024 1:01 PM CASH APPLICATIONS SPECIALIST Sirisha Bernard MD LAB BLOOD ORDERABLES Fin al Result Performing Organization Address [facility]/ZIP Co de Phone Number [facility] [place] [address] * (ABNORMAL) Immunoglobulin free light chains (09/14/2024 12:38 PM CASH APPLICATIONS SPECIALIST) Pathologist [facility] [place]/Lambda ratio [facility] 1.48 0.26 - 1.65 Comment: Interpretive Data The Binding Site FreeLite assay procedure was used. Results from different manufacturers or methods may not be comparable. Serial testing should be performed using the same methods and instrumentation. Current Interpretive Data was last revised on 2023. [place] free light chain [facility] 7.23(H) 0.33 - 1.94 mg/dL [facility] Comment: Interpretive Data The Binding Site FreeLite assay procedure was used. Results from different manufacturers or methods may not be comparable. Serial testing should be performed using the same methods and instrumentation. Current Interpretive Data was last revised on 2023. Lambda free light chain [facility] 4.87(H) 0.57 - 2.63 mg/dL [facility] Comment: Interpretive Data The Binding Site FreeLite assay procedure was used. Results from different manufacturers or methods may not be comparable. Serial testing should be performed using the same methods and instrumentation. Current Interpretive Data was last revised on 2023. Blood 09/14/2024 12:3 8 PM CASH APPLICATIONS SPECIALIST 09/14/2024 1:01 PM CASH APPLICATIONS SPECIALIST Sirisha Bernard MD LAB BLOOD ORDERABLES Fin al Result Performing Organization Address City/[facility]/ZIP Co de Phone Number [facility] [place] [address] * (ABNORMAL) Iron profile w/ IBC (09/14/2024 12:38 PM CASH APPLICATIONS SPECIALIST) [facility] Iron 111 35 - 145 mcg/dL TIBC 241(L) 250 - 400 mcg/dL [facility] Transferrin saturation 46 20 - 50 % [facility] Blood 09/14/2024 12:3 8 PM CASH APPLICATIONS SPECIALIST 09/14/2024 1:01 PM CASH APPLICATIONS SPECIALIST Sirisha Bernard MD LAB BLOOD ORDERABLES Fin al Result Performing Organization Address [facility] de Phone Number [facility] [place] [address] * HIV 1/2 Antibody plus p24 Antigen Blood (09/14/2024 12:38 PM CASH APPLICATIONS SPECIALIST) Pathologist [facility] [place] HIV 1/2 ab + p24 ag Nonreactive Nonreactive Comment:Nonreactive for HIV- 1 antigen and HIV-1/HIV-2 antibodies. No laboratory evidence of HIV infection. If acute HIV infection is suspected, consider testing for HIV-1 RNA. Current interpretive data was last revised on 22. Blood 09/14/2024 12:3 8 PM CASH APPLICATIONS SPECIALIST 09/14/2024 1:01 PM CASH APPLICATIONS SPECIALIST Sirisha Bernard MD LAB MICROBIOLOGY - GENER AL ORDERABLES Final Result Performing Organization Address [facility] Phone Number [facility] [place] [address] * (ABNORMAL) Cystatin C (09/14/2024 12:38 PM CASH APPLICATIONS SPECIALIST) [facility] Cystatin C 2.33(H) 0.60 - 1.20 mg/L Comment: Interpretive Data Cystatin C concentrations vary widely in the first month of life, particularly in pre-term infants. Concentrations gradually diminish to adult levels by 1 year of life. Concentrations tend to rise with diminishing renal function in individuals greater than 60 years of age. Current Interpretive Data was last revised on 2020. Testing performed by: [facility], [facility], [place]., [address] Blood 09/14/2024 12:3 8 PM CASH APPLICATIONS SPECIALIST 09/14/2024 2:52 PM CASH APPLICATIONS SPECIALIST Sirisha Bernard MD LAB BLOOD ORDERABLES Fin al Result Performing Organization Address [facility]/ZIP Co de Phone Number [facility] [place] [address] * (ABNORMAL) CBC with auto differential (09/14/2024 12:38 PM CASH APPLICATIONS SPECIALIST) [facility] WBC 5.7 3.8 - 9.9 K/cumm Hgb 11.5(L) 11.9 - 15.5 g/dL [facility] Hct 34.9(L) 35.6 - 45.5 % [facility] Plt 241 150 - 400 K/cumm [facility] MPV 9.7 9.1 - 12.3 fL [facility] RBC 3.68(L) 3.90 - 5.20 M/cumm [facility] MCV 94.8 81.3 - 96.4 fL [facility] MCH 31.3 27.1 - 33.3 pg [facility] MCHC 33.0 32.3 - 35.7 g/dL [facility] RDW CV 13.6 11.1 - 14.9 % [facility] RDW SD 47.8 35.7 - 48.1 fL [facility] NRBC abs 0.00 0.00 - 0.01 K/cumm [facility] Blood 09/14/2024 12:3 8 PM CASH APPLICATIONS SPECIALIST 09/14/2024 1:01 PM CASH APPLICATIONS SPECIALIST Sirisha Bernard MD LAB BLOOD ORDERABLES Fin al Result Performing Organization Address [facility] Co de Phone Number [facility] [place] [address] * Hepatitis C antibody Blood (09/14/2024 12:38 PM CASH APPLICATIONS SPECIALIST) [facility] Hep C Ab Nonreactive Nonreactive Comment:Antibodies to HCV no t detected. Does NOT exclude the possibility of recent exposure to HCV. Current interpretive data was last revised on 22 Blood 09/14/2024 12:3 8 PM CASH APPLICATIONS SPECIALIST 09/14/2024 1:01 PM CASH APPLICATIONS SPECIALIST us Sirisha Bernard MD LAB MICROBIOLOGY - GENER AL ORDERABLES Final Result Performing Organization Address City/[facility]/ZIP Co de Phone Number [facility] [place] [address] * Hepatitis B core antibody, total Blood (09/14/2024 12:38 PM CASH APPLICATIONS SPECIALIST) Hep B core IgG/IgM Nonreactive Nonreactive Blood 09/14/2024 12:3 8 PM CASH APPLICATIONS SPECIALIST 09/14/2024 1:01 PM CASH APPLICATIONS SPECIALIST us Sirisha Bernard MD LAB MICROBIOLOGY - GENER AL ORDERABLES Final Result Performing Organization Address [facility] Co de Phone Number [facility] [place] [address] * Hepatitis B surface antibody (immune status) Blood (09/14/2024 12:38 PM CASH APPLICATIONS SPECIALIST) HBsAb (immune status) Nonreactive Comment:This result is consi stent with a lack of immunity to Hepatitis B Virus when used in the setting of routine screening. Current interpretative data was last revised on 22 Blood 09/14/2024 12:3 8 PM CASH APPLICATIONS SPECIALIST 09/14/2024 1:01 PM CASH APPLICATIONS SPECIALIST us Sirisha Bernard MD LAB MICROBIOLOGY - GENER AL ORDERABLES Final Result Performing Organization Address City/[facility] Co [facility] [place] [address] * Hepatitis B Surface Antigen Blood (09/14/2024 12:38 PM CASH APPLICATIONS SPECIALIST) HepBsAg Nonreactive Nonreactive Blood 09/14/2024 12:3 8 PM CASH APPLICATIONS SPECIALIST 09/14/2024 1:01 PM CASH APPLICATIONS SPECIALIST us Sirisha Bernard MD LAB MICROBIOLOGY - GENER AL ORDERABLES Final Result Performing Organization Address [facility] Co de Phone Number [facility] [place] [address] * C3 complement (09/14/2024 12:38 PM CASH APPLICATIONS SPECIALIST) Pathologist [facility] [place] Complement C3 164.0 90.0 - 180.0 mg/dL Blood 09/14/2024 12:3 8 PM CASH APPLICATIONS SPECIALIST 09/14/2024 1:01 PM CASH APPLICATIONS SPECIALIST Sirisha Bernard MD LAB BLOOD ORDERABLES Fin al Result Performing Organization Address [facility] de Phone Number [facility] [place] [address] * Protein electrophoresis with reflex, serum with interpretation (09/14/2024 12:38 PM CASH APPLICATIONS SPECIALIST) Pathologist [facility] [place] Protein, sr 7.2 6.2 - 8.2 g/dL Albumin 4.1 3.2 - 5.0 g/dL [facility] Alpha-1 globulin 0.3 0.2 - 0.4 g/dL [facility] Alpha-2 globulin 0.8 0.5 - 1.0 g/dL [facility] Beta-1 globulin 0.4 0.3 - 0.6 g/dL [facility] Beta-2 globulin 0.5 0.2 - 0.6 g/dL [facility] Gamma globulin 1.1 0.5 - 1.7 g/dL [facility] SPEP interp Please see comment [facility] Comment: No apparent monoclonal peak Reviewed and signed by Serena Styles MD, PhD 09/15/2024 Blood 09/14/2024 12:3 8 PM CASH APPLICATIONS SPECIALIST 09/14/2024 1:01 PM CASH APPLICATIONS SPECIALIST us Sirisha Bernard MD LAB BLOOD ORDERABLES Fin al Result Performing Organization Address City/[facility] Co de Phone Number [facility] [place] [address] * Ferritin (09/14/2024 12:38 PM CASH APPLICATIONS SPECIALIST) Ferritin 48 13 - 150 ng/mL Blood 09/14/2024 12:3 8 PM CASH APPLICATIONS SPECIALIST 09/14/2024 1:01 PM CASH APPLICATIONS SPECIALIST us Sirisha Bernard MD LAB BLOOD ORDERABLES Fin al Result [facility] [place] [address] * (ABNORMAL) Renal function panel (09/14/2024 12:38 PM CASH APPLICATIONS SPECIALIST) Pathologist [facility] [place] Sodium 141 135 - 145 mmol/L Potassium, pl 4.6 3.3 - 4.9 mmol/L [facility] Chloride 106 97 - 110 mmol/L [facility] CO2 24 22 - 32 mmol/L [facility] Anion gap 11 2 - 15 mmol/L [facility] BUN 32(H) 6 - 25 mg/dL [facility] Creatinine 1.84(H) 0.60 - 1.10 mg/dL [facility] Glucose 81 70 - 199 mg/dL [facility] Comment: Interpretive Data Fasting glucose >/= 126 mg/dl is diagnostic for diabetes. Fasting is defined as no caloric intake for at least 8 hours. Fasting glucose between 100 mg/dl to 125 mg/dl is diagnostic of prediabetes. In a patient with classic symptoms of hyperglycemia or hyperglycemic crisis, a random glucose >/= 200 mg/dl is diagnostic for diabetes. In the absence of unequivocal hyperglycemia, results should be confirmed by repeat testing. The classification and Diagnosis of Diabetes Diabetes Care 2021; 46: S19-S40. Current interpretive data was last revised 2022. Calcium 10.6(H) 8.5 - 10.3 mg/dL [facility] Phosphorus, pl 2.7 2.3 - 4.5 mg/dL [facility] Albumin 4.2 3.5 - 5.0 g/dL [facility] Blood 09/14/2024 12:3 8 PM CASH APPLICATIONS SPECIALIST 09/14/2024 1:01 PM CASH APPLICATIONS SPECIALIST us Sirisha Bernard MD LAB BLOOD ORDERABLES Fin al Result [facility] [place] [address] * XR Shoulder Right 2+ View (09/14/2024 10:47 AM CASH APPLICATIONS SPECIALIST) Anatomical Region Laterality Modality Upper Extremities, Shoulder Right Comp uted Radiography 09/14/2024 3:05 PM CASH APPLICATIONS SPECIALIST Impressions 09/14/2024 6:19 PM CASH APPLICATIONS SPECIALIST 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 Dictated by: George Marquez MD PHD The radiology attending physician has personally reviewed this study, and had reviewed and/or edited this written report and agrees with it. Electronically signed by: Keisha Larios MD Narrative 09/14/2024 6:19 PM CASH APPLICATIONS SPECIALIST EXAMINATION: XR SHOULDER RIGHT 2+ VIEWS HISTORY: 64-year-old with right reverse total shoulder arthroplasty. FINDINGS: 4 views of the right shoulder are submitted for interpretation. Comparison is made to plain radiograph(s) dated 08/12/2024. Redemonstrated right reverse total shoulder arthroplasty with slight varus angulation of the humeral stem, otherwise in expected position and alignment. No periprosthetic fracture or lucency. Moderate acromioclavicular osteoarthritis. Heterotopic ossification is noted within the joint space. Procedure Note Jennifer Larios MD - 09/14/2024 EXAMINATION: XR SHOULDER RIGHT 2+ VIEWS HISTORY: 64-year-old with right reverse total shoulder arthroplasty. FINDINGS: 4 views of the right shoulder are submitted for interpretation. Comparison is made to plain radiograph(s) dated 08/12/2024. Redemonstrated right reverse total shoulder arthroplasty with slight varus angulation of the humeral stem, otherwise in expected position and alignment. No periprosthetic fracture or lucency. Moderate acromioclavicular osteoarthritis. Heterotopic ossification is noted within the joint space. IMPRESSION: 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 Dictated by: George Marquez MD PHD The radiology attending physician has personally reviewed this study, and had reviewed and/or edited this written report and agrees with it. Electronically signed by: Keisha Larios MD us Jed Correa MD IMG XR PROCEDURES Final Result * (ABNORMAL) Protein / creatinine ratio, urine, random (09/07/2024 2:43 PM CASH APPLICATIONS SPECIALIST) Protein, ur, quant 206.8 mg/dL Comment: Interpretive Data No reference range established. Current interpretive data was last revised 2018. Creatinine Ur 88.8 mg/dL [facility] Comment: Interpretive Data No reference range established. Current interpretive data was last revised 2018. Protein/creatinin e ratio 2,292.7(H ) 0.0 - 180.0 mg/g CR [facility] Urine 09/07/2024 2:43 PM CASH APPLICATIONS SPECIALIST 09/07/2024 4:28 PM CASH APPLICATIONS SPECIALIST us Sirisha Bernard MD LAB URINE ORDERABLES Fin al Result [facility] [place] [address] * (ABNORMAL) Albumin Creatinine Ratio, Urine (09/07/2024 2:43 PM CASH APPLICATIONS SPECIALIST) Pathologist [facility] [place] Albumin Ur 1,552.8 mg/L Comment: Interpretive Data No reference range established. Current interpretive data was last revised 2018. Creatinine Ur 88.8 mg/dL [facility] Comment: Interpretive Data No reference range established. Current interpretive data was last revised 2018. Albumin Creatinine Ratio, Ur 1,749(H) 1 - 29 mg/g [facility] Urine 09/07/2024 2:43 PM CASH APPLICATIONS SPECIALIST 09/07/2024 4:28 PM CASH APPLICATIONS SPECIALIST Sirisha Bernard MD LAB URINE ORDERABLES Fin al Result [facility] [place] [address] * (ABNORMAL) POCT urinalysis dipstick (09/07/2024 1:54 PM CASH APPLICATIONS SPECIALIST) Glucose, ur, POC Negative Negative MG/DL Bilirubin, ur, POC Negative Negative, Small, Moderate, Large Ketones, ur, POC Negative Negative Specific [place], POC 1.030 1.003 - 1.030 Comment:>= Blood, ur, POC Non-hemolyze d, trace(A) Negative pH, ur, POC 6.0 5.0 - 8.0 Protein, ur, POC 3+(A) Negative Urobilinogen, urine, POC 0.2 0.2 - 1.0 mg/dL Nitrite, ur, POC Negative Negative Leukocytes, ur, POC Trace(A) Negative Lot Number [id number] Urine 09/07/2024 1:54 PM CASH APPLICATIONS SPECIALIST Tim Malik MD POINT OF CARE TEST ORDERABLES Final Result * XR Shoulder Right 2+ View (08/12/2024 11:45 AM CASH APPLICATIONS SPECIALIST) Anatomical Region Laterality Modality Upper Extremities, Shoulder Right Digi chepe Radiography 08/12/2024 3:31 PM CASH APPLICATIONS SPECIALIST Narrative 08/12/2024 3:31 PM CASH APPLICATIONS SPECIALIST EXAMINATION: XR SHOULDER RIGHT 2 OR MORE VIEWS DATE: 08/12/2024 11:45 AM HISTORY: Right revision reverse total shoulder arthroplasty COMPARISON: 07/28/2024. FINDINGS: Post revision of reverse right glenohumeral arthroplasty in near anatomic alignment. No acute fracture or evidence of hardware failure. Heterotopic superior soft tissue ossifications. Electronically signed by: Andrew Mckeon M.D. Procedure Note Andrew Mckeon MD - 08/12/2024 EXAMINATION: XR SHOULDER RIGHT 2 OR MORE VIEWS DATE: 08/12/2024 11:45 AM HISTORY: Right revision reverse total shoulder arthroplasty COMPARISON: 07/28/2024. FINDINGS: Post revision of reverse right glenohumeral arthroplasty in near anatomic alignment. No acute fracture or evidence of hardware failure. Heterotopic superior soft tissue ossifications. Electronically signed by: Andrew Mckeon M.D. us Jed Correa MD IMG XR PROCEDURES Final Result * (ABNORMAL) eGFR (07/29/2024 9:54 AM CASH APPLICATIONS SPECIALIST) eGFR 37(L) >=60 mL/min/1. 73 m2 Comment: Interpretive Data Reference Interval Normal >/= 90 mL/min/1.73m2 Mildly decreased* 60 - 89 mL/min/1.73m2 Mildly to moderately decreased 45 - 59 mL/min/1.73m2 Moderately to severely decreased 30 - 44 mL/min/1.73m2 Severely decreased 15 - 29 mL/min/1.73m2 Kidney Failure < 15 mL/min/1.73m2 *Relative to young adult level Estimated glomerular filtration rate is determined by the 2020 CKD-EPI equation recommended by the National Kidney Foundation (A Unifying Approach to GFR Estimation: Recommendations of the NKF-ASK Task Force on Reassessing the Inclusion of Race in Diagnosing Kidney Disease, JASN 2020). The CKD-EPI equation should not be used for patients with unstable renal function and has not been validated in children and those over 70. Current interpretive data was last reviewed 2021. Blood 07/29/2024 9:54 AM CASH APPLICATIONS SPECIALIST 07/29/2024 10:01 AM CASH APPLICATIONS SPECIALIST us Mattie Huber NP LAB BLOOD ORDERABLES Final Result [facility] [place] [address] * (ABNORMAL) Basic metabolic panel (07/29/2024 9:54 AM CASH APPLICATIONS SPECIALIST) Sodium 138 135 - 145 mmol/L Potassium, pl 4.6 3.3 - 4.9 mmol/L [facility] Chloride 106 97 - 110 mmol/L [facility] CO2 20(L) 22 - 32 mmol/L [facility] Anion gap 12 2 - 15 mmol/L [facility] BUN 30(H) 6 - 25 mg/dL [facility] Creatinine 1.57(H) 0.60 - 1.10 mg/dL [facility] Glucose 136 70 - 199 mg/dL [facility] Comment: Interpretive Data Fasting glucose >/= 126 mg/dl is diagnostic for diabetes. Fasting is defined as no caloric intake for at least 8 hours. Fasting glucose between 100 mg/dl to 125 mg/dl is diagnostic of prediabetes. In a patient with classic symptoms of hyperglycemia or hyperglycemic crisis, a random glucose >/= 200 mg/dl is diagnostic for diabetes. In the absence of unequivocal hyperglycemia, results should be confirmed by repeat testing. The classification and Diagnosis of Diabetes Diabetes Care 2021; 46: S19-S40. Current interpretive data was last revised 2022. Calcium 9.3 8.5 - 10.3 mg/dL [facility] Blood 07/29/2024 9:54 AM CASH APPLICATIONS SPECIALIST 07/29/2024 10:01 AM CASH APPLICATIONS SPECIALIST us Mattie Huber NP LAB BLOOD ORDERABLES Final Result [facility] [place] [address] * (ABNORMAL) eGFR (07/29/2024 5:34 AM CASH APPLICATIONS SPECIALIST) eGFR 36(L) >=60 mL/min/1. 73 m2 Comment: Interpretive Data Reference Interval Normal >/= 90 mL/min/1.73m2 Mildly decreased* 60 - 89 mL/min/1.73m2 Mildly to moderately decreased 45 - 59 mL/min/1.73m2 Moderately to severely decreased 30 - 44 mL/min/1.73m2 Severely decreased 15 - 29 mL/min/1.73m2 Kidney Failure < 15 mL/min/1.73m2 *Relative to young adult level Estimated glomerular filtration rate is determined by the 2020 CKD-EPI equation recommended by the National Kidney Foundation (A Unifying Approach to GFR Estimation: Recommendations of the NKF-ASK Task Force on Reassessing the Inclusion of Race in Diagnosing Kidney Disease, JASN 2020). The CKD-EPI equation should not be used for patients with unstable renal function and has not been validated in children and those over 70. Current interpretive data was last reviewed 2021. Blood 07/29/2024 5:34 AM CASH APPLICATIONS SPECIALIST 07/29/2024 5:46 AM CASH APPLICATIONS SPECIALIST Martinez Contreras MD LAB BLOOD ORDERABLES [facility] Result Performing Organization Address [facility] Co de Phone Number [facility] [place] [address] * (ABNORMAL) Hemoglobin and hematocrit (07/29/2024 5:34 AM CASH APPLICATIONS SPECIALIST) [facility] Hgb 10.3(L) 11.9 - 15.5 g/dL Hct 32.2(L) 35.6 - 45.5 % [facility] Blood 07/29/2024 5:34 AM CASH APPLICATIONS SPECIALIST 07/29/2024 5:46 AM CASH APPLICATIONS SPECIALIST Narrative [facility] - 07/29/2024 6:01 AM CASH APPLICATIONS SPECIALIST change to CBC when needed Martinez Contreras MD LAB BLOOD ORDERABLES nal Result Performing Organization Address [facility] de Phone Number [facility] [place] [address] * (ABNORMAL) Basic metabolic panel (07/29/2024 5:34 AM CASH APPLICATIONS SPECIALIST) [facility] Sodium 137 135 - 145 mmol/L Potassium, pl 5.1(H) 3.3 - 4.9 mmol/L [facility] Chloride 109 97 - 110 mmol/L [facility] CO2 20(L) 22 - 32 mmol/L [facility] Anion gap 8 2 - 15 mmol/L [facility] BUN 31(H) 6 - 25 mg/dL [facility] Creatinine 1.59(H) 0.60 - 1.10 mg/dL [facility] Glucose 108 70 - 199 mg/dL [facility] Comment: Interpretive Data Fasting glucose >/= 126 mg/dl is diagnostic for diabetes. Fasting is defined as no caloric intake for at least 8 hours. Fasting glucose between 100 mg/dl to 125 mg/dl is diagnostic of prediabetes. In a patient with classic symptoms of hyperglycemia or hyperglycemic crisis, a random glucose >/= 200 mg/dl is diagnostic for diabetes. In the absence of unequivocal hyperglycemia, results should be confirmed by repeat testing. The classification and Diagnosis of Diabetes Diabetes Care 2021; 46: S19-S40. Current interpretive data was last revised 2022. Calcium 9.1 8.5 - 10.3 mg/dL [facility] Blood 07/29/2024 5:34 AM CASH APPLICATIONS SPECIALIST 07/29/2024 5:46 AM CASH APPLICATIONS SPECIALIST Narrative [facility] - 07/29/2024 6:19 AM CASH APPLICATIONS SPECIALIST Daily us Martinez Contreras MD LAB BLOOD ORDERABLES Fi nal Result [facility] [place] [address] * XR Shoulder Right 2+ View (07/28/2024 6:07 PM CASH APPLICATIONS SPECIALIST) Anatomical Region Laterality Modality Upper Extremities, Shoulder Right Comp uted Radiography 07/29/2024 6:27 AM CASH APPLICATIONS SPECIALIST Impressions 07/29/2024 6:27 AM CASH APPLICATIONS SPECIALIST Revision reverse total right glenohumeral arthroplasty in expected position. Electronically signed by: Dino Rajan M.D. Narrative 07/29/2024 6:27 AM CASH APPLICATIONS SPECIALIST XR SHOULDER RIGHT 2 OR MORE VIEWS HISTORY: Shoulder arthroplasty. FINDINGS: 2 views of the right shoulder are obtained and compared with 06/08/2024. There is interval revision reverse total right glenohumeral arthroplasty. Orthopedic components are in expected position. There is no periprosthetic fracture or osteolysis. Alignment is normal. There is overlying soft tissue gas. Procedure Note Dino Rajan MD - 07/29/2024 XR SHOULDER RIGHT 2 OR MORE VIEWS HISTORY: Shoulder arthroplasty. FINDINGS: 2 views of the right shoulder are obtained and compared with 06/08/2024. There is interval revision reverse total right glenohumeral arthroplasty. Orthopedic components are in expected position. There is no periprosthetic fracture or osteolysis. Alignment is normal. There is overlying soft tissue gas. IMPRESSION: Revision reverse total right glenohumeral arthroplasty in expected position. Electronically signed by: Dino Rajan M.D. Martinez Contreras MD IMG XR PROCEDURES Final Result * Tissue aerobic and anaerobic culture and gram stain Tissue Shoulder, right (07/28/2024 4:19 PM CASH APPLICATIONS SPECIALIST) Direct Specimen Exam Stain: Rare polymorphonuclear leukocytes seen. No organisms seen. Report Final Report: No growth [facility] Tissue (Shoulder, right) 07/28/2024 4:19 PM CASH APPLICATIONS SPECIALIST 07/28/2024 6:28 PM CASH APPLICATIONS SPECIALIST Narrative [facility] - 08/07/2024 8:59 AM CASH APPLICATIONS SPECIALIST Right humerus Testing performed by [facility] ([phone]) Specimens submitted from normally sterile body sites will have all bacterial morphotypes identified. Specimens that contain grossly mixed sherry and/or are from body sites that are not normally sterile will be examined for Staphylococcus aureus, Pseudomonas aeruginosa, beta-hemolytic strep, vancomycin-resistant Enterococcus, Bacteroides, Parabacteroides, Clostridium perfringens and fungus. If any of these are isolated, the organism will be reported. Current interpretive data was last revised on 2019. us Jed Correa MD LAB MICROBIOLOGY - GENERAL ORDERABLES Final Result [facility] [place] [address] * Mycology (fungal) culture and stain Tissue Shoulder, right (07/28/2024 4:19 PM CASH APPLICATIONS SPECIALIST) Direct Specimen Exam Stain: No Fungal elements seen. Report Final Report: No growth of fungus [facility] Tissue (Shoulder, right) 07/28/2024 4:19 PM CASH APPLICATIONS SPECIALIST 07/28/2024 6:28 PM CASH APPLICATIONS SPECIALIST Narrative [facility] - 08/25/2024 7:38 AM CASH APPLICATIONS SPECIALIST Right humerus Testing performed by [facility] ([phone]). Jed Correa MD LAB MICROBIOLOGY - GENERAL ORDERABLES Final Result Performing Organization Address [facility]/ZIP Co de Phone Number [facility] [place] [address] * Mycobacteriology (AFB) culture and acid-fast stain Tissue Shoulder, right (07/28/2024 4:19 PM CASH APPLICATIONS SPECIALIST) Direct Specimen Exam Stain: No Acid-fast bacilli seen Report Final Report: No growth of acid-fast bacilli [facility] Tissue (Shoulder, right) 07/28/2024 4:19 PM CASH APPLICATIONS SPECIALIST 07/28/2024 6:28 PM CASH APPLICATIONS SPECIALIST Narrative [facility] - 09/28/2024 2:20 PM CDT Right humerus Testing performed by [facility] ([phone]). Jed Correa MD LAB MICROBIOLOGY - GENERAL ORDERABLES Final Result [facility] [place] [address] * Tissue aerobic and anaerobic culture and gram stain Tissue Shoulder, right (07/28/2024 4:18 PM CASH APPLICATIONS SPECIALIST) Direct Specimen Exam Stain: No polymorphonuclear leukocytes seen. No organisms seen. Report Final Report: No growth [facility] Tissue (Shoulder, right) 07/28/2024 4:18 PM CASH APPLICATIONS SPECIALIST 07/28/2024 6:25 PM CASH APPLICATIONS SPECIALIST Narrative [facility] - 08/07/2024 9:00 AM CASH APPLICATIONS SPECIALIST Right anterior capsule Testing performed by [facility] ([phone]) Specimens submitted from normally sterile body sites will have all bacterial morphotypes identified. Specimens that contain grossly mixed sherry and/or are from body sites that are not normally sterile will be examined for Staphylococcus aureus, Pseudomonas aeruginosa, beta-hemolytic strep, vancomycin-resistant Enterococcus, Bacteroides, Parabacteroides, Clostridium perfringens and fungus. If any of these are isolated, the organism will be reported. Current interpretive data was last revised on 2019. Jed Correa MD LAB MICROBIOLOGY - GENERAL ORDERABLES Final Result Performing Organization Address [facility] de Phone Number [facility] [place] [address] * Tissue aerobic and anaerobic culture and gram stain Tissue Shoulder, right (07/28/2024 4:18 PM CASH APPLICATIONS SPECIALIST) Direct Specimen Exam Stain: Rare polymorphonuclear leukocytes seen. No organisms seen. Report Final Report: No growth [facility] Tissue (Shoulder, right) 07/28/2024 4:18 PM CASH APPLICATIONS SPECIALIST 07/28/2024 6:26 PM CASH APPLICATIONS SPECIALIST Narrative [facility] - 08/07/2024 9:00 AM CASH APPLICATIONS SPECIALIST Right glenoid Testing performed by [facility] ([phone]) Specimens submitted from normally sterile body sites will have all bacterial morphotypes identified. Specimens that contain grossly mixed sherry and/or are from body sites that are not normally sterile will be examined for Staphylococcus aureus, Pseudomonas aeruginosa, beta-hemolytic strep, vancomycin-resistant Enterococcus, Bacteroides, Parabacteroides, Clostridium perfringens and fungus. If any of these are isolated, the organism will be reported. Current interpretive data was last revised on 2019. Jed Correa MD LAB MICROBIOLOGY - GENERAL ORDERABLES Final Result Performing Organization Address [facility] Co de Phone Number [facility] [place] [address] * Mycology (fungal) culture and stain Tissue Shoulder, right (07/28/2024 4:18 PM CASH APPLICATIONS SPECIALIST) Direct Specimen Exam Stain: No Fungal elements seen. Report Final Report: No growth of fungus [facility] Tissue (Shoulder, right) 07/28/2024 4:18 PM CASH APPLICATIONS SPECIALIST 07/28/2024 6:25 PM CASH APPLICATIONS SPECIALIST Narrative [facility] - 08/25/2024 7:37 AM CASH APPLICATIONS SPECIALIST Right anterior capsule Testing performed by [facility] ([phone]). us Jed Correa MD LAB MICROBIOLOGY - GENERAL ORDERABLES Final Result Performing Organization Address [facility]/[place] [address] * Mycology (fungal) culture and stain Tissue Shoulder, right (07/28/2024 4:18 PM CASH APPLICATIONS SPECIALIST) Direct Specimen Exam Stain: No Fungal elements seen. Report Final Report: No growth of fungus [facility] Tissue (Shoulder, right) 07/28/2024 4:18 PM CASH APPLICATIONS SPECIALIST 07/28/2024 6:26 PM CASH APPLICATIONS SPECIALIST Narrative [facility] - 08/25/2024 7:37 AM CASH APPLICATIONS SPECIALIST Right glenoid Testing performed by [facility] ([phone]). us Jed Correa MD LAB MICROBIOLOGY - GENERAL [place] [address] * Mycobacteriology (AFB) culture and acid-fast stain Tissue Shoulder, right (07/28/2024 4:18 PM CASH APPLICATIONS SPECIALIST) Direct Specimen Exam Stain: No Acid-fast bacilli seen Report Final Report: No growth of acid-fast bacilli [facility] Tissue (Shoulder, right) 07/28/2024 4:18 PM CASH APPLICATIONS SPECIALIST 07/28/2024 6:25 PM CASH APPLICATIONS SPECIALIST Narrative [facility] - 09/28/2024 2:20 PM CDT Right anterior capsule Testing performed by [facility] ([phone]). Jed Correa MD LAB MICROBIOLOGY - GENERAL ORDERABLES Final Result Performing Organization Address [facility] Co de Phone Number [facility] [place] [address] * Mycobacteriology (AFB) culture and acid-fast stain Tissue Shoulder, right (07/28/2024 4:18 PM CASH APPLICATIONS SPECIALIST) Direct Specimen Exam Stain: No Acid-fast bacilli seen Report Final Report: No growth of acid-fast bacilli [facility] Tissue (Shoulder, right) 07/28/2024 4:18 PM CASH APPLICATIONS SPECIALIST 07/28/2024 6:26 PM CASH APPLICATIONS SPECIALIST Narrative [facility] - 09/28/2024 2:20 PM CDT Right glenoid Testing performed by [facility] ([phone]). Jed Correa MD LAB MICROBIOLOGY - GENERAL ORDERABLES Final Result Performing Organization Address [facility] Co de Phone Number [facility] [place] [address] * Tissue aerobic and anaerobic culture and gram stain Tissue Shoulder, right (07/28/2024 4:17 PM CASH APPLICATIONS SPECIALIST) Direct Specimen Exam Stain: Rare polymorphonuclear leukocytes seen. No organisms seen. Report Final Report: No growth [facility] Tissue (Shoulder, right) 07/28/2024 4:17 PM CASH APPLICATIONS SPECIALIST 07/28/2024 6:29 PM CASH APPLICATIONS SPECIALIST Narrative [facility] - 08/07/2024 8:59 AM CASH APPLICATIONS SPECIALIST Right deltopectoral interval Testing performed by [facility] ([phone]) Specimens submitted from normally sterile body sites will have all bacterial morphotypes identified. Specimens that contain grossly mixed sherry and/or are from body sites that are not normally sterile will be examined for Staphylococcus aureus, Pseudomonas aeruginosa, beta-hemolytic strep, vancomycin-resistant Enterococcus, Bacteroides, Parabacteroides, Clostridium perfringens and fungus. If any of these are isolated, the organism will be reported. Current interpretive data was last revised on 2019. Jed Correa MD LAB MICROBIOLOGY - GENERAL ORDERABLES Final Result Performing Organization Address City/[facility]/ZIP Co de Phone Number [facility] [place] [address] * Mycology (fungal) culture and stain Tissue Shoulder, right (07/28/2024 4:17 PM CASH APPLICATIONS SPECIALIST) Direct Specimen Exam Stain: No Fungal elements seen. Report Final Report: No growth of fungus [facility] Tissue (Shoulder, right) 07/28/2024 4:17 PM CASH APPLICATIONS SPECIALIST 07/28/2024 6:29 PM CASH APPLICATIONS SPECIALIST Narrative [facility] - 08/25/2024 7:38 AM CASH APPLICATIONS SPECIALIST Right deltopectoral interval Testing performed by [facility] ([phone]). Jed Correa MD LAB MICROBIOLOGY - GENERAL ORDERABLES Final Result Performing Organization Address City/[facility]/ZIP Co de Phone Number [facility] [place] [address] * Mycobacteriology (AFB) culture and acid-fast stain Tissue Shoulder, right (07/28/2024 4:17 PM CASH APPLICATIONS SPECIALIST) Direct Specimen Exam Stain: No Acid-fast bacilli seen Report Final Report: No growth of acid-fast bacilli [facility] Tissue (Shoulder, right) 07/28/2024 4:17 PM CASH APPLICATIONS SPECIALIST 07/28/2024 6:29 PM CASH APPLICATIONS SPECIALIST Narrative [facility] - 09/28/2024 2:20 PM CDT Right deltopectoral interval Testing performed by [facility] ([phone]). Jed Correa MD LAB MICROBIOLOGY - GENERAL ORDERABLES Final Result Performing Organization Address [facility] Co de Phone Number [facility] [place] [address] * Tissue aerobic and anaerobic culture and gram stain Tissue Shoulder, right (07/28/2024 4:15 PM CASH APPLICATIONS SPECIALIST) Direct Specimen Exam Stain: No polymorphonuclear leukocytes seen. No organisms seen. Report Final Report: No growth [facility] Tissue (Shoulder, right) 07/28/2024 4:15 PM CASH APPLICATIONS SPECIALIST 07/28/2024 6:27 PM CASH APPLICATIONS SPECIALIST Narrative [facility] - 08/07/2024 8:59 AM CASH APPLICATIONS SPECIALIST Right subdeltoid space Testing performed by [facility] ([phone]) Specimens submitted from normally sterile body sites will have all bacterial morphotypes identified. Specimens that contain grossly mixed sherry and/or are from body sites that are not normally sterile will be examined for Staphylococcus aureus, Pseudomonas aeruginosa, beta-hemolytic strep, vancomycin-resistant Enterococcus, Bacteroides, Parabacteroides, Clostridium perfringens and fungus. If any of these are isolated, the organism will be reported. Current interpretive data was last revised on 2019. Jed Correa MD LAB MICROBIOLOGY - GENERAL ORDERABLES Final Result Performing Organization Address [facility] Co de Phone Number [facility] [place] [address] * Mycology (fungal) culture and stain Tissue Shoulder, right (07/28/2024 4:15 PM CASH APPLICATIONS SPECIALIST) Direct Specimen Exam Stain: No Fungal elements seen. Report Final Report: No growth of fungus [facility] Tissue (Shoulder, right) 07/28/2024 4:15 PM CASH APPLICATIONS SPECIALIST 07/28/2024 6:27 PM CASH APPLICATIONS SPECIALIST Narrative [facility] - 08/25/2024 7:38 AM CASH APPLICATIONS SPECIALIST Right subdeltoid space Testing performed by [facility] ([phone]). us Jed Correa MD LAB MICROBIOLOGY - GENERAL ORDERABLES Final Result Performing Organization Address [facility] de Phone Number [facility] [place] [address] * Mycobacteriology (AFB) culture and acid-fast stain Tissue Shoulder, right (07/28/2024 4:15 PM CASH APPLICATIONS SPECIALIST) Direct Specimen Exam Stain: No Acid-fast bacilli seen Report Final Report: No growth of acid-fast bacilli [facility] Tissue (Shoulder, right) 07/28/2024 4:15 PM CASH APPLICATIONS SPECIALIST 07/28/2024 6:27 PM CASH APPLICATIONS SPECIALIST Narrative [facility] - 09/28/2024 2:20 PM CDT Right subdeltoid space Testing performed by [facility] ([phone]). us Jed Correa MD LAB MICROBIOLOGY - GENERAL ORDERABLES Final Result Performing Organization Address [facility] de Phone Number [facility] [place] [address] * CT AN ELECTIVE ENDOTRACHEAL AIRWAY, CT AN PROCEDURE PLACEHOLDER (07/28/2024 2:43 PM CASH APPLICATIONS SPECIALIST) Nicky Abarca CRNA - 07/28/2024 2:43 PM CASH APPLICATIONS SPECIALIST Nicky Cr CRNA 07/28/2024 2:47 PM Airway Patient location: OR Indications for airway management: anesthesia Difficult airway: no Staff: Placed by: WORKFORCE MANAGER: Nicky Cr CRNA Emergent airway documentation: Risks and benefits discussed: yes Consent obtained: yes Consent given by: patient Airway prep: Preoxygenated: yes Patient position: sniffing Mask difficulty assessment: 1 - vent by mask Spontaneous ventilation during airway: absent Sedation level during airway: GA Final airway details: Final airway type: endotracheal airway Tube type: ETT ETT size: 7.0 mm Technique used for successful ETT placement: video laryngoscopy Insertion site: oral Video blade type: yBers Blade size: 3 Cormack-Lehane (video): grade I - full view of glottis ETT to teeth: 22 cm Placement verified by: auscultation Airway secured with: silk tape Number of attempts: 1 Additional comments: DVC, AOI, teeth and soft tissue intact, bryant equal bs, cta o2 sats 100% throughout, ETT easily passed us Coral Hirsch MD ANESTHESIA ORD ERABLES Final Result * CT AN PROCEDURE PLACEHOLDER (07/28/2024 1:53 PM CASH APPLICATIONS SPECIALIST) Narrative Munir Herbert MD - 07/28/2024 1:53 PM CASH APPLICATIONS SPECIALIST George Medellin MD 07/28/2024 1:53 PM Peripheral Block Patient location during procedure: pre-op holding Reason for block: post-op pain management per surgeon request Ultrasound image in chart or stored: yes Block type: single shot Laterality: right Block type: PECS II Staff: Supervising provider: Munir Herbert MD Placed by: Resident: George Medellin MD Procedure prep: Preprocedure checklist: patient identified, procedure contraindications assessed, site marked, procedure consent, surgical consent, IV checked, risks, benefits and alternatives discussed, monitors and equipment checked and timeout performed Patient position: supine and head of bed elevated Procedure performed while patient: sedate with meaningful contact Monitoring: ECG, oximetry and blood pressure Supplemental O2: nasal cannula Prep solution: chlorhexidine/alcohol PPE: provider hat/mask, sterile gloves and sterile probe cover and gel Peripheral nerve block: Technique: ultrasound guided Needle type: insulated, short-bevel and echogenic Needle gauge: 21 G Needle length: 80 mm Injection assessment: injection made incrementally with constant monitoring, negative aspiration for heme, no paresthesias noted, normal resistance to injection and see flowsheet for medication details Assessment: Block success: full evaluation pending Events: patient tolerated procedure well with no complications us Coral Hirsch MD ANESTHESIA ORD ERABLES Final Result * BW IP ANE LDA PERIPHERAL NERVE CATHETER, CT AN PROCEDURE PLACEHOLDER (07/28/2024 1:52 PM CASH APPLICATIONS SPECIALIST) Narrative Munir Herbert MD - 07/28/2024 1:52 PM CASH APPLICATIONS SPECIALIST Munir Herbert MD 07/28/2024 2:56 PM Peripheral Block Patient location during procedure: pre-op holding Reason for block: post-op pain management per surgeon request Ultrasound image in chart or stored: yes Block type: catheter continuous infusion Laterality: right Block type: brachial plexus - interscalene Staff: Supervising provider: Munir Herbert MD Placed by: Resident: George Medellin MD Procedure prep: Preprocedure checklist: patient identified, procedure contraindications assessed, site marked, procedure consent, surgical consent, IV checked, risks, benefits and alternatives discussed, monitors and equipment checked and timeout performed Patient position: supine and head of bed elevated Procedure performed while patient: sedate with meaningful contact Monitoring: ECG, oximetry and blood pressure Supplemental O2: nasal cannula Prep solution: chlorhexidine/alcohol PPE: provider hat/mask, sterile gloves, sterile drape and sterile probe cover and gel Skin infiltrated with lidocaine 1%: yes Peripheral nerve block: Technique: ultrasound guided Needle type: insulated, short-bevel and echogenic Needle gauge: 21 G ([employer] [id number]) Injection assessment: injection made incrementally with constant monitoring, local visualized surrounding nerve on ultrasound, negative aspiration for heme, no paresthesias noted, normal resistance to injection and see flowsheet for medication details Catheter: Catheter type: catheter over needle Other catheter type: Pajunk E-catheter Catheter over needle length: 51 Catheter placement details: catheter position confirmed by ultrasound, no aspiration of heme, negative test dose, benzoin, steri-strips and occlusive dressing applied Assessment: Block success: full evaluation pending Events: patient tolerated procedure well with no complications Coral Hirsch MD ANESTHESIA ORD ERABLES Final Result * TYPE AND SCREEN 14 DAY (07/21/2024 10:29 AM CASH APPLICATIONS SPECIALIST) ABO Rh AB Positive Yamilex, indirect Negative [facility] Blood 07/21/2024 10:2 9 AM CASH APPLICATIONS SPECIALIST 07/21/2024 10:52 AM CASH APPLICATIONS SPECIALIST Narrative [facility] - 07/21/2024 11:44 AM CASH APPLICATIONS SPECIALIST Is this test being ordered in advance for a procedure?->Yes Expected date of procedure:->07/28/24 Has the patient been transfused in the past 3 months?->No Has the patient been in the past 3 months?->No us Usha Gallagher MD LAB BLOOD BANK BIGG T ORDERABLES Final Result Performing Organization Address City/[facility]/ZIP Co de Phone Number [facility] [place] [address] * (ABNORMAL) eGFR (07/21/2024 10:29 AM CASH APPLICATIONS SPECIALIST) eGFR 38(L) >=60 mL/min/1. 73 m2 Comment: Interpretive Data Reference Interval Normal >/= 90 mL/min/1.73m2 Mildly decreased* 60 - 89 mL/min/1.73m2 Mildly to moderately decreased 45 - 59 mL/min/1.73m2 Moderately to severely decreased 30 - 44 mL/min/1.73m2 Severely decreased 15 - 29 mL/min/1.73m2 Kidney Failure < 15 mL/min/1.73m2 *Relative to young adult level Estimated glomerular filtration rate is determined by the 2020 CKD-EPI equation recommended by the National Kid[employer] (A Unifying Approach to GFR Estimation: Recommendations of the NKF-ASK Task Force on Reassessing the Inclusion of Race in Diagnosing Kidney Disease, JASN 2020). The CKD-EPI equation should not be used for patients with unstable renal function and has not been validated in children and those over 70. Current interpretive data was last reviewed 2021. Blood 07/21/2024 10:2 9 AM CASH APPLICATIONS SPECIALIST 07/21/2024 10:52 AM CASH APPLICATIONS SPECIALIST us Jed Correa MD LAB BLOOD ORDERAB LES Final Result Performing Organization Address City/[facility]/ZIP Co de Phone Number [facility] [place] [address] * (ABNORMAL) Differential, auto (07/21/2024 10:29 AM CASH APPLICATIONS SPECIALIST) Neutrophil abs 7.5(H) 1.5 - 6.5 K/cumm Imm gran abs 0.0 0.0 - 0.1 K/cumm [facility] Lymphocyte abs 1.2 0.8 - 3.3 K/cumm [facility] Monocyte abs 0.9(H) 0.2 - 0.8 K/cumm [facility] Eosinophil abs 0.2 0.0 - 0.5 K/cumm [facility] Basophil abs 0.0 0.0 - 0.1 K/cumm [facility] Neutrophil pct 76.9 % [facility] Comment: Interpretive Data Percent cell count reference ranges are not reported, since discordance with absolute values may lead to misinterpretation of CBC data. Current Interpretive Data was last revised on 2017. Imm gran pct 0.2 % [facility] Comment: Interpretive Data Percent cell count reference ranges are not reported, since discordance with absolute values may lead to misinterpretation of CBC data. Current Interpretive Data was last revised on 2017. Lymphocyte pct 11.9 % [facility] Comment: Interpretive Data Percent cell count reference ranges are not reported, since discordance with absolute values may lead to misinterpretation of CBC data. Current Interpretive Data was last revised on 2017. Monocyte pct 9.0 % [facility] Comment: Interpretive Data Percent cell count reference ranges are not reported, since discordance with absolute values may lead to misinterpretation of CBC data. Current Interpretive Data was last revised on 2017. Eosinophil pct 1.7 % [facility] Comment: Interpretive Data Percent cell count reference ranges are not reported, since discordance with absolute values may lead to misinterpretation of CBC data. Current Interpretive Data was last revised on 2017. Basophil pct 0.3 % [facility] Comment: Interpretive Data Percent cell count reference ranges are not reported, since discordance with absolute values may lead to misinterpretation of CBC data. Current Interpretive Data was last revised on 2017. Blood 07/21/2024 10:2 9 AM CASH APPLICATIONS SPECIALIST 07/21/2024 10:52 AM CASH APPLICATIONS SPECIALIST us Usha Gallagher MD LAB BLOOD ORDERABL ES Final Result Performing Organization Address City/[facility]/ZIP Co de Phone Number [facility] [place] [address] * (ABNORMAL) CBC with auto differential (07/21/2024 10:29 AM CASH APPLICATIONS SPECIALIST) Pathologist [facility] [place] WBC 9.8 3.8 - 9.9 K/cumm Hgb 11.3(L) 11.9 - 15.5 g/dL [facility] Hct 34.0(L) 35.6 - 45.5 % [facility] Plt 242 150 - 400 K/cumm [facility] MPV 9.5 9.1 - 12.3 fL [facility] RBC 3.57(L) 3.90 - 5.20 M/cumm [facility] MCV 95.2 81.3 - 96.4 fL [facility] MCH 31.7 27.1 - 33.3 pg [facility] MCHC 33.2 32.3 - 35.7 g/dL [facility] RDW CV 14.0 11.1 - 14.9 % [facility] RDW SD 49.7(H) 35.7 - 48.1 fL [facility] NRBC abs 0.00 0.00 - 0.01 K/cumm [facility] Blood 07/21/2024 10:2 9 AM CASH APPLICATIONS SPECIALIST 07/21/2024 10:52 AM CASH APPLICATIONS SPECIALIST Usha Gallagher MD LAB BLOOD ORDERABL ES Final Result [facility] [place] [address] * (ABNORMAL) Comprehensive metabolic panel (07/21/2024 10:29 AM CASH APPLICATIONS SPECIALIST) Pathologist [facility] [place] Sodium 137 135 - 145 mmol/L Potassium, pl 4.2 3.3 - 4.9 mmol/L [facility] Chloride 103 97 - 110 mmol/L [facility] CO2 22 22 - 32 mmol/L [facility] Anion gap 12 2 - 15 mmol/L [facility] BUN 20 6 - 25 mg/dL [facility] Creatinine 1.53(H) 0.60 - 1.10 mg/dL [facility] Glucose 97 70 - 199 mg/dL [facility] Comment: Interpretive Data Fasting glucose >/= 126 mg/dl is diagnostic for diabetes. Fasting is defined as no caloric intake for at least 8 hours. Fasting glucose between 100 mg/dl to 125 mg/dl is diagnostic of prediabetes. In a patient with classic symptoms of hyperglycemia or hyperglycemic crisis, a random glucose >/= 200 mg/dl is diagnostic for diabetes. In the absence of unequivocal hyperglycemia, results should be confirmed by repeat testing. The classification and Diagnosis of Diabetes Diabetes Care 202; 46: S19-S40. Current interpretive data was last revised 2022. Calcium 10.2 8.5 - 10.3 mg/dL [facility] Bilirubin, total 0.4 0.1 - 1.2 mg/dL [facility] Protein, pl 7.6 6.5 - 8.5 g/dL [facility] Albumin 3.9 3.5 - 5.0 g/dL [facility] Alk phos 94 40 - 130 Units/L [facility] ALT 15 7 - 45 Units/L [facility] AST 16 10 - 45 Units/L [facility] Blood 07/21/2024 10:2 9 AM CASH APPLICATIONS SPECIALIST 07/21/2024 10:52 AM CASH APPLICATIONS SPECIALIST Jed Correa MD LAB BLOOD ORDERAB LES Final Result [facility] Department [place] [address] from Last 3 Months Insurance [place] [employer] [place] [employer] PPO [place] Advance Directives For more information, please contact: [phone] Documents on File Type Date Recorded Patient Registered Mail Clerk Expl anation ADVANCE DIRECTIVE 07/28/2024 11:21 AM Ann r of Him Manager-Medical * Full Code (Latest Code Status on File) Date Activated Date Inactivated Comments 07/28/2024 11:15 PM 07/29/2024 5:28 PM * Full Code Date Activated Date Inactivated Comments 11/19/2022 12:21 PM 11/23/2022 9:33 PM Care Teams Food Safety Specialist Relationship Specialty Start Date End Date Paulo Mujica MD [address] [place] [address] PCP - General 08/24/11
--- OUTSIDE RECORDS SUMMARY | 2024-10-16 12:48 | XMS_ITS | Data Portability ---
Author Organization [place] [facility] [place] [facility], Main Office Address [address] [place] [address] Care Team Providers Care Supervisor Stone Name Role Phone KAYLIN YOUNG Primary Care Provider KAYLIN YOUNG Referring Provider [phone] Assessment Encounter Date Assessment Date Assessment LastModified by Organization Details LastModified Time 06/12/2023 06/12/2023 63-year-old female presents for evaluation of her right shoulder. She has a history of right shoulder arthritis and has had a reverse total shoulder arthroplasty with Dr. Vergara on 06/28/2022. Overall she is doing well, reports no pain, 0/10. She has finished her physical therapy. She is able to do all of her daily activities without difficulty. She reports that when she lies down, she sometimes feels like catching up of her shoulder, which resolved once she sits upright again. Review of systems per patient questionnaire Physical exam: She has good range of motion of the shoulder, is able to reach above her head and behind her back without pain. Incisions well healed without any signs of infection. She has no tenderness around the shoulder. X-rays of the shoulder were obtained reviewed, demonstrating hardware in place, there was some valgus alignment of the stem. She is very functional with no complaints. We will have her continue activities as tolerated. She may call with any questions or concerns. [email or web address] Not available 06/12/2023 11:27:23 Plan of Treatment Reminders Order Date Submit Date Provider Last Modified By Organization Details Last Modified Time Details Appointments None recorded. Lab None recorded. Referral None recorded. Procedures None recorded. Surgeries None recorded. Imaging XR, shoulder 2022 023 [email or web address] [facility] [place], [address], [place], [address], 3 23:05:12 XR, shoulder, 2 or more view 2022 023 [email or web address] [facility] [place], [address], [place], [address], 3 15:03:47 XR, shoulder 2022 023 [email or web address] [facility] [place], [address], [address], 3 17:04:30 Medication Orders None recorded. Patient TargetsNo targets recorded. Patient InstructionsNo instructions recorded. Reason for Referral None Reported. Results Created Date Observation Date Name Description Value Unit Range Abnormal Flag Note LastModifiedBy Organization Detail LastModifiedTime 06/26/2006/26/2022 TYPE AND SCREE N patient ABO group and Rh Ab positi ve Not Available [facility] (Lab) [address] [place], [address], 06/26/2022 14:24:47 06/26/2006/26/2022 TYPE AND SCREE N patient antibody screen negati ve Not Available [facility] (Lab) [address] [place], [address], 06/26/2022 14:24:47 06/26/2006/26/2022 MRSA/ STAPH AUREU S, NASAL , PCR MRSA, nasal negati ve Not Available [facility] (Lab) [address] [facility] [place], [address], 06/26/2022 13:52:17 06/26/2006/26/2022 MRSA/ STAPH AUREU S, NASAL , PCR staph aureus, nasal negati ve Not Available [facility] (Lab) [address] [facility] [place], [address], 06/26/2022 13:52:17 06/26/20 22 06/26/2022 SARS- COV-2 RNA(C OVID1 9),RT -PCR sars-cov-2 RNA(covid19) ,RT-PCR negati ve This test has been autho rized by the FDA under an Emerg ency Use Autho rizat ion (EUA) for use by autho rized labor atori es. Negat jesús resul ts do not precl ude SARS- CoV-2 and shoul d not be used as the sole basis for treat ment or other patie nt manag ement decis ions. Test resul ts shoul d be corre lated with the clini roberto carlos histo ry, epide miolo gical data, and other data avail able to the clini fernando evalu ating the patie nt. Denice noel the Fact Sheet s for healt h care provi ders and patie nts at the [facility]: https ://ww w.fda .gov/ media /1363 12/do wnloa d https ://ww w.fda .gov/ media /1363 13/do wnloa d https ://Agent Panda.fda .gov/ media /1421 92/do wnloa d https ://Kiwigrid w.fda .gov/ media /1421 91/do wnloa d Zbigniewo rogersog y: Real- Time RT-PC R Not Available [facility] (Lab) [address] [place], [address], 06/26/2022 13:27:00 06/26/20 22 06/26/2022 BASIC METAB OLIC PANEL sodium 138 mmol/ L 137-14 5 Not Available [facility] (Lab) [address] [place], [address], 06/26/2022 13:20:35 06/26/20 22 06/26/2022 BASIC METAB OLIC PANEL potassium 4.4 mmol/ L 3.5-5. 1 Not Available [facility] (Lab) [address] [place], [address], 06/26/2022 13:20:35 06/26/20 22 06/26/2022 BASIC METAB OLIC PANEL chloride 103 mmol/ L 98-107 Not Available [facility] (Lab) [address] [place], [address], 06/26/2022 13:20:35 06/26/20 22 06/26/2022 BASIC METAB OLIC PANEL carbon dioxide 24 mmol/ L 22-30 Not Available [facility] (Lab) [address] [place], [address], 06/26/2022 13:20:35 06/26/20 22 06/26/2022 BASIC METAB OLIC PANEL anion gap 15.4 mmol/ L 14-22 Not Available [facility] (Lab) [address] [place], [address], 06/26/2022 13:20:35 06/26/20 22 06/26/2022 BASIC METAB OLIC PANEL glucose 92 mg/dL 70-99 Not Available [facility] (Lab) [address] [place], [address], 06/26/2022 13:20:35 06/26/20 22 06/26/2022 BASIC METAB OLIC PANEL BUN 28 mg/dL 8-19 high Not Available [facility] (Lab) [address] [place], [address], 06/26/2022 13:20:35 06/26/20 22 06/26/2022 BASIC METAB OLIC PANEL creatinine 1.38 mg/dL 0.66-1 .25 high Not Available [facility] (Lab) [address] [place], [address], 06/26/2022 13:20:35 06/26/20 22 06/26/2022 BASIC METAB OLIC PANEL GFR 39 Refer ence Range : [place] ge GFR Healt hy Adult : >60 mL/mi n/1.7 3 m2 Chron ic Kidne y Disea se: 15-60 mL/mi n/1.7 3 m2 Kidne y Failu re: <15/m L/min /1.73 m2 www.n iddk. nih.g ov The MDRD study equat ion has not been valid ated in child jane <18 years of age; pregn ant women ; the elder ly >85 years of age; or in some racia l or ethni c subgr oups, such as Hispa nics. Outsi de the valid ated clifton eters , estim ated GFR is less accur ate, requi ring clini roberto carlos judgm ent on a case- by-ca se basis . Clini roberto carlos inter preta tion for other races and ages must be made by the clini fernando. The MDRD study equat ion has not been valid ated for the evalu ation of serum creat inine relat ed to nutri иван l statu s or medic ation usage . For perso ns <18 years of age, a pedia tric GFR calcu lator is avail able on the [facility] websi te: https ://mirtha duvall.mary rg/pr ofess ional s/kdo qi/gf r_cal culat or Not Available [facility] (Lab) [address] [place], [address], 06/26/2022 13:20:35 06/26/20 22 06/26/2022 BASIC METAB OLIC PANEL calcium 10.4 mg/dL 8.4-10 .2 high Not Available [facility] (Lab) [address] [place], [address], 06/26/2022 13:20:35 06/26/20 22 06/26/2022 CBC/C OMPLE TE BLD COUNT W/DIF F white blood cells 5.5 x10'3 /uL 4.2-10 .8 Not Available [facility] (Lab) [address] [place], [address], 06/26/2022 13:08:45 06/26/20 22 06/26/2022 CBC/C OMPLE TE BLD COUNT W/DIF F red blood cells 3.99 x10'6 /uL 3.80-5 .20 Not Available [facility] (Lab) [address] [place], [address], 06/26/2022 13:08:45 06/26/20 22 06/26/2022 CBC/C OMPLE TE BLD COUNT W/DIF F hemoglobin 12.4 g/dL 12.0-1 5.6 Not Available [facility] (Lab) [address] [place], [address], 06/26/2022 13:08:45 06/26/20 22 06/26/2022 CBC/C OMPLE TE BLD COUNT W/DIF F hematocrit 38.0 % 35.7-4 5.7 Not Available [facility] (Lab) [address] [place], [address], 06/26/2022 13:08:45 06/26/20 22 06/26/2022 CBC/C OMPLE TE BLD COUNT W/DIF F mean red cell volume 95.2 fL 82.0-9 9.0 Not Available [facility] (Lab) [address] [place], [address], 06/26/2022 13:08:45 06/26/20 22 06/26/2022 CBC/C OMPLE TE BLD COUNT W/DIF F mean red cell hemoglobin 31.1 pg 27.0-3 3.0 Not Available [facility] (Lab) [address] [place], [address], 06/26/2022 13:08:45 06/26/20 22 06/26/2022 CBC/C OMPLE TE BLD COUNT W/DIF F mean RBC HGB concentratio n 32.6 g/dL 31.0-3 6.0 Not Available [facility] (Lab) [address] [place], [address], 06/26/2022 13:08:45 06/26/20 22 06/26/2022 CBC/C OMPLE TE BLD COUNT W/DIF F red cell distribution width 13.2 % 11.8-1 5.5 Not Available [facility] (Lab) [address] [place], [address], 06/26/2022 13:08:45 06/26/20 22 06/26/2022 CBC/C OMPLE TE BLD COUNT W/DIF F platelets 239 x10'3 /uL 150-40 0 Not Available [facility] (Lab) [address] [place], [address], 06/26/2022 13:08:45 06/26/20 22 06/26/2022 CBC/C OMPLE TE BLD COUNT W/DIF F mean platelet volume 9.4 fL 9.0-12 .4 Not Available [facility] (Lab) [address] [place], [address], 06/26/2022 13:08:45 06/26/20 22 06/26/2022 CBC/C OMPLE TE BLD COUNT W/DIF F neutrophils 61.0 % 39.0-7 2.0 Not Available [facility] (Lab) [address] [place], [address], 06/26/2022 13:08:45 06/26/20 22 06/26/2022 CBC/C OMPLE TE BLD COUNT W/DIF F lymphocytes 27.2 % 16.0-4 7.0 Not Available [facility] (Lab) [address] [place], [address], 06/26/2022 13:08:45 06/26/20 22 06/26/2022 CBC/C OMPLE TE BLD COUNT W/DIF F monocytes 8.5 % 5.0-12 .0 Not Available [facility] (Lab) [address] [place], [address], 06/26/2022 13:08:45 06/26/20 22 06/26/2022 CBC/C OMPLE TE BLD COUNT W/DIF F eosinophils 2.4 % 1.0-7. 0 Not Available [facility] (Lab) [address] [place], [address], 06/26/2022 13:08:45 06/26/20 22 06/26/2022 CBC/C OMPLE TE BLD COUNT W/DIF F basophils 0.7 % 0.0-2. 0 Not Available [facility] (Lab) [address] [place], [address], 06/26/2022 13:08:45 06/26/20 22 06/26/2022 CBC/C OMPLE TE BLD COUNT W/DIF F immature granulocytes 0.2 % 0.00-0 .50 Not Available [facility] (Lab) [address] [place], [address], 06/26/2022 13:08:45 06/26/20 22 06/26/2022 CBC/C OMPLE TE BLD COUNT W/DIF F neutrophils, absolute count 3.36 x10'3 /uL 1.5-8. 0 Not Available [facility] (Lab) [address] [place], [address], 06/26/2022 13:08:45 06/26/20 22 06/26/2022 CBC/C OMPLE TE BLD COUNT W/DIF F lymphocytes, absolute count 1.50 x10'3 /uL 1.07-3 .43 Not Available [facility] (Lab) [address] [place], [address], 06/26/2022 13:08:45 06/26/20 22 06/26/2022 CBC/C OMPLE TE BLD COUNT W/DIF F monocytes, absolute count 0.47 x10'3 /uL 0.29-0 .99 Not Available [facility] (Lab) [address] [place], [address], 06/26/2022 13:08:45 12/13/20 22 06/26/2022 CBC/C OMPLE TE BLD COUNT W/DIF F eosinophils, absolute count 0.13 x10'3 /uL 0.02-0 .53 Not Available [facility] (Lab) [address] [place], [address], 06/26/2022 13:08:45 06/26/20 22 06/26/2022 CBC/C OMPLE TE BLD COUNT W/DIF F basophils, absolute count 0.04 x10'3 /uL 0.01-0 .08 Not Available [facility] (Lab) [address] [place], [address], 06/26/2022 13:08:45 06/26/20 22 06/26/2022 CBC/C OMPLE TE BLD COUNT W/DIF F immature granulocytes ,absolute 0.01 x10'3 /uL 0.00-0 .05 Not Available [facility] (Lab) [address] [place], [address], 06/26/2022 13:08:45 06/26/20 22 06/26/2022 CBC/C OMPLE TE BLD COUNT W/DIF F nucleated red blood cells 0.0 % -0 Not Available [facility] (Lab) [address] [place], [address], 06/26/2022 13:08:45 06/26/20 22 06/26/2022 CBC/C OMPLE TE BLD COUNT W/DIF F NRBC# 0.00 x10'3 /uL Not Available [facility] (Lab) [address] [place], [address], 06/26/2022 13:08:45 06/26/20 22 06/26/2022 XR, chest , 2 view [facility] [address] [place] [address] [phone] Patien t Name: MEGHANA GARDNER ion #: [id number] Sex: F : 1959 3 Locati on: PAT Attend ing Physic julisa: OWEN VERGARA Orderi ng Physic julisa: OWEN VERGARA Exam Date: 2021 11:17 AM Exam Name: XR CHEST 2V Admitt ing Diagno sis(es ): RADIOL OGY REPORT - FINAL EXAM: XR CHEST 2V HISTOR Y: PREOP/ RT REVERS E TOTAL SHOULD ER COMPAR TENA: None. TECHNI QUE: Two views of the chest were perfor med. FINDIN GS: No pneumo thorax , consol idativ e infilt rates, pleura l effusi ons, or pulmon sukhwinder edema. The heart is not enlarg ed. IMPRES RYAN: Unrema rkable 2 view chest. Page 1 of 2 [facility] Name: MEGHANA GARDNER Access ion #: [id number] Sex: F : 1959 3 Exam Date: 2021 11:17 AM Exam Name: XR CHEST 2V Admitt ing Diagno sis(es ): Create d and electr onical ly signed by: Oscar rolon MD Signed Date: 2021 11:46 AM (CT) Dictat ed by: Oscar rolon MD DD: 2021 11:46 AM (CT) DT: 2021 11:46 AM (CT) Page 2 of 2 [id number] [facility] (Imaging) [address] [place], [address], 09/13/2022 01:27:23 07/17/19 23 XR, shoul verona, 2 or more view No observ ation record ed. MIGRATION. [facility] [place] [address], [place], [address], 09/13/2022 01:27:23 08/14/19 23 XR, shoul verona, 2 or more view No observ ation record ed. [id number] [facility] [place] [address], [address], 09/13/2022 01:27:23 09/26/19 23 XR, shoul verona No observ ation record ed. [email or web address] [facility] [place] [address], [address], 09/25/2022 17:04:30 12/26/19 23 XR, shoul verona, 2 or more view No observ ation record ed. [email or web address] [facility] [place] [address], [address], 12/25/2022 15:03:46 06/12/20 23 XR, shoul verona No observ ation record ed. [email or web address] [facility] [place] [address], [address], 06/12/2023 10:31:25 Result Notes None recorded. Problems Name Problem SNOMED Code Status Onset Date Resolution Date Notes Provider Name and Address Organization Details Recorded Time Pain of left shoulder joint 3982446295276 9109 Active 2021 Not Available [facility] 3 01:25:26 Pain of right shoulder joint 8253985738555 9100 Active 2021 Not Available [facility] 3 01:25:26 Osteoarthr itis 863765931 Active 2021 Not Available [facility] 3 01:25:26 Problem Notes None recorded. Procedures Surgical History Date Name Laterality Status Provider Name and Address Organization Details Recorded Time hernia repair completed Not Available [facility] th 09/13/2022 01:24:19 Foot Surgery completed Not Available [facility] 09/13/2022 01:24:19 total knee replacement completed Not Available [facility] 09/13/2022 01:24:19 section completed Asmita ellis [facility] 06/12/2023 10:29:47 Imaging Results Imaging Date Name Status LastModified by Organiz [facility] Details LastModified Time 07/17/2022 XR, shoulder, 2 or more view completed [id number] [facility] [place] [address], [address], 09/13/2022 01:27:23 08/14/2022 XR, shoulder, 2 or more view completed [id number] [facility] [place] [address], [address], 09/13/2022 01:27:23 06/26/2022 XR, chest, 2 view completed [id number] [facility] (Imaging) [address] [place], [address], 09/13/2022 01:27:23 09/25/2022 XR, shoulder completed [email or web address] [facility] [place] [address], [address], 09/25/2022 17:04:30 12/25/2022 XR, shoulder, 2 or more view completed [email or web address] [facility] [place] [address], [address], 12/25/2022 15:03:46 06/12/2023 XR, shoulder completed [email or web address] [facility] [place] [address], [address], 06/12/2023 10:31:25 Procedure Notes None recorded. Medical Equipment None Reported. Allergies No known drug allergies Medications Name Sig Start Date Stop Date Status Note LastModified by Organization Details LastModified Time amoxicillin 500 mg capsule TAKE FOUR CAPSULES BY MOUTH ONE HOUR BEFORE APPOINTME NT active Not Available Not Available No t Available diltiazem CD 180 mg capsule,ext ended release 24 hr TAKE 1 CAPSULE BY MOUTH ONCE DAILY 06/11 completed Not Available Not Available Not Available hydrocodone 5 mg-acetamin ophen 325 mg tablet TAKE 1 TABLET BY MOUTH EVERY 4 HOURS NEEDED FOR PAIN 06/11 completed Not Available Not Available Not Available Nystop 100,000 unit/gram topical powder APPLY POWDER TOPICALLY DAILY 06/12 completed Not Available Not Available Not Available amlodipine 5 mg tablet TAKE 1 TABLET BY MOUTH ONCE DAILY active Not Available Not Available No t Available ciprofloxac in 500 mg tablet TAKE 1 TABLET BY MOUTH EVERY 12 HOURS FOR 7 DAYS 07/17 completed Not Available Not Available Not Available tramadol 50 mg tablet TAKE 1 TABLET BY MOUTH THREE TIMES DAILY NEEDED 06/11 completed Not Available Not Available Not Available famotidine 20 mg tablet TAKE 1 TABLET BY MOUTH ONCE DAILY FOR 4 DAYS 06/12 completed Not Available Not Available Not Available gentamicin 0.3 % eye drops INSTILL 3 DROPS INTO LEFT EAR TWICE DAILY 06/11 completed Not Available Not Available Not Available hydrocodone 7.5 mg-acetamin ophen 325 mg tablet TAKE 1 TABLET BY MOUTH EVERY 6 HOURS NEEDED FOR PAIN 06/11 completed Not Available Not Available Not Available oseltamivir 75 mg capsule TAKE 1 CAPSULE BY MOUTH TWICE DAILY 06/11 completed Not Available Not Available Not Available dexamethaso ne 4 mg tablet TAKE 1 TABLET BY MOUTH ONCE DAILY WITH SUPPER FOR 1 DAY AND THEN 1 TWICE DAILY FOR 1 DAY AND THEN 1/2 (ONE-HALF ) TWICE DAILY FOR 2 DAYS AND THEN 1/2 (ONE-HALF ) ONCE DAILY FOR 1 DAY 06/11 completed Not Available Not Available Not Available clotrimazol e 1 % topical solution USE 4 DROPS TO THE LEFT EAR 3 TIMES DAILY FOR 21 DAYS 06/11 completed Not Available Not Available Not Available mupirocin 2 % topical ointment APPLY OINTMENT TO NARES TWICE DAILY STARTING 5 DAYS PRIOR TO SURGERY ENDING THE DAY PRIOR. 06/12 completed Not Available Not Available Not Available levofloxaci n 500 mg tablet TAKE 1 TABLET BY MOUTH ONCE DAILY FOR 10 DAYS 06/11 completed Not Available Not Available Not Available lisinopril 40 mg tablet TAKE 1 TABLET BY MOUTH ONCE DAILY active Not Available Not Available No t Available levothyroxi ne 112 mcg tablet TAKE 1 TABLET BY MOUTH ONCE DAILY active Not Available Not Available No t Available ciprofloxac in 0.3 %-dexametha sone 0.1 % ear drops,suspe nsion INSTILL 4 DROPS INTO LEFT EAR TWICE DAILY FOR 7 DAYS 06/12 completed Not Available Not Available Not Available Glucosamine 06/11 completed Not Available Not Available Not Available Multiple Vitamin, Womens active Not Available Not Available Not Available levetiracet am 1,000 mg tablet TAKE 1 TABLET BY MOUTH EVERY 12 HOURS FOR 7 DOSES 06/12 completed Not Available Not Available Not Available fluocinolon e acetonide oil 0.01 % ear drops 06/11 completed Not Available Not Available Not Available Vitals Date Recorded Body mass index (BMI) Body height Body weight Provider Name and Address Organization Details Last Updated DateTime 07/17/2022 43.4 kg/m2 160.02 cm 899534.13 g Not Available [facility] 09/13/2022 01:24:53 Date Recorded Body mass index (BMI) Body height Body weight Provider Name and Address Organization Details Last Updated DateTime 08/14/2022 25.7 kg/m2 160.02 cm 31223.89 g Not Available [facility] 09/13/2022 01:24:53 Date Recorded Body height Body mass index (BMI) Body weight Provider Name and Address Organization Details Last Updated DateTime 09/25/2022 157.48 cm 44.8 kg/m2 222751.[address] [facility] 09/25/2022 15:45:02 Date Recorded Body height Body mass index (BMI) Body weight Provider Name and Address Organization Details Last Updated DateTime 12/25/2022 157.48 cm 43.5 kg/m2 766865.[address] [facility] 12/25/2022 14:27:09 Date Recorded Body height Body mass index (BMI) Body weight Provider Name and Address Organization Details Last Updated DateTime 06/12/2023 160.02 cm 44.3 kg/m2 512797.[address] [facility] [facility] 06/12/2023 10:26:55 Social History Question Answer Notes LastModified by Organizat ion Details LastModified Time Tobacco Smoking Status Former Smoker Not Available [facility] 09/13/2022 01:23:40 What Is Your Level Of Alcohol Consumption? Occasional [id number] Information not available 09/13/2022 Sex: Unknown Functional Status None recorded. Mental Status None recorded. Family History Relationship Description Onset Age of this Age Resolved Age Notes LastModified by Organization Details LastModified Time Mother Heart disease [id number] Not available 09/13/2022 01:24:21 Mother Hypertensive disorder [id number] Not available 09/13/2022 01:24:21 Father Hypertensive disorder [email or web address] Not available 2022 10:29:13 Medical History Condition Response BLINDNESS N KIDNEY STONES N MRSA N CARPAL TUNNEL SYNDROME N LUNG DISEASE/DISORDER N HISTORY OF DRUG ABUSE N COPD N RADIATION / CHEMOTHERAPY N SPORTS INJURY N ANKLE PAIN N BLOOD DISEASES N SCHIZOPHRENIA N SHINGLES N BOWEL PROBLEMS N SHOULDER PAIN N DEPRESSION (INCLUDING POST ) N STROKE/TIA N ULCERS N KNEE PAIN N BENIGN PROSTATIC HYPERPLASIA N OBESITY N GERD/NAUSEA N ANEURYSM N URINARY/BLADDER/KIDNEY PROBLEMS N CORONARY ARTERY DISEASE (CAD) N ADDICTION CONCERNS N USE OF BLOOD THINNERS N SKIN PROBLEMS N EMPHYSEMA N MUSCLE,JOINT OR BONE PROBLEMS N DVT N STOMACH ULCERS N BLOOD CLOTS N USE OF NSAIDS N CONCUSSION OR SPINAL TRAUMA N NEUROPATHY N AIDS/HIV N FRACTURES N ELBOW PAIN N HYPERTENSION Y TOURETTE'S N ANXIETY DISORDER N Metal allergy N BLOOD TRANSFUSION N ANEMIA/BLOOD DISORDER N BIPOLAR DISORDER N BRONCHITIS N OSTEOARTHRITIS N TUBERCULOSIS N FOOT PROBLEM N HEART VALVE DISORDERS N ALLERGIES/HAYFEVER N SOFT TISSUE INJURY N INFECTIOUS DISEASE N HEART ARRHYTHMIA N INSOMNIA N RHEUMATOID ARTHRITIS N HIGH CHOLESTEROL / HYPERLIPIDEMIA N EDEMA N CHRONIC PAIN SYNDROME N CAROTID BLOCKAGE N BACK / NECK PROBLEMS N HAVE YOU BEEN HOSPITALIZED OR SEEN IN [facility] IN THE PAST YEAR ? N BURSITIS N HERNIATED DISC N DIALYSIS N FIBROMYALGIA N OSTEOPOROSIS N ARTHRITIS Y NO SIGNIFICANT PAST MEDICAL HISTORY N PERIPHERAL NEUROPATHY N DIABETES, TYPE N HEARTBURN / REFLUX N HEPATITIS / LIVER DISEASE N GOUT N SLEEP DISORDER N ALZHEIMER'S DISEASE N HERPES N SEIZURES/EPILEPSY N HEADACHES/MIGRAINES N VASCULAR DISEASE N HIP PAIN N Blood Disorder N DIZZINESS N HEAD TRAUMA OR INJURY N HEART DISEASE/HEART PROBLEMS N MULTIPLE SCLEROSIS N CARDIAC ARRHYTHMIA N CANCER: SPECIFY N ANESTHESIA COMPLICATIONS N ATRIAL FIBRILLATION N AUTOIMMUNE DISEASE N Gynecological HistoryNo gynecological history recorded. Obstetrics History GPAL:G 0 P 0 0 0 0 Past Encounters Encounter ID Performer Location Encounter Start Date Encounter Closed Date Diagnosis/Indication Diagnosis SNOMED-CT Code Diagnosis ICD10 Code Diagnosis Note [id number] [facility] [address] [place] [address] 04/09/2022 00:00:00 04/09/2022 15:25:32 [id number] [facility] [address] [place] [address] 05/15/2022 00:00:00 05/15/2022 10:38:39 [id number] [facility] [address] [place] [address] 06/12/2022 00:00:00 06/12/2022 13:49:33 [id number] [facility] [place] [address] [place] [address] 07/03/2022 00:00:00 07/03/2022 16:40:32 [id number] [facility] [place] [address] [place] [address] 07/17/2022 00:00:00 07/17/2022 16:40:18 [id number] [facility] [place] [address] [place] [id number] 08/14/2022 00:00:00 08/14/2022 17:30:29 [id number] Owen Vergara MD [facility] [address] [place] [address] 09/25/2022 15:42:51 09/25/2022 16:41:06 Pain of right shoulder joint [id number] M25.511 Osteoarthritis [id number] M19.011 patient will continue with a home strengthen ing program I will see her in 3 months for AP axillary and Y lateral x-ray view we will then see her again 6 months later when she is about a year postop patient doing very well at this point [id number] Owen Vergara MD [facility] [place] [address] [place] [address] 12/25/2022 14:24:13 12/25/2022 15:02:00 Pain of right shoulder joint [id number] M25.511 patient is doing very well we can see her back in about 6 months for follow-up x-rays she can be activity as tolerated gotten back excellent internal and external rotation as well as forward elevation Osteoarthritis [id number] M19.797 [id number] Good Machado MD [facility] [place] [address] [place] [address] 06/12/2023 10:08:53 06/12/2023 10:49:38 Pain of right shoulder joint [id number] M25.511 Health Concerns Section Related Observation LastModified by Organization Detai ls LastModified Time None Recorded Concern Status LastModified by Organization Details LastModified Time None Recorded Advance Directives Directive None Recorded Payers Encounter Date Sequence Insurance Name Policy Number Policy [place] Covered Member ID [place] Member ID Guarantor Name 09/25/2022 1 [employer] [id number] Jose De Jesus Odorizzi [id number] Meghana Odorizzi 12/25/2022 1 [place] [id number] Jose De Jesus Odorizzi [id number] Meghana Odorizzi 06/12/2023 1 [place] [id number] Jose De Jesus Odorizzi [id number] Meghana Odormichelei Notes Date Note Type Note Provider Name and Address Organization Details Recorded Time 09/25/2022 text/html patient is 3 mon ths postop from a right reverse total shoulder arthroplasty patient is doing very well no pain now her activity is improved significantly range of motion is improved Owen Vergara MD [address], [place], [address], [facility] 09/25/2022 17:04:58 12/25/2022 text/html patient is 6 mon ths postop from a right reverse total shoulder arthroplasty patient is doing very well no pain now her activity is improved significantly range of motion is improved Owen Vergara MD [address], [place], [address], [place] [facility] 12/25/2022 15:04:14 OBGyn Episode No OBEpisode recorded.
--- OUTSIDE RECORDS SUMMARY | 2024-10-16 12:48 | XMS_ITS | Encounter Summary ---
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
--- OUTSIDE RECORDS SUMMARY | 2024-10-16 12:48 | XMS_ITS | Clinical Summary ---
Author Organization [facility] [address] [place] [address] Care Team Providers Care Infertility Nurse Name Role Phone Paulo Mujica MD Primary Care Provider [phone] Allergies No known active allergies Medications lisinopriL (PRINIVIL,ZESTR MA) 40 mg tabletIndicatio ns:hypertension Take 1 tablet [...] 1 tablet (125 mcg total) by mouth electroneurodiagnostic technologist before breakfast 4 Active docusate sodium (COLACE) [...] Pain in joint of left shoulder 04/09/2022 Encounters Date Type Department Care Team Description 09/18/2024 Documentation [facility] Nephrology [address] [address] Advanced Medicine 5th [place] [address] Sirisha Bernard MD 09/18/2024 Orders Only [facility] Nephrology [address] [place] [address] 5th [place] [address] [place] [address] Sirisha Bernard MD VANDANA (acute kidney injury) (Primary Dx) 09/14/2024 2:55 PM FORK LIFT MECHANIC Lab [facility] [address] [place] [phone] Stage 3b chronic kidney disease (HCC) 09/14/2024 10:40 AM FORK LIFT MECHANIC Office Visit [facility] Orthopaedic Surgery [id number] [place] [address] 2nd Floor [address] [place] [phone] Jed Correa MD S/P reverse total shoulder arthroplasty, right (Primary Dx) 09/14/2024 10:38 AM FORK LIFT MECHANIC - 09/14/2024 11:59 PM FORK LIFT MECHANIC Hospital Encounter [facility] Radiology at the [facility] [address] [place] [id number] S/P reverse total shoulder arthroplasty, right Discharge Disposition: Discharge to home or self care 09/11/2024 Orders Only [facility] Nephrology [address] [place] [address] 5th [place] [address] Sirisha Bernard MD Stage 3b chronic kidney disease (HCC) (Primary Dx) 09/07/2024 2:43 PM FORK LIFT MECHANIC - 09/07/2024 11:59 PM FORK LIFT MECHANIC Hospital Encounter [facility] [address] [place] [address] Stage 3 chronic kidney disease, unspecified whether stage 3a or 3b CKD (HCC) Discharge Disposition: Discharge to home or self care 09/07/2024 1:00 PM FORK LIFT MECHANIC Office Visit [facility] Nephrology [address] [facility] 5th [place] [address] [place] [address] Stage 3 chronic kidney disease, unspecified whether stage 3a or 3b CKD (HCC) (Primary Dx); S/P reverse total shoulder arthroplasty, right; Proteinuria, unspecified type; Hypertension, unspecified type; Anemia in stage 3 chronic kidney disease, unspecified whether stage 3a or 3b CKD (HCC); Renal osteodystrophy 08/12/2024 11:35 AM FORK LIFT MECHANIC - 08/12/2024 11:59 PM FORK LIFT MECHANIC Hospital Encounter [address] [place] [address] S/P orthopedic surgery, follow-up exam Discharge Disposition: Discharge to home or self care 08/12/2024 11:30 AM FORK LIFT MECHANIC Office Visit [facility] Orthopaedic Surgery [address] [facility] Medical Office Building [address] [place] [address] Jed Correa MD S/P orthopedic surgery, follow-up exam (Primary Dx) 08/01/2024 Telephone [facility] [place] [facility] [address] [facility] [address] [place] [address] Norbert Green MD 07/31/2024 Telephone [facility] Anesthesia [address] [place] [address] Tammy Ledbetter NP 07/30/2024 Telephone [facility] Anesthesia [address] [place] [address] Tammy Ledbetter NP 07/28/2024 1:38 PM FORK LIFT MECHANIC Anesthesia Event [facility] Operating Room [address] [place] [address] FosterCoral MD Winter, Caleb Scott, NP 07/28/2024 12:55 PM FORK LIFT MECHANIC - 07/28/2024 4:05 PM FORK LIFT MECHANIC Surgery [facility] Operating Room [address] [place] [address] Jed Correa MD REVISION ARTHROPLASTY REVERSE TOTAL SHOULDER 07/28/2024 10:36 AM FORK LIFT MECHANIC - 07/29/2024 1:23 PM FORK LIFT MECHANIC Hospital Encounter [facility] [address] [place] [address] Jed Correa MD S/P reverse total shoulder arthroplasty, right (Primary Dx); Acute postoperative pain of right shoulder [G89.18, M25.511] Discharge Disposition: Discharge to home or self care 07/24/2024 Documentation [facility] Orthopaedic Surgery [address] [facility] 2nd Floor [address] [place] [phone] Kami Vasques RN 07/21/2024 9:30 AM FORK LIFT MECHANIC Pre-Admission Testing [facility] Center for Preoperative Assessment and Planning [facility] ([facility]) [address] [place] [phone] Preoperative testing (Primary Dx); Failure of arthroplasty, subsequent encounter from Last 3 Months Immunizations Immunization Administration Dates Next Due Influenza, Quadrivalent, Barbara l Culture-based MDCK, Preservative Free, Antibiotic Free, Intramuscular 04/11/2022 Influenza, Quadrivalent, Spl it, Intramuscular 05/05/2019,05/14/2018,06/14/2017,07/31 Influenza, Quadrivalent, Spl it, Preservative Free, Intramuscular 05/17/2021,05/03/2020 Influenza, Trivalent, IM (MDV) 05/23/2022,2020 Influenza, Trivalent, Preser vative Free, Intramuscular 04/27/2020 Tdap 01/09/2021 Surgical History Surgery Date Site/Laterality Comments HERNIA REPAIR REPLACEMENT TOTAL KNEE 07/15/2011 - 07/14/2012 Bilateral FOOT SURGERY 07/15/2011 - 07/14/2012 SECTION GASTROPLASTY 07/15/1976 - 07/14/1977 CHOLECYSTECTOMY 07/15/1979 - 07/14/1980 CARPAL TUNNEL RELEASE 07/15/2004 - 07/14/2005 x2 FOOT ARTHRODESIS, TRIPLE 07/15/2011 - 07/14/2012 TOTAL SHOULDER ARTHROPLASTY 07/15/2021 - 07/14/2022 TONSILECTOMY, ADENOIDECTOMY, BILATERAL MYRINGOTOMY AND TUBES 07/15/1968 - 07/14/1969 TYMPANOSTOMY TUBE PLACEMENT 06/14/2022 - 07/14/2022 BRAIN SURGERY November2022 JOINT REPLACEMENT SHOULDER ARTHROPLASTY 07/28/2024 Right revision Medical History Medical History Date Comments Hypertension History of kidney problems Ear problems Thyroid disease Atrial fibrillation (HCC) Hypothyroidism Osteoarthritis H/O urinary infection HL (hearing loss) Sleep apnea Paroxysmal atrial fibrillation (HCC) 01/04/2023 Otitis media Otitis externa CSF leak from ear Family History Medical History Relation Name Comments Hypertension Brother Heart disease Father Hypertension Father Heart disease Mother Hypertension Mother Colon cancer Paternal Grandmother Anesthesia problems Neg Hx Relation Name Status Comments Brother Father Mother Paternal Grandmother Social History Tobacco Use Types Packs/Day Years [...] on file Legal Sex Female 2:14 AM FORK LIFT MECHANIC Gender Identity Female 11/02/2022 12:36 PM CDT Sexual Orientation Straight 11/02/2022 12 :36 PM CDT Occupation Industry Job Start Date Job End Date Retired Not on file Not on file Not on file Obstetrics History Last Filed Vital Signs Vital Sign Reading Time Taken Comments Blood Pressure 159/85 09/07/2024 1:06 PM FORK LIFT MECHANIC Pulse 77 09/07/2024 1:06 PM FORK LIFT MECHANIC Temperature 36.9 C (98.5 F) 09/07/2024 1:06 PM FORK LIFT MECHANIC Respiratory Rate 16 07/29/2024 7:55 AM FORK LIFT MECHANIC Oxygen Saturation 96% 07/29/2024 7:55 AM FORK LIFT MECHANIC Inhaled Oxygen Concentration - - Weight 124.1 kg (273 lb 9.6 oz) 09/07/2024 1:06 PM FORK LIFT MECHANIC Height 157.5 cm (5' 2 ) 09/07/2024 1:06 PM FORK LIFT MECHANIC Body Mass Index 50.04 09/07/2024 1:06 PM FORK LIFT MECHANIC Plan of Treatment Health Maintenance Due Date Last Done Comments Breast Cancer Screening-Mammogram 1960 Cervical Cancer Screening 1960 Colon Cancer Screening-Colonoscopy 1960 Depression Screening 1960 Regular Well Visit/Exam 18-64 1978 Pneumococcal vaccine <65 (1 of 2 - PCV) 1979 Zoster Vaccine (1 of 2) 2010 Covid-19 Vaccine (6 2023-2 5 season) 2024 04/11/2022, 12/08/2021, 05/22/2021, Additional history exists Influenza Vaccine (#1) 2024 , 04/11/2022, 06/02/2021, Additional history exists DTaP/Tdap/Td Vaccine (2 - Td or Tdap) 01/09/2031 01/09/2021 Hepatitis B Screening Completed 09/14/2024 Hepatitis C Screening Completed 09/14/2024 Medical Devices Implanted Type Area Reporting Coordinator Device Identifier Shelf Expiration Date Model / Serial / Lot Total Joint Bilateral : Knee Plate & Screws Left: Foot Total Joint Right: Shoulder Integra CorNova Ramila Duragen Plus 7x5in Resorbable Onlay Regeneration Cranium Graft Dp-1057 - [id number] Implanted:Qty: 1 on 11/19/2022 by Zach Carrasco MD at [facility] Integra EcoScrapsciFanvibe Ramila [id number]-1057 / / [id number] Stitch Fix Craniomaxillofaci al [place] Neuro 3 1.5mm 4mm Self Drill Axial Stability Screw Bone Latex Free [id number] - [id number] Implanted:Qty: 9 on 11/19/2022 by Zach Carrasco MD at [facility] Left: Cranial [place] Craniomaxillofacial [id number] / / Dinorah Craniomaxillofaci al Mesh Dynamic Gold 510s269u.6mm Std Crnmxf Ti [id number] - [id number] Implanted:Qty: 1 on 11/19/2022 by Zach Carrasco MD at [facility] Left: Cranial Dinorah Craniomaxillofacial [id number] / / [employer] Aequalis Perform Reversed 5mm 38mm Peripheral Glenoid Screw [id number] - [id number] Implanted:Qty: 1 on 07/28/2024 by Jed Correa MD at [facility] Right: Shoulder Vega [employer] Inc [id number] / / [employer] Aequalis Perform Reversed 5mm 18mm Peripheral Glenoid Screw [id number] - [id number] Implanted:Qty: 1 on 07/28/2024 by Jed Correa MD at [facility] Right: Shoulder V[employer] Inc [id number] / / [employer] Tornier Aequalis Perform Od36 Mm Reverse Shoulder +2 Mm Inferior Offset Sphere Glenoid [id number] - [id number] - [id number] Implanted:Qty: 1 on 07/28/2024 by Jed Correa MD at [facility] Right: Shoulder Vega Medical Technology Inc 01/13/2029 [id number] / [id number] / [employer] R1 Reverse Shoulder System Humeral Spacer Implant (+12mm) Implanted:Qty: 1 on 07/28/2024 by Jed Correa MD at [facility] Right: Shoulder CATALYST ORTHOSCIENCE 11/07/2026 [id number] Description:Approve custom c ase. Misc code used [employer] R1 Reverse Shoulder System Spacer Locking Screw Implant Implanted:Qty: 1 on 07/28/2024 by Jed Correa MD at [facility] Right: Shoulder [employer]ENCE 12/22/2026 [id number] Description:Approve custom c ase. Misc code used [employer] R1 Reverse Shoulder System Ring Sc Poly Insert Implant Size 36+4 Implanted:Qty: 1 on 07/28/2024 by Jed Correa MD at [facility] Right: Shoulder [employer] ORTHOSCIENCE 03/04/2029 [id number] [id number] / / [id number] Description:Approve custom c ase misc code used R&R Sy[employer]Tec Od25 Mm Full Wedge Augment Shoulder 15 D Baseplate Glenoid [id number] - [id number] - [id number] Implanted:Qty: 1 on 07/28/2024 by Jed Correa MD at [facility] Right: Shoulder R&R Sy-Tec 06/10/2029 [id number] / [id number] / R&R Sy-Tec Post Press Fit Glenoid Threaded Long Aequalis Perform 15mm [id number] - [id number] - [id number] Implanted:Qty: 1 on 07/28/2024 by Jed Correa MD at [facility] Right: Shoulder Triptease Inc 08/17/2028 [id number] / [id number] / R&R Sy-Tec Aequalis Perform Reversed 5mm 34mm Peripheral Glenoid Screw [id number] - [id number] Implanted:Qty: 2 on 07/28/2024 by Jed Correa MD at [facility] Right: Shoulder Activity Rocket Technology VenueAgent [id number] / / Procedures Procedure Name Priority Date/Time Associated Diagnosis Comments EGFR Routine 09/14/2024 12:38 PM FORK LIFT MECHANIC Stage 3b chronic kidney disease (HCC) DIFFERENTIAL AUTO Routine 09/14/2024 12:38 PM FORK LIFT MECHANIC Stage 3b chronic kidney disease (HCC) RENAL FUNCTION PANEL Routine 09/14/2024 12:38 PM FORK LIFT MECHANIC Stage 3b chronic kidney disease (HCC) CYSTATIN C Routine 09/14/2024 12:38 PM FORK LIFT MECHANIC Stage 3b chronic kidney disease (HCC) PROTEIN ELECTROPHORESIS, WITH REFLEX, SERUM Routine 09/14/2024 12:38 PM FORK LIFT MECHANIC Stage 3b chronic kidney disease (HCC) IMMUNOGLOBULIN FREE LIGHT CHAINS Routine 09/14/2024 12:38 PM FORK LIFT MECHANIC Stage 3b chronic kidney disease (HCC) JONES SCREEN W/REFLEX CAROLE+DSDNA Routine 09/14/2024 12:38 PM FORK LIFT MECHANIC Stage 3b chronic kidney disease (HCC) C3 COMPLEMENT Routine 09/14/2024 12:38 PM FORK LIFT MECHANIC Stage 3b chronic kidney disease (HCC) C4 COMPLEMENT Routine 09/14/2024 12:38 PM FORK LIFT MECHANIC Stage 3b chronic kidney disease (HCC) CBC WITH AUTO DIFFERENTIAL Routine 09/14/2024 12:38 PM FORK LIFT MECHANIC Stage 3b chronic kidney disease (HCC) IRON PROFILE W/ IBC Routine 09/14/2024 12:38 PM FORK LIFT MECHANIC Stage 3b chronic kidney disease (HCC) FERRITIN Routine 09/14/2024 12:38 PM FORK LIFT MECHANIC Stage 3b chronic kidney disease (HCC) HIV 1/2 ANTIBODY PLUS P24 ANTIGEN Routine 09/14/2024 12:38 PM FORK LIFT MECHANIC Stage 3b chronic kidney disease (HCC) HEPATITIS C ANTIBODY Routine 09/14/2024 12:38 PM FORK LIFT MECHANIC Stage 3b chronic kidney disease (HCC) HEPATITIS B SURFACE ANTIBODY (IMMUNE STATUS) Routine 09/14/2024 12:38 PM FORK LIFT MECHANIC Stage 3b chronic kidney disease (HCC) HEPATITIS B SURFACE ANTIGEN Routine 09/14/2024 12:38 PM FORK LIFT MECHANIC Stage 3b chronic kidney disease (HCC) HEPATITIS B CORE ANTIBODY, TOTAL Routine 09/14/2024 12:38 PM FORK LIFT MECHANIC Stage 3b chronic kidney disease (HCC) XR SHOULDER RIGHT 2 OR MORE VIEWS Schedule Routine, Read Routine (OP Routine) 09/14/2024 10:47 AM FORK LIFT MECHANIC S/P reverse total shoulder arthroplasty, right PROTEIN / CREATININE RATIO, URINE, RANDOM Routine 09/07/2024 2:43 PM FORK LIFT MECHANIC Stage 3 chronic kidney disease, unspecified whether stage 3a or 3b CKD (HCC) ALBUMIN CREATININE RATIO, URINE Routine 09/07/2024 2:43 PM FORK LIFT MECHANIC Stage 3 chronic kidney disease, unspecified whether stage 3a or 3b CKD (HCC) POCT URINALYSIS DIPSTICK Routine 09/07/2024 1:54 PM FORK LIFT MECHANIC S/P reverse total shoulder arthroplasty, right Stage 3 chronic kidney disease, unspecified whether stage 3a or 3b CKD (HCC) XR SHOULDER RIGHT 2 OR MORE VIEWS Schedule Routine, Read Routine (OP Routine) 08/12/2024 11:45 AM FORK LIFT MECHANIC S/P orthopedic surgery, follow-up exam EGFR Routine 07/29/2024 9:54 AM FORK LIFT MECHANIC BASIC METABOLIC PANEL Routine 07/29/2024 9:54 AM FORK LIFT MECHANIC EGFR Timed 07/29/2024 5:34 AM FORK LIFT MECHANIC BASIC METABOLIC PANEL Timed 07/29/2024 5:34 AM FORK LIFT MECHANIC HEMOGLOBIN AND HEMATOCRIT Timed 07/29/2024 5:34 AM FORK LIFT MECHANIC XR SHOULDER RIGHT 2 OR MORE VIEWS IP Routine 07/28/2024 6:07 PM FORK LIFT MECHANIC MYCOLOGY (FUNGAL) CULTURE AND STAIN Routine 07/28/2024 4:19 PM FORK LIFT MECHANIC MYCOBACTERIOLOGY AFB CULTURE AND ACID-FAST STAIN Routine 07/28/2024 4:19 PM FORK LIFT MECHANIC TISSUE AEROBIC AND ANAEROBIC CULTURE AND GRAM STAIN Routine 07/28/2024 4:19 PM FORK LIFT MECHANIC MYCOLOGY (FUNGAL) CULTURE AND STAIN Routine 07/28/2024 4:18 PM FORK LIFT MECHANIC MYCOBACTERIOLOGY AFB CULTURE AND ACID-FAST STAIN Routine 07/28/2024 4:18 PM FORK LIFT MECHANIC TISSUE AEROBIC AND ANAEROBIC CULTURE AND GRAM STAIN Routine 07/28/2024 4:18 PM FORK LIFT MECHANIC MYCOBACTERIOLOGY AFB CULTURE AND ACID-FAST STAIN Routine 07/28/2024 4:18 PM FORK LIFT MECHANIC MYCOLOGY (FUNGAL) CULTURE AND STAIN Routine 07/28/2024 4:18 PM FORK LIFT MECHANIC TISSUE AEROBIC AND ANAEROBIC CULTURE AND GRAM STAIN Routine 07/28/2024 4:18 PM FORK LIFT MECHANIC MYCOLOGY (FUNGAL) CULTURE AND STAIN Routine 07/28/2024 4:17 PM FORK LIFT MECHANIC MYCOBACTERIOLOGY AFB CULTURE AND ACID-FAST STAIN Routine 07/28/2024 4:17 PM FORK LIFT MECHANIC TISSUE AEROBIC AND ANAEROBIC CULTURE AND GRAM STAIN Routine 07/28/2024 4:17 PM FORK LIFT MECHANIC MYCOLOGY (FUNGAL) CULTURE AND STAIN Routine 07/28/2024 4:15 PM FORK LIFT MECHANIC MYCOBACTERIOLOGY AFB CULTURE AND ACID-FAST STAIN Routine 07/28/2024 4:15 PM FORK LIFT MECHANIC TISSUE AEROBIC AND ANAEROBIC CULTURE AND GRAM STAIN Routine 07/28/2024 4:15 PM FORK LIFT MECHANIC WI AN PROCEDURE PLACEHOLDER Routine 07/28/2024 2:43 PM FORK LIFT MECHANIC WI AN ELECTIVE ENDOTRACHEAL AIRWAY Routine 07/28/2024 2:43 PM FORK LIFT MECHANIC WI AN PROCEDURE PLACEHOLDER Routine 07/28/2024 1:53 PM FORK LIFT MECHANIC WI AN PROCEDURE PLACEHOLDER Routine 07/28/2024 1:52 PM FORK LIFT MECHANIC BW IP ANE LDA PERIPHERAL NERVE CATHETER Routine 07/28/2024 1:52 PM FORK LIFT MECHANIC REMOVAL HARDWARE SHOULDER 07/28/2024 1:38 PM FORK LIFT MECHANIC Failure of arthroplasty, subsequent encounter REVISION ARTHROPLASTY REVERSE TOTAL SHOULDER 07/28/2024 1:38 PM FORK LIFT MECHANIC Failure of arthroplasty, subsequent encounter EGFR Routine 07/21/2024 10:29 AM FORK LIFT MECHANIC Failure of arthroplasty, subsequent encounter DIFFERENTIAL AUTO Routine 07/21/2024 10:29 AM FORK LIFT MECHANIC Preoperative testing CBC WITH AUTO DIFFERENTIAL Routine 07/21/2024 10:29 AM FORK LIFT MECHANIC Preoperative testing TYPE AND SCREEN 14 DAY Routine 10:29 AM FORK LIFT MECHANIC Preoperative testing COMPREHENSIVE METABOLIC PANEL Routine 07/21/2024 10:29 AM FORK LIFT MECHANIC Failure of arthroplasty, subsequent encounter from Last 3 Months Results * JONES screen w/rflx CAROLE+dsDNA (09/14/2024 12:38 PM FORK LIFT MECHANIC) JONES Negative Comment: Interpretive Data Normal range [...] on 2020. Blood 09/14/2024 12:3 8 PM FORK LIFT MECHANIC 09/14/2024 1:01 PM FORK LIFT MECHANIC us Sirisha Bernard MD LAB BLOOD ORDERABLES Fin al Result [facility] Department [place] [address] * (ABNORMAL) eGFR (09/14/2024 12:38 PM FORK LIFT MECHANIC) eGFR 30(L) >=60 mL/min/1. 73 m2 Comment: [...] of Race in Diagnosing Kidney Disease, JASN 202). The CKD-EPI equation should not be used for patients with unstable renal function and has not been validated in children and those over 70. Current interpretive data was last reviewed 2021. Blood 09/14/2024 12:3 8 PM FORK LIFT MECHANIC 09/14/2024 1:09 PM FORK LIFT MECHANIC us Sirisha Bernard MD LAB BLOOD ORDERABLES Fin al Result [facility] Department [place] [address] * Differential, auto (09/14/2024 12:38 PM FORK LIFT MECHANIC) Pathologist [facility] Neutrophil abs 3.1 1.5 - 6.5 K/cumm Imm gran abs 0.0 0.0 - 0.1 K/cumm [facility] Lymphocyte abs 1.7 0.8 - 3.3 K/cumm [facility] Monocyte abs 0.7 0.2 - 0.8 K/cumm [facility] Eosinophil abs 0.2 0.0 - 0.5 K/cumm [facility] Basophil abs 0.0 0.0 - 0.1 K/cumm [facility] Neutrophil pct 54.4 % [facility] Comment: Interpretive Data Percent cell count reference ranges are not reported, since discordance with absolute values may lead to misinterpretation of CBC data. Current Interpretive Data was last revised on 2017. Imm gran pct 0.4 % [facility] Comment: Interpretive Data Percent cell count reference ranges are not reported, since discordance with absolute values may lead to misinterpretation of CBC data. Current Interpretive Data was last revised on 2017. Lymphocyte pct 29.3 % [facility] Comment: Interpretive Data Percent cell count reference ranges are not reported, since discordance with absolute values may lead to misinterpretation of CBC data. Current Interpretive Data was last revised on 2017. Monocyte pct 11.5 % [facility] Comment: Interpretive Data Percent cell count reference ranges are not reported, since discordance with absolute values may lead to misinterpretation of CBC data. Current Interpretive Data was last revised on 2017. Eosinophil pct 3.7 % [facility] Comment: Interpretive Data Percent cell count reference ranges are not reported, since discordance with absolute values may lead to misinterpretation of CBC data. Current Interpretive Data was last revised on 2017. Basophil pct 0.7 % [facility] Comment: Interpretive Data Percent cell count reference ranges are not reported, since discordance with absolute values may lead to misinterpretation of CBC data. Current Interpretive Data was last revised on 2017. Blood 09/14/2024 12:3 8 PM FORK LIFT MECHANIC 09/14/2024 1:01 PM FORK LIFT MECHANIC Sirisha Bernard MD LAB BLOOD ORDERABLES Fin al Result Performing Organization Address [facility] [[email or web address]] Co de Phone Number [facility] Department [place] [address] * C4 complement (09/14/2024 12:38 PM FORK LIFT MECHANIC) Complement C4 25.3 10.0 - 40.0 mg/dL Blood 09/14/2024 12:3 8 PM FORK LIFT MECHANIC 09/14/2024 1:01 PM FORK LIFT MECHANIC us Sirisha Bernard MD LAB BLOOD ORDERABLES Fin al Result Performing Organization Address [facility] [[email or web address]] Co de Phone Number [facility] Department [place] [address] * (ABNORMAL) Immunoglobulin free light chains (09/14/2024 12:38 PM FORK LIFT MECHANIC) Pathologist [facility] [place]/Lambda ratio [facility] 1.48 0.26 - 1.65 Comment: Interpretive Data The Binding Site FreeLite assay procedure was used. Results from different manufacturers or methods may not be comparable. Serial testing should be performed using the same methods and instrumentation. Current Interpretive Data was last revised on 2023. [place] free light chain [facility] 7.23(H) 0.33 - 1.94 mg/dL [facility] Comment: Interpretive Data The Binding Site FreeLite assay procedure was used. Results from different manufacturers or methods may not be comparable. Serial testing should be performed using the same methods and instrumentation. Current Interpretive Data was last revised on 2023. Lambda free light chain [facility] 4.87(H) 0.57 - 2.63 mg/dL [facility] Comment: Interpretive Data The Binding Site FreeLite assay procedure was used. Results from different manufacturers or methods may not be comparable. Serial testing should be performed using the same methods and instrumentation. Current Interpretive Data was last revised on 2023. Blood 09/14/2024 12:3 8 PM FORK LIFT MECHANIC 09/14/2024 1:01 PM FORK LIFT MECHANIC Sirisha Bernard MD LAB BLOOD ORDERABLES Fin al Result [facility] Department [place] [address] * (ABNORMAL) Iron profile w/ IBC (09/14/2024 12:38 PM FORK LIFT MECHANIC) Pathologist [facility] Iron 111 35 - 145 mcg/dL TIBC 241(L) 250 - 400 mcg/dL [facility] Transferrin saturation 46 20 - 50 % [facility] Blood 09/14/2024 12:3 8 PM FORK LIFT MECHANIC 09/14/2024 1:01 PM FORK LIFT MECHANIC Sirisha Bernard MD LAB BLOOD ORDERABLES Fin al Result Performing Organization Address [facility] [place] [address] * HIV 1/2 Antibody plus p24 Antigen Blood (09/14/2024 12:38 PM FORK LIFT MECHANIC) HIV 1/2 ab + p24 ag Nonreactive Nonreactive Comment:Nonreactive for HIV- 1 antigen and HIV-1/HIV-2 antibodies. No laboratory evidence of HIV infection. If acute HIV infection is suspected, consider testing for HIV-1 RNA. Current interpretive data was last revised on 22. Blood 09/14/2024 12:3 8 PM FORK LIFT MECHANIC 09/14/2024 1:01 PM FORK LIFT MECHANIC Sirisha Bernard MD LAB MICROBIOLOGY - GENER AL ORDERABLES Final Result Performing Organization Address [facility] Phone Number [facility] [place] [address] * (ABNORMAL) Cystatin C (09/14/2024 12:38 PM FORK LIFT MECHANIC) Pathologist [facility] [place] Cystatin C 2.33(H) 0.60 - 1.20 mg/L Comment: Interpretive Data Cystatin C concentrations vary widely in the first month of life, particularly in pre-term infants. Concentrations gradually diminish to adult levels by 1 year of life. Concentrations tend to rise with diminishing renal function in individuals greater than 60 years of age. Current Interpretive Data was last revised on 2020. Testing performed by: [facility] [place], [place]., [address] Blood 09/14/2024 12:3 8 PM FORK LIFT MECHANIC 09/14/2024 2:52 PM FORK LIFT MECHANIC Sirisha Bernard MD LAB BLOOD ORDERABLES Fin al Result Performing Organization Address [facility] [[email or web address]] Co de Phone Number [facility] [place] [address] * (ABNORMAL) CBC with auto differential (09/14/2024 12:38 PM FORK LIFT MECHANIC) [facility] WBC 5.7 3.8 - 9.9 K/cumm Hgb 11.5(L) 11.9 - 15.5 g/dL [facility] Hct 34.9(L) 35.6 - 45.5 % [facility] Plt 241 150 - 400 K/cumm [facility] MPV 9.7 9.1 - 12.3 fL [facility] RBC 3.68(L) 3.90 - 5.20 M/cumm [facility] MCV 94.8 81.3 - 96.4 fL [facility] MCH 31.3 27.1 - 33.3 pg [facility] MCHC 33.0 32.3 - 35.7 g/dL [facility] RDW CV 13.6 11.1 - 14.9 % [facility] RDW SD 47.8 35.7 - 48.1 fL [facility] NRBC abs 0.00 0.00 - 0.01 K/cumm [facility] Blood 09/14/2024 12:3 8 PM FORK LIFT MECHANIC 09/14/2024 1:01 PM FORK LIFT MECHANIC us Sirisha Bernard MD LAB BLOOD ORDERABLES Fin al Result [facility] Department [place] [address] * Hepatitis C antibody Blood (09/14/2024 12:38 PM FORK LIFT MECHANIC) [facility] Hep C Ab Nonreactive Nonreactive Comment:Antibodies to HCV no t detected. Does NOT exclude the possibility of recent exposure to HCV. Current interpretive data was last revised on 22 Blood 09/14/2024 12:3 8 PM FORK LIFT MECHANIC 09/14/2024 1:01 PM FORK LIFT MECHANIC us Sirisha Bernard MD LAB MICROBIOLOGY - GENER AL ORDERABLES Final Result Performing Organization Address [facility] [place] [address] * Hepatitis B core antibody, total Blood (09/14/2024 12:38 PM FORK LIFT MECHANIC) Hep B core IgG/IgM Nonreactive Nonreactive Blood 09/14/2024 12:3 8 PM FORK LIFT MECHANIC 09/14/2024 1:01 PM FORK LIFT MECHANIC Sirisha Bernard MD LAB MICROBIOLOGY - GENER AL ORDERABLES Final Result Performing Organization Address [facility] [place] [address] * Hepatitis B surface antibody (immune status) Blood (09/14/2024 12:38 PM FORK LIFT MECHANIC) HBsAb (immune status) Nonreactive Comment:This result is consi stent with a lack of immunity to Hepatitis B Virus when used in the setting of routine screening. Current interpretative data was last revised on 22 Blood 09/14/2024 12:3 8 PM FORK LIFT MECHANIC 09/14/2024 1:01 PM FORK LIFT MECHANIC Sirisha Bernard MD LAB MICROBIOLOGY - GENER AL ORDERABLES Final Result Performing Organization Address [facility] de Phone Number [facility] [place] [address] * Hepatitis B Surface Antigen Blood (09/14/2024 12:38 PM FORK LIFT MECHANIC) HepBsAg Nonreactive Nonreactive Blood 09/14/2024 12:3 8 PM FORK LIFT MECHANIC 09/14/2024 1:01 PM FORK LIFT MECHANIC Sirisha Bernard MD LAB MICROBIOLOGY - GENER AL ORDERABLES Final Result Performing Organization Address [facility] [[email or web address]] Co de Phone Number [facility] [place] [address] * C3 complement (09/14/2024 12:38 PM FORK LIFT MECHANIC) [facility] Complement C3 164.0 90.0 - 180.0 mg/dL Blood 09/14/2024 12:3 8 PM FORK LIFT MECHANIC 09/14/2024 1:01 PM FORK LIFT MECHANIC Sirisha Bernard MD LAB BLOOD ORDERABLES Fin al Result Performing Organization Address [facility] [[email or web address]] Co de Phone Number [facility] [place] [address] * Protein electrophoresis with reflex, serum with interpretation (09/14/2024 12:38 PM FORK LIFT MECHANIC) Pathologist [facility] [place] Protein, sr 7.2 6.2 - 8.2 g/dL Albumin 4.1 3.2 - 5.0 g/dL [facility] Alpha-1 globulin 0.3 0.2 - 0.4 g/dL [facility] Alpha-2 globulin 0.8 0.5 - 1.0 g/dL [facility] Beta-1 globulin 0.4 0.3 - 0.6 g/dL [facility] Beta-2 globulin 0.5 0.2 - 0.6 g/dL [facility] Gamma globulin 1.1 0.5 - 1.7 g/dL [facility] SPEP interp Please see comment [facility] Comment: No apparent monoclonal peak Reviewed and signed by Serena Styles MD, PhD 09/15/2024 Blood 09/14/2024 12:3 8 PM FORK LIFT MECHANIC 09/14/2024 1:01 PM FORK LIFT MECHANIC Sirisha Bernard MD LAB BLOOD ORDERABLES Fin al Result Performing Organization Address City/[facility] [[email or web address]] Co de Phone Number [facility] [place] [address] * Ferritin (09/14/2024 12:38 PM FORK LIFT MECHANIC) Ferritin 48 13 - 150 ng/mL Blood 09/14/2024 12:3 8 PM FORK LIFT MECHANIC 09/14/2024 1:01 PM FORK LIFT MECHANIC us Sirisha Bernard MD LAB BLOOD ORDERABLES Fin al Result [facility] Department [place] [address] * (ABNORMAL) Renal function panel (09/14/2024 12:38 PM FORK LIFT MECHANIC) Sodium 141 135 - 145 mmol/L Potassium, pl 4.6 3.3 - 4.9 mmol/L [facility] Chloride 106 97 - 110 mmol/L [facility] CO2 24 22 - 32 mmol/L [facility] Anion gap 11 2 - 15 mmol/L [facility] BUN 32(H) 6 - 25 mg/dL [facility] Creatinine 1.84(H) 0.60 - 1.10 mg/dL [facility] Glucose 81 70 - 199 mg/dL [facility] Comment: Interpretive Data Fasting glucose >/= 126 [...] 2022. Calcium 10.6(H) 8.5 - 10.3 mg/dL [facility] Phosphorus, pl 2.7 2.3 - 4.5 mg/dL [facility] Albumin 4.2 3.5 - 5.0 g/dL [facility] Blood 09/14/2024 12:3 8 PM FORK LIFT MECHANIC 09/14/2024 1:01 PM FORK LIFT MECHANIC us Sirisha Bernard MD LAB BLOOD ORDERABLES Fin al Result [facility] Department [place] [address] * XR Shoulder Right 2+ View (09/14/2024 10:47 AM FORK LIFT MECHANIC) Anatomical Region Laterality Modality Upper Extremities, Shoulder Right Comp uted Radiography 09/14/2024 3:05 PM FORK LIFT MECHANIC Impressions 09/14/2024 6:19 PM FORK LIFT MECHANIC 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 Dictated by: George Marquez MD PHD The radiology attending physician has personally reviewed this study, and had reviewed and/or edited this written report and agrees with it. Electronically signed by: Keisha Larios MD Narrative 09/14/2024 6:19 PM FORK LIFT MECHANIC EXAMINATION: XR SHOULDER RIGHT 2+ VIEWS HISTORY: [...] it. Electronically signed by: Keisha Larios MD Jed Correa MD IMG XR PROCEDURES Final Result * (ABNORMAL) Protein / creatinine ratio, urine, random (09/07/2024 2:43 PM FORK LIFT MECHANIC) Protein, ur, quant 206.8 mg/dL Comment: Interpretive Data No reference range established. Current interpretive data was last revised 2018. Creatinine Ur 88.8 mg/dL [facility] Comment: Interpretive Data No reference range established. Current interpretive data was last revised 2018. Protein/creatinin e ratio 2,292.7(H ) 0.0 - 180.0 mg/g CR [facility] Urine 09/07/2024 2:43 PM FORK LIFT MECHANIC 09/07/2024 4:28 PM FORK LIFT MECHANIC Sirisha Bernard MD LAB URINE ORDERABLES Fin al Result [facility] Department [place] [address] * (ABNORMAL) Albumin Creatinine Ratio, Urine (09/07/2024 2:43 PM FORK LIFT MECHANIC) Pathologist [facility] [place] Albumin Ur 1,552.8 mg/L Comment: Interpretive Data No reference range established. Current interpretive data was last revised 2018. Creatinine Ur 88.8 mg/dL [facility] Comment: Interpretive Data No reference range established. Current interpretive data was last revised 2018. Albumin Creatinine Ratio, Ur 1,749(H) 1 - 29 mg/g [facility] Urine 09/07/2024 2:43 PM FORK LIFT MECHANIC 09/07/2024 4:28 PM FORK LIFT MECHANIC us Sirisha Bernard MD LAB URINE ORDERABLES Fin al Result [facility] Department [place] [address] * (ABNORMAL) POCT urinalysis dipstick (09/07/2024 1:54 PM FORK LIFT MECHANIC) Glucose, ur, POC Negative Negative MG/DL Bilirubin, ur, POC Negative Negative, Small, Moderate, Large Ketones, ur, POC Negative Negative Specific [place], POC 1.030 1.003 - 1.030 Comment:>= Blood, ur, POC Non-hemolyze d, trace(A) Negative pH, ur, POC 6.0 5.0 - 8.0 Protein, ur, POC 3+(A) Negative Urobilinogen, urine, POC 0.2 0.2 - 1.0 mg/dL Nitrite, ur, POC Negative Negative Leukocytes, ur, POC Trace(A) Negative Lot Number [id number] Urine 09/07/2024 1:54 PM FORK LIFT MECHANIC Tim Malik MD POINT OF CARE TEST ORDERABLES Final Result * XR Shoulder Right 2+ View (08/12/2024 11:45 AM FORK LIFT MECHANIC) Anatomical Region Laterality Modality Upper Extremities, Shoulder Right Digi chepe Radiography 08/12/2024 3:31 PM FORK LIFT MECHANIC Narrative 08/12/2024 3:31 PM FORK LIFT MECHANIC EXAMINATION: XR SHOULDER RIGHT 2 OR MORE [...] Result * (ABNORMAL) eGFR (07/29/2024 9:54 AM FORK LIFT MECHANIC) eGFR 37(L) >=60 mL/min/1. 73 m2 Comment: [...] last reviewed 2021. Blood 07/29/2024 9:54 AM FORK LIFT MECHANIC 07/29/2024 10:01 AM FORK LIFT MECHANIC us Mattie Huber TIMBER [employer]BER LAB BLOOD ORDERABLES Final Result [facility] Department [place] [address] * (ABNORMAL) Basic metabolic panel (07/29/2024 9:54 AM FORK LIFT MECHANIC) Sodium 138 135 - 145 mmol/L Potassium, pl 4.6 3.3 - 4.9 mmol/L [facility] Chloride 106 97 - 110 mmol/L [facility] CO2 20(L) 22 - 32 mmol/L [facility] Anion gap 12 2 - 15 mmol/L [facility] BUN 30(H) 6 - 25 mg/dL [facility] Creatinine 1.57(H) 0.60 - 1.10 mg/dL [facility] Glucose 136 70 - 199 mg/dL [facility] Comment: Interpretive Data Fasting glucose >/= 126 [...] 2022. Calcium 9.3 8.5 - 10.3 mg/dL [facility] Blood 07/29/2024 9:54 AM FORK LIFT MECHANIC 07/29/2024 10:01 AM FORK LIFT MECHANIC us Mattie Huber NP LAB BLOOD ORDERABLES Final Result [facility] Department [place] [address] * (ABNORMAL) eGFR (07/29/2024 5:34 AM FORK LIFT MECHANIC) eGFR 36(L) >=60 mL/min/1. 73 m2 Comment: [...] last reviewed 2021. Blood 07/29/2024 5:34 AM FORK LIFT MECHANIC 07/29/2024 5:46 AM FORK LIFT MECHANIC Martinez Contreras MD LAB BLOOD ORDERABLES Fi nal Result Performing Organization Address City/[facility] [[email or web address]] Co de Phone Number [facility] [place] [address] * (ABNORMAL) Hemoglobin and hematocrit (07/29/2024 5:34 AM FORK LIFT MECHANIC) Pathologist [facility] [place] Hgb 10.3(L) 11.9 - 15.5 g/dL Hct 32.2(L) 35.6 - 45.5 % [facility] Blood 07/29/2024 5:34 AM FORK LIFT MECHANIC 07/29/2024 5:46 AM FORK LIFT MECHANIC Narrative [facility] - 07/29/2024 6:01 AM FORK LIFT MECHANIC change to CBC when needed Martinez Contreras MD LAB BLOOD ORDERABLES Fi nal Result Performing Organization Address City/[facility] [[email or web address]] Co de Phone Number [facility] Department [place] [address] * (ABNORMAL) Basic metabolic panel (07/29/2024 5:34 AM FORK LIFT MECHANIC) Sodium 137 135 - 145 mmol/L Potassium, pl 5.1(H) 3.3 - 4.9 mmol/L [facility] Chloride 109 97 - 110 mmol/L [facility] CO2 20(L) 22 - 32 mmol/L [facility] Anion gap 8 2 - 15 mmol/L [facility] BUN 31(H) 6 - 25 mg/dL [facility] Creatinine 1.59(H) 0.60 - 1.10 mg/dL [facility] Glucose 108 70 - 199 mg/dL [facility] Comment: Interpretive Data Fasting glucose >/= 126 [...] 2022. Calcium 9.1 8.5 - 10.3 mg/dL [facility] Blood 07/29/2024 5:34 AM FORK LIFT MECHANIC 07/29/2024 5:46 AM FORK LIFT MECHANIC Narrative [facility] - 07/29/2024 6:19 AM FORK LIFT MECHANIC Daily Martinez Contreras MD LAB BLOOD ORDERABLES Fi nal Result [facility] Department [place] [address] * XR Shoulder Right 2+ View (07/28/2024 6:07 PM FORK LIFT MECHANIC) Anatomical Region Laterality Modality Upper Extremities, Shoulder Right Comp uted Radiography 07/29/2024 6:27 AM FORK LIFT MECHANIC Impressions 07/29/2024 6:27 AM FORK LIFT MECHANIC Revision reverse total right glenohumeral arthroplasty in expected position. Electronically signed by: Dino Rajan M.D. Narrative 07/29/2024 6:27 AM FORK LIFT MECHANIC XR SHOULDER RIGHT 2 OR MORE VIEWS [...] stain Tissue Shoulder, right (07/28/2024 4:19 PM FORK LIFT MECHANIC) Direct Specimen Exam Stain: Rare polymorphonuclear leukocytes seen. No organisms seen. Report Final Report: No growth [facility] Tissue (Shoulder, right) 07/28/2024 4:19 PM FORK LIFT MECHANIC 07/28/2024 6:28 PM FORK LIFT MECHANIC Narrative [facility] - 08/07/2024 8:59 AM FORK LIFT MECHANIC Right humerus Testing performed by [facility] ([phone]) Specimens submitted from normally sterile body sites [...] LAB MICROBIOLOGY - GENERAL ORDERABLES Final Result [facility] Department [place] [address] * Mycology (fungal) culture and stain Tissue Shoulder, right (07/28/2024 4:19 PM FORK LIFT MECHANIC) Direct Specimen Exam Stain: No Fungal elements seen. Report Final Report: No growth of fungus [facility] Tissue (Shoulder, right) 07/28/2024 4:19 PM FORK LIFT MECHANIC 07/28/2024 6:28 PM FORK LIFT MECHANIC Narrative [facility] - 08/25/2024 7:38 AM FORK LIFT MECHANIC Right humerus Testing performed by [facility] ([phone]). Jed Correa MD LAB MICROBIOLOGY - GENERAL ORDERABLES Final Result Performing Organization Address City/[facility]/ZIP Co de Phone Number [facility] Department [place] [address] * Mycobacteriology (AFB) culture and acid-fast stain Tissue Shoulder, right (07/28/2024 4:19 PM FORK LIFT MECHANIC) [facility] Direct Specimen Exam Stain: No Acid-fast bacilli seen Report Final Report: No growth of acid-fast bacilli [facility] Tissue (Shoulder, right) 07/28/2024 4:19 PM FORK LIFT MECHANIC 07/28/2024 6:28 PM FORK LIFT MECHANIC Narrative [facility] - 09/28/2024 2:20 PM CDT Right humerus Testing performed by [facility] ([phone]). Jed Correa MD LAB MICROBIOLOGY - GENERAL ORDERABLES Final Result Performing Organization Address City/[facility]/ZIP Co de Phone Number [facility] Department [place] [address] * Tissue aerobic and anaerobic culture and gram stain Tissue Shoulder, right (07/28/2024 4:18 PM FORK LIFT MECHANIC) [facility] Direct Specimen Exam Stain: No polymorphonuclear leukocytes seen. No organisms seen. Report Final Report: No growth [facility] Tissue (Shoulder, right) 07/28/2024 4:18 PM FORK LIFT MECHANIC 07/28/2024 6:25 PM FORK LIFT MECHANIC Narrative [facility] - 08/07/2024 9:00 AM FORK LIFT MECHANIC Right anterior capsule Testing performed by [facility] ([phone]) Specimens submitted from normally sterile body sites [...] GENERAL ORDERABLES Final Result Performing Organization Address City/[facility] [[email or web address]] Co de Phone Number [facility] [place] [address] * Tissue aerobic and anaerobic culture and gram stain Tissue Shoulder, right (07/28/2024 4:18 PM FORK LIFT MECHANIC) Direct Specimen Exam Stain: Rare polymorphonuclear leukocytes seen. No organisms seen. Report Final Report: No growth [facility] Tissue (Shoulder, right) 07/28/2024 4:18 PM FORK LIFT MECHANIC 07/28/2024 6:26 PM FORK LIFT MECHANIC Narrative [facility] - 08/07/2024 9:00 AM FORK LIFT MECHANIC Right glenoid Testing performed by [facility] ([phone]) Specimens submitted from normally sterile body sites [...] GENERAL ORDERABLES Final Result Performing Organization Address City/[facility] [[email or web address]] Co de Phone Number [facility] [place] [address] * Mycology (fungal) culture and stain Tissue Shoulder, right (07/28/2024 4:18 PM FORK LIFT MECHANIC) Direct Specimen Exam Stain: No Fungal elements seen. Report Final Report: No growth of fungus [facility] Tissue (Shoulder, right) 07/28/2024 4:18 PM FORK LIFT MECHANIC 07/28/2024 6:25 PM FORK LIFT MECHANIC Narrative [facility] - 08/25/2024 7:37 AM FORK LIFT MECHANIC Right anterior capsule Testing performed by [facility] ([phone]). Jed Correa MD LAB MICROBIOLOGY - GENERAL ORDERABLES Final Result Performing Organization Address [facility]/ZIP Co de Phone Number [facility] [place] [address] * Mycology (fungal) culture and stain Tissue Shoulder, right (07/28/2024 4:18 PM FORK LIFT MECHANIC) Direct Specimen Exam Stain: No Fungal elements seen. Report Final Report: No growth of fungus [facility] Tissue (Shoulder, right) 07/28/2024 4:18 PM FORK LIFT MECHANIC 07/28/2024 6:26 PM FORK LIFT MECHANIC Narrative [facility] - 08/25/2024 7:37 AM FORK LIFT MECHANIC Right glenoid Testing performed by [facility] ([phone]). Jed Correa MD LAB MICROBIOLOGY - GENERAL ORDERABLES Final Result [facility] [place] [address] * Mycobacteriology (AFB) culture and acid-fast stain Tissue Shoulder, right (07/28/2024 4:18 PM FORK LIFT MECHANIC) Direct Specimen Exam Stain: No Acid-fast bacilli seen Report Final Report: No growth of acid-fast bacilli [facility] Tissue (Shoulder, right) 07/28/2024 4:18 PM FORK LIFT MECHANIC 07/28/2024 6:25 PM FORK LIFT MECHANIC Narrative [facility] - 09/28/2024 2:20 PM CDT Right anterior capsule Testing performed by [facility] ([phone]). Jed Correa MD LAB MICROBIOLOGY - GENERAL ORDERABLES Final Result Performing Organization Address [facility] [[email or web address]] Co de Phone Number [facility] [place] [address] * Mycobacteriology (AFB) culture and acid-fast stain Tissue Shoulder, right (07/28/2024 4:18 PM FORK LIFT MECHANIC) Direct Specimen Exam Stain: No Acid-fast bacilli seen Report Final Report: No growth of acid-fast bacilli [facility] Tissue (Shoulder, right) 07/28/2024 4:18 PM FORK LIFT MECHANIC 07/28/2024 6:26 PM FORK LIFT MECHANIC Narrative [facility] - 09/28/2024 2:20 PM CDT Right glenoid Testing performed by [facility] ([phone]). Jed Correa MD LAB MICROBIOLOGY - GENERAL ORDERABLES Final Result Performing Organization Address [facility] [[email or web address]] Co de Phone Number [facility] [place] [address] * Tissue aerobic and anaerobic culture and gram stain Tissue Shoulder, right (07/28/2024 4:17 PM FORK LIFT MECHANIC) Direct Specimen Exam Stain: Rare polymorphonuclear leukocytes seen. No organisms seen. Report Final Report: No growth [facility] Tissue (Shoulder, right) 07/28/2024 4:17 PM FORK LIFT MECHANIC 07/28/2024 6:29 PM FORK LIFT MECHANIC Narrative [facility] - 08/07/2024 8:59 AM FORK LIFT MECHANIC Right deltopectoral interval Testing performed by [facility] ([phone]) Specimens submitted from normally sterile body sites [...] GENERAL ORDERABLES Final Result Performing Organization Address [facility] [[email or web address]] Co de Phone Number [facility] [place] [address] * Mycology (fungal) culture and stain Tissue Shoulder, right (07/28/2024 4:17 PM FORK LIFT MECHANIC) Direct Specimen Exam Stain: No Fungal elements seen. Report Final Report: No growth of fungus [facility] Tissue (Shoulder, right) 07/28/2024 4:17 PM FORK LIFT MECHANIC 07/28/2024 6:29 PM FORK LIFT MECHANIC Narrative [facility] - 08/25/2024 7:38 AM FORK LIFT MECHANIC Right deltopectoral interval Testing performed by [facility] ([phone]). Jed Correa MD LAB MICROBIOLOGY - GENERAL ORDERABLES Final Result Performing Organization Address [facility] [[email or web address]] Co de Phone Number [facility] Department [place] [address] * Mycobacteriology (AFB) culture and acid-fast stain Tissue Shoulder, right (07/28/2024 4:17 PM FORK LIFT MECHANIC) Direct Specimen Exam Stain: No Acid-fast bacilli seen Report Final Report: No growth of acid-fast bacilli [facility] Tissue (Shoulder, right) 07/28/2024 4:17 PM FORK LIFT MECHANIC 07/28/2024 6:29 PM FORK LIFT MECHANIC Narrative [facility] - 09/28/2024 2:20 PM CDT Right deltopectoral interval Testing performed by [facility] ([phone]). Jed Correa MD LAB MICROBIOLOGY - GENERAL ORDERABLES Final Result Performing Organization Address [facility] [[email or web address]] Co de Phone Number [facility] Department [place] [address] * Tissue aerobic and anaerobic culture and gram stain Tissue Shoulder, right (07/28/2024 4:15 PM FORK LIFT MECHANIC) Direct Specimen Exam Stain: No polymorphonuclear leukocytes seen. No organisms seen. Report Final Report: No growth [facility] Tissue (Shoulder, right) 07/28/2024 4:15 PM FORK LIFT MECHANIC 07/28/2024 6:27 PM FORK LIFT MECHANIC Narrative [facility] - 08/07/2024 8:59 AM FORK LIFT MECHANIC Right subdeltoid space Testing performed by [facility] ([phone]) Specimens submitted from normally sterile body sites [...] GENERAL ORDERABLES Final Result Performing Organization Address [facility] [[email or web address]] Co de Phone Number [facility] Department [place] [address] * Mycology (fungal) culture and stain Tissue Shoulder, right (07/28/2024 4:15 PM FORK LIFT MECHANIC) Direct Specimen Exam Stain: No Fungal elements seen. Report Final Report: No growth of fungus [facility] Tissue (Shoulder, right) 07/28/2024 4:15 PM FORK LIFT MECHANIC 07/28/2024 6:27 PM FORK LIFT MECHANIC Narrative [facility] - 08/25/2024 7:38 AM FORK LIFT MECHANIC Right subdeltoid space Testing performed by [facility] ([phone]). Jed Correa MD LAB MICROBIOLOGY - GENERAL ORDERABLES Final Result Performing Organization Address [facility] de Phone Number [facility] Department [place] [address] * Mycobacteriology (AFB) culture and acid-fast stain Tissue Shoulder, right (07/28/2024 4:15 PM FORK LIFT MECHANIC) Direct Specimen Exam Stain: No Acid-fast bacilli seen Report Final Report: No growth of acid-fast bacilli [facility] Tissue (Shoulder, right) 07/28/2024 4:15 PM FORK LIFT MECHANIC 07/28/2024 6:27 PM FORK LIFT MECHANIC Narrative [facility] - 09/28/2024 2:20 PM CDT Right subdeltoid space Testing performed by [facility] ([phone]). us Jed Correa MD LAB MICROBIOLOGY - GENERAL ORDERABLES Final Result Performing Organization Address [facility] de Phone Number [facility] Department [place] [address] * WI AN ELECTIVE ENDOTRACHEAL AIRWAY, WI AN PROCEDURE PLACEHOLDER (07/28/2024 2:43 PM FORK LIFT MECHANIC) Nicky Abarca CRNA - 07/28/2024 2:43 PM FORK LIFT MECHANIC Nicky Cr CRNA 07/28/2024 2:47 PM Airway Patient location: OR Indications for airway management: anesthesia Difficult airway: no Staff: Placed by: FORENSIC INVESTIGATOR: Nicky Cr CRNA Emergent airway documentation: Risks [...] laryngoscopy Insertion site: oral Video blade type: Byers Blade size: 3 Cormack-Lehane (video): grade I - full view of glottis ETT to teeth: 22 cm Placement verified by: auscultation Airway secured with: silk tape Number of attempts: 1 Additional comments: DVC, AOI, teeth and soft tissue intact, bryant equal bs, cta o2 sats 100% throughout, ETT easily passed Coral Hirsch MD ANESTHESIA ORD ERABLES Final Result * WI AN PROCEDURE PLACEHOLDER (07/28/2024 1:53 PM FORK LIFT MECHANIC) Narrative Munir Herbert MD - 07/28/2024 1:53 PM FORK LIFT MECHANIC George Medellin MD 07/28/2024 1:53 PM Peripheral [...] BW IP ANE LDA PERIPHERAL NERVE CATHETER, WI AN PROCEDURE PLACEHOLDER (07/28/2024 1:52 PM FORK LIFT MECHANIC) Narrative Munir Herbert MD - 07/28/2024 1:52 PM FORK LIFT MECHANIC Munir Herbert MD 07/28/2024 2:56 PM Peripheral [...] short-bevel and echogenic Needle gauge: 21 G (QwilroPleLelong NanoLine [id number]) Injection assessment: injection made incrementally with constant [...] AND SCREEN 14 DAY (07/21/2024 10:29 AM FORK LIFT MECHANIC) ABO Rh AB Positive Yamilex, indirect Negative ARJAT [facility] Blood 07/21/2024 10:2 9 AM FORK LIFT MECHANIC 07/21/2024 10:52 AM FORK LIFT MECHANIC Narrative [facility] - 07/21/2024 11:44 AM FORK LIFT MECHANIC Is this test being ordered in advance for a procedure?->Yes Expected date of procedure:->07/28/24 Has the patient been transfused in the past 3 months?->No Has the patient been in the past 3 months?->No us Usha Gallagher MD LAB BLOOD BANK BIGG T ORDERABLES Final Result Performing Organization Address [facility] [[email or web address]] Co de Phone Number [facility] [place] [address] * (ABNORMAL) eGFR (07/21/2024 10:29 AM FORK LIFT MECHANIC) eGFR 38(L) >=60 mL/min/1. 73 m2 Comment: [...] reviewed 2021. Blood 07/21/2024 10:2 9 AM FORK LIFT MECHANIC 07/21/2024 10:52 AM FORK LIFT MECHANIC us Jed Correa MD LAB BLOOD ORDERAB LES Final Result Performing Organization Address [facility]/ZIP Co de Phone Number [facility] Department [place] [address] * (ABNORMAL) Differential, auto (07/21/2024 10:29 AM FORK LIFT MECHANIC) Neutrophil abs 7.5(H) 1.5 - 6.5 K/cumm Imm gran abs 0.0 0.0 - 0.1 K/cumm [facility] Lymphocyte abs 1.2 0.8 - 3.3 K/cumm [facility] Monocyte abs 0.9(H) 0.2 - 0.8 K/cumm [facility] Eosinophil abs 0.2 0.0 - 0.5 K/cumm [facility] Basophil abs 0.0 0.0 - 0.1 K/cumm [facility] Neutrophil pct 76.9 % [facility] Comment: Interpretive Data Percent cell count reference ranges are not reported, since discordance with absolute values may lead to misinterpretation of CBC data. Current Interpretive Data was last revised on 2017. Imm gran pct 0.2 % [facility] Comment: Interpretive Data Percent cell count reference ranges are not reported, since discordance with absolute values may lead to misinterpretation of CBC data. Current Interpretive Data was last revised on 2017. Lymphocyte pct 11.9 % [facility] Comment: Interpretive Data Percent cell count reference ranges are not reported, since discordance with absolute values may lead to misinterpretation of CBC data. Current Interpretive Data was last revised on 2017. Monocyte pct 9.0 % [facility] Comment: Interpretive Data Percent cell count reference ranges are not reported, since discordance with absolute values may lead to misinterpretation of CBC data. Current Interpretive Data was last revised on 2017. Eosinophil pct 1.7 % [facility] Comment: Interpretive Data Percent cell count reference ranges are not reported, since discordance with absolute values may lead to misinterpretation of CBC data. Current Interpretive Data was last revised on 2017. Basophil pct 0.3 % [facility] Comment: Interpretive Data Percent cell count reference ranges are not reported, since discordance with absolute values may lead to misinterpretation of CBC data. Current Interpretive Data was last revised on 2017. Blood 07/21/2024 10:2 9 AM FORK LIFT MECHANIC 07/21/2024 10:52 AM FORK LIFT MECHANIC us Usha Gallagher MD LAB BLOOD ORDERABL ES Final Result Performing Organization Address [facility] [[email or web address]] Co de Phone Number [facility] Department [place] [address] * (ABNORMAL) CBC with auto differential (07/21/2024 10:29 AM FORK LIFT MECHANIC) [facility] WBC 9.8 3.8 - 9.9 K/cumm Hgb 11.3(L) 11.9 - 15.5 g/dL [facility] Hct 34.0(L) 35.6 - 45.5 % [facility] Plt 242 150 - 400 K/cumm [facility] MPV 9.5 9.1 - 12.3 fL [facility] RBC 3.57(L) 3.90 - 5.20 M/cumm [facility] MCV 95.2 81.3 - 96.4 fL [facility] MCH 31.7 27.1 - 33.3 pg [facility] MCHC 33.2 32.3 - 35.7 g/dL [facility] RDW CV 14.0 11.1 - 14.9 % [facility] RDW SD 49.7(H) 35.7 - 48.1 fL [facility] NRBC abs 0.00 0.00 - 0.01 K/cumm [facility] Blood 07/21/2024 10:2 9 AM FORK LIFT MECHANIC 07/21/2024 10:52 AM FORK LIFT MECHANIC us Usha Gallagher MD LAB BLOOD ORDERABL ES Final Result Performing Organization Address [facility] [[email or web address]] Co de Phone Number [facility] Department [place] [address] * (ABNORMAL) Comprehensive metabolic panel (07/21/2024 10:29 AM FORK LIFT MECHANIC) [facility] Sodium 137 135 - 145 mmol/L Potassium, pl 4.2 3.3 - 4.9 mmol/L [facility] Chloride 103 97 - 110 mmol/L [facility] CO2 22 22 - 32 mmol/L [facility] Anion gap 12 2 - 15 mmol/L [facility] BUN 20 6 - 25 mg/dL [facility] Creatinine 1.53(H) 0.60 - 1.10 mg/dL [facility] Glucose 97 70 - 199 mg/dL [facility] Comment: Interpretive Data Fasting glucose >/= 126 [...] 2022. 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 07/21/2024 10:52 AM FORK LIFT MECHANIC Jed Correa MD LAB BLOOD ORDERAB LES Final Result [facility] Department [place] [address] from Last 3 Months Insurance [place] CHO[place] CHOICE [facility] PPO [place] Advance Directives For more information, please contact: [phone] Documents on File Type Date Recorded Patient Finisher Card Tender Expl anation ADVANCE DIRECTIVE 07/28/2024 11:21 AM Ann r of Gas Analyst-Medical * Full Code (Latest Code Status on File) Date Activated Date Inactivated Comments 07/28/2024 11:15 PM 07/29/2024 5:28 PM * Full Code Date Activated Date Inactivated Comments 11/19/2022 12:21 PM 11/23/2022 9:33 PM Care Teams Infertility Nurse Relationship Specialty Start Date End Date Paulo Mujica MD [address] [place] [id number] PCP - General 08/24/11
--- OUTSIDE RECORDS SUMMARY | 2024-10-16 12:49 | XMS_ITS | CONTINUITY OF CARE DOCUMENT ---
Author Name buddy ailynkristian Address Unknown Organization [facility] Address [address] [place] [address] Phone [phone] Care Team Providers Care Employment Officer Name Role Phone Norma BHAGAT, Brayan Ward Unavailable KAYLIN YOUNG MD Unavailable KAYLIN YOUNG MD Unavailable INSURANCE PROVIDERS Payer name Policy type / Coverage type [place] red democrat ID [facility] [id number]
--- OUTSIDE RECORDS SUMMARY | 2024-10-16 12:49 | XMS_ITS | Encounter Summary ---
Author Organization [facility] Address [address] [place] [address] Phone Care Team Providers Care [employer] Name Role Phone Paulo Mujica MD Primary Care Provider [phone] Encounter Details Date Type Department Care Team (Late st Contact Info) Description 09/18/[address] [facility] Nephrology [address] [place] [address] [place] [id number] Sirisha Bernard MD [address] [place], [place] [id number] Social History Tobacco Use Types Packs/Day Years Used Date Smoking Tobacco: Former Cigarettes 0.5 21 0 07/15/1977 - 1998 Passive Smoke Exposure: Never Smokeless Tobacco: Never AUDIT-C Answer Date Recorded Q1: How often [...] on file Legal Sex Female 2:14 AM 3RD MATE Gender Identity Female 11/02/2022 12:36 PM CDT Sexual Orientation Straight 11/02/2022 12 :36 PM CDT Occupation Industry Job Start Date Job End Date Retired Not on file Not on file Not on file documented as of this encounter Plan of Treatment Not on file documented as of this encounter Visit Diagnoses Not on filedocumented in this encounter Care Teams [employer] Relationship Specialty Start Date End Date Paulo Mujica MD [address] [place] [id number] PCP - General 08/24/11 documented as of this encounter
== END 2024-10-16 12:43 | disposition home or self-care (01) ==
PROVIDERS: PCP Family Medicine; Visit Provider Family Medicine
DX: R91.1 Solitary pulmonary nodule (principal)
CPT/HCPCS: 71250

== ENCOUNTER 2024-12-26 09:26 | Outpatient (CLI) | payer BC, SELFPAY ==
--- NOTE | ~2024-12-26 | MR_ITS ---
MRI of the lumbar spine Clinical History: Pain Technique: Axial T2-weighted images, and sagittal T1-weighted, T2-weighted, and T2 fat-sat images wer e acquired. Findings: No acute fracture seen. There is 3 mm retrolisthesis of L1 over L2. There is 4 mm retrolist hesis of L2 over L3. There is 5 mm anterolisthesis of L3 over L4. There is prominent Modic type I sig nal change about the L1-L2 disc space due to underlying degenerative disc disease. At L1-L2, there is advanced degenerative disc narrowing. There is mild diffuse disc bulge and mild fa cet arthropathy. There is minimal central canal stenosis. There is moderate to severe left neural for aminal narrowing. Right neural foramen preserved. At L2-L3, there is advanced degenerative tearing. There is mild disc bulge with moderate facet arthro era. There is mild central canal stenosis. There is severe right neural foraminal narrowing. There is mild left neural foraminal narrowing. At L3-L4, there is moderate to advanced degenerative disc narrowing. Disc bulge and severe facet arth ropathy contribute to moderate spinal canal stenosis/thecal sac compression. There is moderate right neural foraminal narrowing, and mild left neural foraminal narrowing. At L4-L5, there is moderate degenerative disc narrowing. There is severe facet arthropathy with proba ble fusion of the facet joints. No spinal canal stenosis. There is mild right neural foraminal narrow ing. Left neural foramen preserved. At L5-S1, there is advanced degenerative disc narrowing. There is minimal disc bulge with mild facet arthropathy. No central canal stenosis. There is minimal left neural foraminal narrowing. Right neura l foramen preserved. Impression: Advanced degenerative spondylosis at L3-L4, as detailed above. Moderate degenerative spondylosis throughout the remainder of the lumbar spine, as detailed above. Multiple grade 1 listheses, as detailed above. Reviewed, dictated and finalized at location . Impression: Advanced degenerative spondylosis at L3-L4, as detailed above. Moderate degenerative spondylosis throughout the remainder of the lumbar spine, as detailed above. Multiple grade 1 listheses, as detailed above.
== END 2024-12-26 09:27 | disposition home or self-care (01) ==
LOC: MICIMG 09:27
PROVIDERS: PCP Family Medicine; Visit Provider Nurse Practitioner Family
DX: M47.896 Other spondylosis, lumbar region (principal); M43.16 Spondylolisthesis, lumbar region
CPT/HCPCS: 72148

== ENCOUNTER 2025-04-21 14:24 | Outpatient (CLI) | payer BC, SELFPAY ==
--- NOTE | ~2025-04-21 | CT_ITS ---
EXAMINATION: CT abdomen pelvis wo con DATE: 04/21/2025 14:42 INDICATION: Left flank pain. Recent kidney biopsy. TECHNIQUE: Computed tomography (CT) of the abdomen and pelvis was performed without intravenous contrast. Automated exposure control and iterative reconstruction technique were employed. The dose-length product was 989.13 mGy-cm. COMPARISON: CT abdomen and pelvis 01/25/2023 FINDINGS: The visualized portions of lung bases demonstrate mild atelectasis. No pleural effusion. The heart size is normal. No pericardial effusion. There are surgical changes of the stomach. The liver is normal. Calcifications in the spleen are consistent with old granulomatous disease. There are changes of cholecystectomy. The pancreas and adrenal glands are normal. There is cortical thinning of left kidney. There are cysts in the kidneys measuring up to 2.8 cm on the right. There is a small left perinephric hematoma measuring 3.3 x 1.5 cm. There is diverticulosis of the colon without evidence of diverticulitis. There are changes of appendectomy. There is a 4.3 cm cyst in left ovary. There is a 2.3 x 0.9 x 3.7 cm thick-walled fluid collection in anterior abdominal wall. There are no pathologically enlarged lymph nodes. There is no free intraperitoneal fluid. There is severe lumbar spondylosis. IMPRESSION: 1. Small left perinephric hematoma. 2. Chronic 4.3 cm cyst in left ovary, likely benign. Consider pelvis ultrasound in one year. 3. 2.3 x 0.9 x 3.7 cm thick-walled fluid collection in anterior abdominal wall, which may be a seroma. Reviewed, dictated and finalized at location E.
== END 2025-04-21 14:25 | disposition home or self-care (01) ==
LOC: MICIMG 14:25
PROVIDERS: PCP Family Medicine; Visit Provider Family Medicine
DX: S37.012A Minor contusion of left kidney, initial encounter (principal); X58.XXXA Exposure to other specified factors, initial encounter; R10.A2 Flank pain, left side; N83.202 Unspecified ovarian cyst, left side; K65.1 Peritoneal abscess; Z98.890 Other specified postprocedural states
CPT/HCPCS: 74176

== ENCOUNTER 2025-07-06 07:39 | Outpatient (CLI) | payer MEDICARE, BC, SELFPAY ==
--- NOTE | ~2025-07-06 | MM_ITS ---
EXAMINATION: MM screening anastasiia BI w esteban HISTORY: Screening. TECHNIQUE: Craniocaudal and mediolateral oblique 3-D tomosynthesis images were obtained and synthetic 2-D images were generated. CAD analysis was submitted and interpreted. COMPARISON: 2023, 2022, and 2021 BREAST PARENCHYMAL COMPOSITION: Not Dense: The breasts are almost entirely fatty FINDINGS: No suspicious masses are seen. There are no suspicious calcifications. No unexplained architectural distortion is seen. There are no skin or nipple abnormalities identified. There is no adenopathy seen on the images submitted. IMPRESSION: No mammographic evidence to suggest malignancy is seen. The patient may return to screening mammography as per ACR guidelines. BI-RADS 1 - Negative. Reviewed, dictated and finalized at location C. GATIONIST
--- OUTSIDE RECORDS SUMMARY | 2025-07-06 07:48 | XMS_ITS | Clinical Summary ---
Author Organization [facility] [employer] Address [address] [place] [address] Care Team Providers Care Saw Straightener Name Role Phone Paulo Mujica MD Primary Care Provider [phone] Allergies No known active allergies Medications lisinopriL (PRINIVIL,ZEST RIL) 40 mg tabletIndicati ons:hypertensi on Take 1 tablet (40 mg total) by mouth every morning 05/19/20 22 Active cholecalcifero l (VITAMIN D-3) 5,000 unit capsuleIndicat ions:supplemen t Take 1 capsule (5,000 Units total) by mouth every morning Active docusate sodium (COLACE) 100 mg capsuleIndicat ions:constipat ion Take 1 capsule (100 mg total) by mouth 2 (two) times a day 60 capsule 07/29/19 25 Active acetaminophen 500 mg capsuleIndicat ions:Pain Take 2 capsules (1,000 mg total) by mouth every 6 (six) hours 90 tablet 07/29/19 25 Active empagliflozin (JARDIANCE) 10 mg tablet Take 1 tablet (10 mg total) by mouth daily 90 tablet 3 12/01/19 25 Active multivitamin tablet Take 1 tablet by mouth 11/12/19 23 Active calcium-vits R0-F-A9-minera ls 166.75 mg- 166.75 unit capsule Take by mouth Active levothyroxine (SYNTHROID) 137 mcg tablet Take 1 tablet (137 mcg total) by mouth daily 05/24/20 25 Active semaglutide (OZEMPIC) 0.25 mg or 0.5 mg (2 mg/3 mL) pen injector injection Inject 0.25 mg under the skin daily 06/28/20 25 Active ferrous sulfate 325 mg (65 mg of elemental iron) tabletIndicati ons:Iron Deficiency Anemia Take 1 tablet (325 mg total) by mouth every other day 45 tablet 3 06/28/20 25 Active spironolactone (ALDACTONE) 25 mg tablet Take 0.5 tablets (12.5 mg total) by mouth daily 45 tablet 3 06/28/20 25 026 Active amLODIPine (NORVASC) 5 mg tablet Take 1 tablet by mouth once daily 90 tablet 11/22/19 24 025 Discontinued(Al ternate therapy) levothyroxine (SYNTHROID) 125 mcg tabletIndicati ons:hypothyroi dism Take 137 mcg by mouth sales representatives before breakfast 07/04/20 24 025 Discontinued(Peña maher Reported) amoxicillin (AMOXIL) 500 mg tablet/capsule TAKE FOUR TABLETS/CAPSU LES 1 HOUR PRIOR TO DENTAL PROCEDURE 12 tablet/caps ule 10/27/19 25 025 Discontinued(Peña maher Reported) tirzepatide (Mounjaro) 2.5 mg/0.5 mL pen injector injection Inject 0.5 mL (2.5 mg total) under the skin every 7 days 2 mL 04/29/20 25 025 Discontinued Active Problems Problem Noted Date Diagnosed Date VANDANA (acute kidney injury) 04/08/2025 Chronic kidney disease (CKD), stage III (moderat e) 04/08/2025 Assessment & Plan (04/09/2025 11:51 AM CDT): - Patient underwent successful ultrasound-guided core needle biopsy of left rosebud kidney on 04/08. The procedure was complicated by small postbiopsy perinephric and abdominal wall hematomas initially with active bleeding in the abdominal wall, which resolved with manual pressure. The patient was instructed to stay in the LLD position to keep pressure on this side. There were no acute events overnight and she reports feeling well this morning. She states that she had some pain at bx site yesterday, but this is improved today. She has been voiding post procedure. She denies hematuria. She denies chest pain, sob, n/v, or any other concerns at this time. Hgb has been stable. Patient will be discharged home. -post procedure instructions and follow up as per IR Assessment & Plan (04/08/2025 4:14 PM CDT): - Patient underwent successful ultrasound-guided core needle biopsy of left rosebud kidney today. - Procedure complicated by small postbiopsy perinephric and abdominal wall hematomas initially with active bleeding in the abdominal wall, which resolved with manual pressure. The patient was instructed to stay in the LLD position to keep pressure on this side. - ice packing, tylenol. - h/h monitoring - repeat CT scan if there is progressive pain or significant hemoglobin drop. - worsening proteinuria being managed with ARB and SGLT2i. Held due to light postprocedure bleeding. Resume as appropriate - The patient was instructed to stay in the LLD position to keep pressure on this side. Status post biopsy of kidney 04/08/2025 Assessment & Plan (04/09/2025 11:51 AM CDT): - Patient underwent successful ultrasound-guided core needle biopsy of left rosebud kidney on 04/08. The procedure was complicated by small postbiopsy perinephric and abdominal wall hematomas initially with active bleeding in the abdominal wall, which resolved with manual pressure. The patient was instructed to stay in the LLD position to keep pressure on this side. There were no acute events overnight and she reports feeling well this morning. She states that she had some pain at bx site yesterday, but this is improved today. She has been voiding post procedure. She denies hematuria. She denies chest pain, sob, n/v, or any other concerns at this time. Hgb has been stable. Patient will be discharged home. -post procedure instructions and follow up as per IR Assessment & Plan (04/08/2025 4:14 PM CDT): - Patient underwent successful ultrasound-guided core needle biopsy of left rosebud kidney today. - Procedure complicated by small postbiopsy perinephric and abdominal wall hematomas initially with active bleeding in the abdominal wall, which resolved with manual pressure. The patient was instructed to stay in the LLD position to keep pressure on this side. - ice packing, tylenol. - h/h monitoring - repeat CT scan if there is progressive pain or significant hemoglobin drop. - worsening proteinuria being managed with ARB and SGLT2i. Held due to light postprocedure bleeding. Resume as appropriate - The patient was instructed to stay in the LLD position to keep pressure on this side. S/P reverse total shoulder arthroplasty, right 0 [...] Encounters Date Type Department Care Team Description 06/28/2025 3:00 PM SCREEN MAKING SUPERVISOR Office Visit [facility] Medicine Nephrology [address] [place] [address] Medicine 5th [place] [id number] Stage 3b chronic kidney disease (HCC) (Primary Dx); FSGS (focal segmental glomerulosclerosis); Persistent proteinuria; Primary hypertension; Renal osteodystrophy 06/28/2025 Telephone [facility] Nephrology [address] [place] [address] Medicine [facility] [place] [id number] Tim Gtz MD drug interaction 04/29/2025 Orders Only [facility] Medicine Nephrology [address] [place] [address] Medicine 5th [place] [address] [place] [address] Tim Gtz MD 04/12/2025 Telephone [facility] Nephrology [address] [place] [address] Medicine 5th [place] [address] Tim Gtz MD PA Ozempic; Prior Auth (wegovy) 04/12/2025 Orders Only [facility] Medicine Nephrology [facility] Medicine 5th [place] [address] [place] [address] Tim Gtz MD 04/08/2025 1:12 PM CDT - 04/09/2025 11:10 AM CDT Hospital Encounter [address] [address] Taty Rae MD Farooqui, MD Niels Sol Kieran, MD Stage 4 chronic kidney disease (HCC) Discharge Disposition: Discharge to home or self care 04/08/2025 10:00 AM CDT Lab [facility] [address] 1st [place] [address] Stage 4 chronic kidney disease (HCC) 04/08/2025 Hospital Encounter [facility] AD[facility] [address] [place] [address] Rocio Gar MD from Last 3 Months Immunizations Immunization Administration [...] JOINT REPLACEMENT SHOULDER ARTHROPLASTY 07/28/2024 Right revision US GUIDED BIOPSY RENAL 04/08/2025 N/A Medical History Medical History Date Comments Hypertension [...] making you feel afraid or unsafe? Denies 04/08/2025 Comments Unknown Sex and Gender Information Value Date Recorded Sex Assigned at Not on file Legal Sex Female 2:14 AM SCREEN MAKING SUPERVISOR Gender Identity Female 11/02/2022 12:36 PM CDT Sexual Orientation Straight 11/02/2022 12 :36 PM CDT Occupation Industry Job Start Date Job End Date Retired Not on file Not on file Not on file Last Filed Vital Signs Vital Sign Reading Time Taken Comments Blood Pressure 117/61 06/28/2025 2:55 PM SCREEN MAKING SUPERVISOR Pulse 75 06/28/2025 2:55 PM SCREEN MAKING SUPERVISOR Temperature 36.5 C (97.7 F) 06/28/2025 2:55 PM SCREEN MAKING SUPERVISOR Respiratory Rate 16 04/09/2025 8:14 AM CDT Oxygen Saturation 99% 06/28/2025 2:55 PM SCREEN MAKING SUPERVISOR Inhaled Oxygen Concentration - - Weight 118.8 kg (262 lb) 06/28/2025 2:55 PM SCREEN MAKING SUPERVISOR Height 157.5 cm (5' 2) 06/28/2025 2:55 PM SCREEN MAKING SUPERVISOR Body Mass Index 47.92 06/28/2025 2:55 PM SCREEN MAKING SUPERVISOR Plan of Treatment Health Maintenance Due Date Last Done Comments Breast Cancer Screening-Mammogram 1960 Cervical Cancer Screening 1960 Colon Cancer Screening-Colonoscopy 1960 Depression Screening 1960 Osteoporosis Screening-Bone Density Scan 1960 Pneumococcal vaccine 65+ (1 of 2 - PCV) 1979 Covid-19 Vaccine (2024-2 6 season) 2025 04/11/2022, 12/08/2021, 05/22/2021, Additional history exists Influenza Vaccine (#1) 2025 , 04/11/2023, 05/23/2022, Additional history exists Well Visit 65+ 2025 Fall Risk Assessment 04/08/2026 04/08/2025 DTaP/Tdap/Td Vaccine (2 - Td or Tdap) 01/09/2031 01/09/2021 Zoster Vaccine Completed 05/22/2023, 03/20/2023 Hepatitis B Screening Completed 09/14/2024 Hepatitis C Screening Completed 09/14/2024 Medical Devices Implanted Type Area Greenhouse Specialist Device Identifier Shelf Expiration Date Model / Serial / Lot Total Joint Bilateral : Knee Plate & Screws Left: Foot Total Joint Right: Shoulder Integra Active Optical [employer] Ramila Duragen Plus 7x5in Resorbable Onlay Regeneration Cranium Graft Dp-1057 - [id number] Implanted:Qty: 1 on 11/19/2022 by Zach Carrasco MD at [facility] Integra Active Optical [employer] Ramila [id number] DP-1057 / / [id number] Dinorah Craniomaxillofaci al [place] Neuro 3 1.5mm 4mm Self Drill Axial Stability Screw Bone Latex Free [id number] - [id number] Implanted:Qty: 9 on 11/19/2022 by Zach Carrasco MD at [facility] Left: Cranial Dinorah Craniomaxillofacial [id number] / / [place] Craniomaxillofaci al Mesh Dynamic Gold 110z734p.6mm Std Crnmxf Ti [id number] - [id number] Implanted:Qty: 1 on 11/19/2022 by Zach Carrasco MD at [facility] Left: Cranial [place] Craniomaxillofacial [id number] / / [employer] Aequalis Perform Reversed 5mm 38mm Peripheral Glenoid Screw [id number] - [id number] Implanted:Qty: 1 on 07/28/2024 by Jed Correa MD at [facility] Right: Shoulder [employer] [id number] / / [employer] Aequalis Perform Reversed 5mm 18mm Peripheral Glenoid Screw [id number] - [id number] Implanted:Qty: 1 on 07/28/2024 by Jed Correa MD at [facility] Right: Shoulder [employer] [id number] / / [employer] Tornier Aequalis Perform Od36 Mm Reverse Shoulder +2 Mm Inferior Offset Sphere Glenoid [id number] - [id number] - [id number] Implanted:Qty: 1 on 07/28/2024 by Jed Correa MD at [facility] Right: Shoulder [employer] 01/13/2029 [id number] / [id number] / [employer] R1 Reverse Shoulder System Humeral Spacer Implant (+12mm) Implanted:Qty: 1 on 07/28/2024 by Jed Correa MD at [facility] Right: Shoulder [employer] 11/07/2026 [id number] Description:Approve custom c ase. Misc code used [employer] R1 Reverse Shoulder System Spacer Locking Screw Implant Implanted:Qty: 1 on 07/28/2024 by Jed Correa MD at [facility] Right: Shoulder [employer] 12/22/2026 [id number] Description:Approve custom c ase. Misc code used [employer] R1 Reverse Shoulder System Ring Sc Poly Insert Implant Size 36+4 Implanted:Qty: 1 on 07/28/2024 by Jed Correa MD at [facility] Right: Shoulder [employer] 03/04/2029 [id number] / / [id number] Description:Approve custom c ase misc code used [employer] Od25 Mm Full Wedge Augment Shoulder 15 D Baseplate Glenoid [id number] - [id number] - [id number] Implanted:Qty: 1 on 07/28/2024 by Jed Correa MD at [facility] Right: Shoulder [employer] 06/10/2029 [id number] / [id number] / [employer] Post Press Fit Glenoid Threaded Long Aequalis Perform 15mm [id number] - [id number] - [id number] Implanted:Qty: 1 on 07/28/2024 by Jed Correa MD at [facility] Right: Shoulder [employer] 08/17/2028 [id number] / [id number] / [employer] Aequalis Perform Reversed 5mm 34mm Peripheral Glenoid Screw Wpv705 - [id number] Implanted:Qty: 2 on 07/28/2024 by Jed Correa MD at [facility] Right: Shoulder [employer] [id number] / / Procedures Procedure Name Priority Date/Time Associated Diagnosis Comments COPY RECEIVED FROM Routine 06/17/2025 11 :42 AM SCREEN MAKING SUPERVISOR COPY(IES) SENT TO: Routine 06/17/2025 11 :42 AM SCREEN MAKING SUPERVISOR PROTEIN / CREATININE RATIO, URINE, RANDOM Routine 06/17/2025 11:42 AM SCREEN MAKING SUPERVISOR Stage 3 chronic kidney disease, unspecified whether stage 3a or 3b CKD (HCC) ALBUMIN CREATININE RATIO, URINE Routine 06/17/2025 11:42 AM SCREEN MAKING SUPERVISOR Stage 3 chronic kidney disease, unspecified whether stage 3a or 3b CKD (HCC) RENAL FUNCTION PANEL Routine 06/17/2025 11:42 AM SCREEN MAKING SUPERVISOR Stage 3 chronic kidney disease, unspecified whether stage 3a or 3b CKD (HCC) CBC WITH AUTO DIFFERENTIAL Routine 06/17/2025 11:42 AM SCREEN MAKING SUPERVISOR Stage 3 chronic kidney disease, unspecified whether stage 3a or 3b CKD (HCC) IRON PROFILE W/ IBC Routine 06/17/2025 1 1:42 AM SCREEN MAKING SUPERVISOR Stage 3 chronic kidney disease, unspecified whether stage 3a or 3b CKD (HCC) FERRITIN Routine 06/17/2025 11:42 AM SCREEN MAKING SUPERVISOR Stage 3 chronic kidney disease, unspecified whether stage 3a or 3b CKD (HCC) PTH Routine 06/17/2025 11:42 AM SCREEN MAKING SUPERVISOR Stage 3 chronic kidney disease, unspecified whether stage 3a or 3b CKD (HCC) VITAMIN D 25 HYDROXY Routine 06/17/2025 11:42 AM SCREEN MAKING SUPERVISOR Stage 3 chronic kidney disease, unspecified whether stage 3a or 3b CKD (HCC) COPY RECEIVED FROM Routine 05/12/2025 10 :54 AM CDT COPY(IES) SENT TO: Routine 05/12/2025 10 :54 AM CDT CBC WITH AUTO DIFFERENTIAL Routine 05/12/2025 10:54 AM CDT Stage 4 chronic kidney disease (HCC) ALBUMIN CREATININE RATIO, URINE Routine 05/12/2025 10:54 AM CDT Stage 4 chronic kidney disease (HCC) RENAL FUNCTION PANEL Routine 05/12/2025 10:54 AM CDT Stage 4 chronic kidney disease (HCC) CBC WITHOUT DIFFERENTIAL STAT 04/09/2025 8:33 AM CDT EGFR Routine 04/08/2025 10:47 PM CDT DIFFERENTIAL AUTO Routine 04/08/2025 10: 47 PM CDT CBC WITH AUTO DIFFERENTIAL Routine 04/08/2025 10:47 PM CDT PHOSPHORUS Routine 04/08/2025 10:47 PM CDT MAGNESIUM Routine 04/08/2025 10:47 PM CDT COMPREHENSIVE METABOLIC PANEL Routine 04/08/2025 10:47 PM CDT HEMOGLOBIN AND HEMATOCRIT STAT 04/08/2025 4:34 PM CDT US GUIDED BIOPSY RENAL Schedule Routine, Read Routine (OP Routine) 04/08/2025 1:07 PM CDT Stage 4 chronic kidney disease (HCC) SURGICAL PATHOLOGY Routine 04/08/2025 12 :49 PM CDT Stage 4 chronic kidney disease (HCC) PROTIME-INR Routine 04/08/2025 10:11 AM CDT Stage 4 chronic kidney disease (HCC) TYPE AND SCREEN Routine 04/08/2025 10:11 AM CDT Stage 4 chronic kidney disease (HCC) HEPATITIS C ANTIBODY Routine 09/14/2024 12:38 PM SCREEN MAKING SUPERVISOR Stage 3b chronic kidney disease (HCC) from Last 3 Months or Most Recently Relevant to Health Maintenance Results * Copy received from (06/17/2025 11:42 AM SCREEN MAKING SUPERVISOR) Copy Rec'd from: [facility] Comment: [facility] INTER[facility] MED-RENAL [id number] [address] 06/17/2025 11:4 2 AM SCREEN MAKING SUPERVISOR 06/17/2025 11:43 AM SCREEN MAKING SUPERVISOR Narrative [facility] - 06/18/2025 1:41 PM SCREEN MAKING SUPERVISOR FASTING:NO FASTING: NO us Sirisha Bernard MD LAB BLOOD ORDERABLES Fin al Result [facility] * COPY(IES) SENT TO: (06/17/2025 11:42 AM SCREEN MAKING SUPERVISOR) COPY(IES) SENT TO: [facility] Comment: [facility] INTERNAL MED RENAL CB [id number] [facility] [address] [place] [address] 06/17/2025 11:4 2 AM SCREEN MAKING SUPERVISOR 06/17/2025 11:43 AM SCREEN MAKING SUPERVISOR Narrative [facility] - 06/18/2025 1:41 PM SCREEN MAKING SUPERVISOR FASTING:NO FASTING: NO Sirisha Bernard MD LAB BLOOD ORDERABLES Fin al Result [facility] * Iron profile w/ IBC (06/17/2025 11:42 AM SCREEN MAKING SUPERVISOR) [facility] Iron 76 45 - 160 mcg/dL [facility] TIBC 313 250 - 450 mcg/dL (calc) [facility] Iron saturation 24 16 - 45 % (calc) [facility] Blood 06/17/2025 11:4 2 AM SCREEN MAKING SUPERVISOR 06/17/2025 11:43 AM SCREEN MAKING SUPERVISOR Narrative [facility] - 06/18/2025 1:41 PM SCREEN MAKING SUPERVISOR FASTING:NO FASTING: NO Sirisha Bernard MD LAB BLOOD ORDERABLES Fin al Result [facility] [address] [place] [address] * (ABNORMAL) CBC with auto differential (06/17/2025 11:42 AM SCREEN MAKING SUPERVISOR) Pathologist [facility] WBC 5.6 3.8 - 10.8 Thousand/u L [facility] RBC, POC 3.75(L) 3.80 - 5.10 Million/uL [facility] Hgb 12.0 11.7 - 15.5 g/dL [facility] Hct 36.5 35.9 - 46.0 % [facility] MCV 97.3 81.4 - 101.7 fL [facility] MCH 32.0 27.0 - 33.0 pg [facility] MCHC 32.9 31.6 - 35.4 g/dL [facility] Comment: For adults, a slight decrease in the calculated MCHC value (in the range of 30 to 32 g/dL) is most likely not clinically significant; however, it should be interpreted with caution in correlation with other red cell parameters and the patient's clinical condition. Rdw 13.1 11.0 - 15.0 % [facility] Platelets 254 140 - 400 Thousand/u L [facility] MPV 9.9 7.5 - 12.5 fL [facility] Neutrophils, abs 3,259 1,500 - 7,800 cells/uL [facility] Lymphocytes, abs 1,439 850 - 3,900 cells/uL [facility] Monocyte abs 582 200 - 950 cells/uL [facility] Eosinophils, abs 280 15 - 500 cells/uL [facility] Basophils, abs 39 0 - 200 cells/uL [facility] Neutrophils 58.2 % [facility] Lymphocyte pct 25.7 % [facility] Monocytes 10.4 % [facility] Eosinophils 5.0 % [facility] Basophils 0.7 % [facility] Blood 06/17/2025 11:4 2 AM SCREEN MAKING SUPERVISOR 06/17/2025 11:43 AM SCREEN MAKING SUPERVISOR Narrative [facility] - 06/18/2025 1:41 PM SCREEN MAKING SUPERVISOR FASTING:NO FASTING: NO us Sirisha Bernard MD LAB BLOOD ORDERABLES Fin al Result [facility] [address] [address] * (ABNORMAL) Protein / creatinine ratio, urine, random (06/17/2025 11:42 AM SCREEN MAKING SUPERVISOR) Creatinine, ur 49 20 - 275 mg/dL [facility] Protein/creati nine ratio 2,694(H) 24 - 184 mg/g creat [facility] Protein/Creati nine Ratio 2.694(H) 0.024 - 0.184 mg/mg creat [facility] Protein, ur, quant 132(H) 5 - 24 mg/dL [facility] Urine 06/17/2025 11:4 2 AM SCREEN MAKING SUPERVISOR 06/17/2025 11:43 AM SCREEN MAKING SUPERVISOR Narrative [facility] - 06/18/2025 1:41 PM SCREEN MAKING SUPERVISOR FASTING:NO FASTING: NO Sirisha Bernard MD LAB URINE ORDERABLES Fin al Result Performing Organization Address [facility] de Phone Number [facility] [address] [place] [address] * (ABNORMAL) Albumin Creatinine Ratio, Urine (06/17/2025 11:42 AM SCREEN MAKING SUPERVISOR) Creatinine, ur 49 20 - 275 mg/dL [facility] Microalbumin, ur 80.3 See Note: mg/dL [facility] Comment: Reference Range: Reference Range Not established Verified by repeat analysis. Microalbumin/crea t ratio 1,639(H) <30 mg/g creat [facility] Comment: The ADA defines abnormalities in albumin excretion as follows: Albuminuria Category Result (mg/g creatinine) Normal to Mildly increased <30 Moderately increased 30-299 Severely increased > OR = 300 The ADA recommends that at least two of three specimens collected within a 3-6 month period be abnormal before considering a patient to be within a diagnostic category. Urine 06/17/2025 11:4 2 AM SCREEN MAKING SUPERVISOR 06/17/2025 11:43 AM SCREEN MAKING SUPERVISOR Narrative [facility] - 06/18/2025 1:41 PM SCREEN MAKING SUPERVISOR FASTING:NO FASTING: NO Sirisha Bernard MD LAB URINE ORDERABLES Fin al Result Performing Organization Address [facility] de Phone Number [facility] [address] [facility] [place] [address] * Vitamin D 25 hydroxy (06/17/2025 11:42 AM SCREEN MAKING SUPERVISOR) Pathologist [facility] Vitamin D 25-OH 54 30 - 100 ng/mL [facility] Comment: Vitamin D Status 25-OH Vitamin D: Deficiency: <20 ng/mL Insufficiency: 20 - 29 ng/mL Optimal: > or = 30 ng/mL For 25-OH Vitamin D testing on patients on D2-supplementation and patients for whom quantitation of D2 and D3 fractions is required, the [facility](TM) 25-OH VIT D, (D2,D3), LC/MS/MS is recommended: order code 11310 (patients >2yrs). See Note 1 Note 1 For additional information, please refer to [email or web address] (This link is being provided for informational/ educational purposes only.) Blood 06/17/2025 11:4 2 AM SCREEN MAKING SUPERVISOR 06/17/2025 11:43 AM SCREEN MAKING SUPERVISOR Narrative [facility] - 06/18/2025 1:41 PM SCREEN MAKING SUPERVISOR FASTING:NO FASTING: NO Sirisha Bernard MD LAB BLOOD ORDERABLES Fin al Result Performing Organization Address [facility] de Phone Number [facility] [address] [place] [address] * PTH (06/17/2025 11:42 AM SCREEN MAKING SUPERVISOR) Pathologist [facility] Parathyroid hormone, intact 53 16 - 77 pg/mL [facility] Comment: Interpretive Guide Intact PTH Calcium ------- Normal Parathyroid Normal Normal Hypoparathyroidism Low or Low Normal Low Hyperparathyroidism Primary Normal or High High Secondary High Normal or Low Tertiary High High Non-Parathyroid Hypercalcemia Low or Low Normal High Blood 06/17/2025 11:4 2 AM SCREEN MAKING SUPERVISOR 06/17/2025 11:43 AM SCREEN MAKING SUPERVISOR Narrative [facility] - 06/18/2025 1:41 PM SCREEN MAKING SUPERVISOR FASTING:NO FASTING: NO Sirisha Bernard MD LAB BLOOD ORDERABLES Fin al Result Performing Organization Address City/[facility]/ZIP Co de Phone Number [facility] [address] [place] [address] * Ferritin (06/17/2025 11:42 AM SCREEN MAKING SUPERVISOR) Ferritin 41 16 - 288 ng/mL [facility] Blood 06/17/2025 11:4 2 AM SCREEN MAKING SUPERVISOR 06/17/2025 11:43 AM SCREEN MAKING SUPERVISOR Narrative [facility] - 06/18/2025 1:41 PM SCREEN MAKING SUPERVISOR FASTING:NO FASTING: NO us Sirisha Bernard MD LAB BLOOD ORDERABLES Fin al Result Performing Organization Address City/[facility] Co de Phone Number [facility] [address] [place] [address] * (ABNORMAL) Renal function panel (06/17/2025 11:42 AM SCREEN MAKING SUPERVISOR) Pathologist [facility] Glucose 107 65 - 139 mg/dL [facility] Comment: Non-fasting reference interval BUN 32(H) 7 - 25 mg/dL [facility] Creatinine 1.74(H) 0.50 - 1.05 mg/dL [facility] eGFR 32(L) > OR = 60 mL/min/1.7 3m2 [facility] [facility] BUN/creat ratio 18 6 - 22 (calc) [facility] Sodium 137 135 - 146 mmol/L [facility] Potassium, pl 4.5 3.5 - 5.3 mmol/L [facility] Chloride 106 98 - 110 mmol/L [facility] CO2 23 20 - 32 mmol/L [facility] Calcium 10.9(H) 8.6 - 10.4 mg/dL [facility] Phosphorus, sr 4.2 2.1 - 4.3 mg/dL [facility] Albumin 4.2 3.6 - 5.1 g/dL [facility] Blood 06/17/2025 11:4 2 AM SCREEN MAKING SUPERVISOR 06/17/2025 11:43 AM SCREEN MAKING SUPERVISOR Narrative [facility] - 06/18/2025 1:41 PM SCREEN MAKING SUPERVISOR FASTING:NO FASTING: NO Sirisha Bernard MD LAB BLOOD ORDERABLES Fin al Result Performing Organization Address City/[facility] de Phone Number [facility] [address] [place] [address] * Copy received from (05/12/2025 10:54 AM CDT) Copy Rec'd from: [facility] Comment: WASH U - INTERNAL MED-RENAL CB [id number] [address] 05/12/2025 10:5 4 AM CDT 05/12/2025 10:55 AM CDT Sirisha Bernard MD LAB BLOOD ORDERABLES Fin al Result Performing Organization Address [facility] de Phone Number [facility] * COPY(IES) SENT TO: (05/12/2025 10:54 AM CDT) COPY(IES) SENT TO: [facility] Comment: WASH U INTERNAL MED RENAL CB [id number] [address] 05/12/2025 10:5 4 AM CDT 05/12/2025 10:55 AM CDT Sirisha Bernard MD LAB BLOOD ORDERABLES Fin al Result Performing Organization Address [facility] de Phone Number [facility] * (ABNORMAL) CBC with auto differential (05/12/2025 10:54 AM CDT) WBC 5.6 3.8 - 10.8 Thousand/u L [facility] RBC, POC 3.59(L) 3.80 - 5.10 Million/uL [facility] Hgb 11.4(L) 11.7 - 15.5 g/dL [facility] Hct 34.9(L) 35.0 - 45.0 % [facility] MCV 97.2 80.0 - 100.0 fL [facility] MCH 31.8 27.0 - 33.0 pg [facility] MCHC 32.7 32.0 - 36.0 g/dL [facility] Comment: For adults, a slight decrease in the calculated MCHC value (in the range of 30 to 32 g/dL) is most likely not clinically significant; however, it should be interpreted with caution in correlation with other red cell parameters and the patient's clinical condition. Rdw 13.1 11.0 - 15.0 % [facility] Platelets 234 140 - 400 Thousand/u L [facility] MPV 10.4 7.5 - 12.5 fL [facility] Neutrophils, abs 3,354 1,500 - 7,800 cells/uL [facility] Lymphocytes, abs 1,439 850 - 3,900 cells/uL [facility] Monocyte abs 504 200 - 950 cells/uL [facility] Eosinophils, abs 280 15 - 500 cells/uL [facility] Basophils, abs 22 0 - 200 cells/uL [facility] Neutrophils 59.9 % [facility] Lymphocyte pct 25.7 % [facility] Monocytes 9.0 % [facility] Eosinophils 5.0 % [facility] Basophils 0.4 % [facility] Blood 05/12/2025 10:5 4 AM CDT 05/12/2025 10:55 AM CDT us Sirisha Bernard MD LAB BLOOD ORDERABLES Fin al Result [facility] [address] [address] * (ABNORMAL) Albumin Creatinine Ratio, Urine (05/12/2025 10:54 AM CDT) Creatinine, ur 57 20 - 275 mg/dL [facility] Microalbumin, ur 65.1 See Note: mg/dL [facility] Comment: Reference Range: Reference Range Not established Verified by repeat analysis. Microalbumin/crea t ratio 1,142(H) <30 mg/g creat [facility] Comment: The ADA defines abnormalities in albumin excretion as follows: Albuminuria Category Result (mg/g creatinine) Normal to Mildly increased <30 Moderately increased 30-299 Severely increased > OR = 300 The ADA recommends that at least two of three specimens collected within a 3-6 month period be abnormal before considering a patient to be within a diagnostic category. Urine 05/12/2025 10:5 4 AM CDT 05/12/2025 10:55 AM CDT us Sirisha Bernard MD LAB URINE ORDERABLES Fin al Result [facility] [address] [place] [address] * (ABNORMAL) Renal function panel (05/12/2025 10:54 AM CDT) Glucose 89 65 - 99 mg/dL [facility] Comment: Fasting reference interval BUN 43(H) 7 - 25 mg/dL [facility] Creatinine 2.05(H) 0.50 - 1.05 mg/dL [facility] eGFR 27(L) > OR = 60 mL/min/1.7 3m2 [facility] BUN/creat ratio 21 6 - 22 (calc) [facility] Sodium 140 135 - 146 mmol/L [facility] Potassium, pl 4.0 3.5 - 5.3 mmol/L [facility] Chloride 110 98 - 110 mmol/L [facility] CO2 18(L) 20 - 32 mmol/L [facility] Calcium 10.6(H) 8.6 - 10.4 mg/dL [facility] Phosphorus, sr 4.1 2.5 - 4.5 mg/dL [facility] Albumin 4.2 3.6 - 5.1 g/dL [facility] Blood 05/12/2025 10:5 4 AM CDT 05/12/2025 10:55 AM CDT Sirisha Bernard MD LAB BLOOD ORDERABLES Fin al Result [employer] [facility] [address] [address] * CBC without differential (04/09/2025 8:33 AM CDT) WBC 7.14 3.80 - 9.90 K/cumm Hgb 12.3 11.9 - 15.5 g/dL [facility] Hct 36.8 35.6 - 45.5 % [facility] Plt 248 150 - 400 K/cumm [facility] MPV 9.5 9.1 - 12.3 fL [facility] RBC 3.91 3.90 - 5.20 M/cumm [facility] MCV 94.1 81.3 - 96.4 fL [facility] MCH 31.5 27.1 - 33.3 pg [facility] MCHC 33.4 32.3 - 35.7 g/dL [facility] RDW CV 13.3 11.1 - 14.9 % [facility] RDW SD 45.7 35.7 - 48.1 fL [facility] NRBC abs 0.00 0.00 - 0.01 K/cumm [facility] Blood 04/09/2025 8:33 AM CDT 04/09/2025 8:41 AM CDT Narrative [facility] - 04/09/2025 8:53 AM CDT 6 Hours post procedure. us Mirian GREER LAB BLOOD ORDERABLES Final Result [facility] Department [place] [address] * (ABNORMAL) eGFR (04/08/2025 10:47 PM CDT) Pathologist [facility] eGFR 26(L) >=60 mL/min/1. 73 m2 Comment: Interpretive Data [...] interpretive data was last reviewed 2021. Blood 04/08/2025 10:4 7 PM CDT 04/08/2025 11:09 PM CDT us Manjinder Tatum MD LAB BLOOD ORDERABLES Palma mohan Result [facility] [place] [address] * (ABNORMAL) Differential, auto (04/08/2025 10:47 PM CDT) [facility] Neutrophil abs 3.60 1.50 - 6.50 K/cumm Imm gran abs 0.01 0.00 - 0.10 K/cumm [facility] Lymphocyte abs 1.56 0.80 - 3.30 K/cumm [facility] Monocyte abs 0.63 0.20 - 0.80 K/cumm [facility] Eosinophil abs 0.87(H) 0.00 - 0.50 K/cumm [facility] Basophil abs 0.04 0.00 - 0.10 K/cumm [facility] Neutrophil pct 53.7 % [facility] Comment: Interpretive Data Percent cell count reference ranges are not reported, since discordance with absolute values may lead to misinterpretation of CBC data. Current Interpretive Data was last revised on 2017. Imm gran pct 0.1 % [facility] Comment: Interpretive Data Percent cell count reference ranges are not reported, since discordance with absolute values may lead to misinterpretation of CBC data. Current Interpretive Data was last revised on 2017. Lymphocyte pct 23.2 % [facility] Comment: Interpretive Data Percent cell count reference ranges are not reported, since discordance with absolute values may lead to misinterpretation of CBC data. Current Interpretive Data was last revised on 2017. Monocyte pct 9.4 % [facility] Comment: Interpretive Data Percent cell count reference ranges are not reported, since discordance with absolute values may lead to misinterpretation of CBC data. Current Interpretive Data was last revised on 2017. Eosinophil pct 13.0 % [facility] Comment: Interpretive Data Percent cell count reference ranges are not reported, since discordance with absolute values may lead to misinterpretation of CBC data. Current Interpretive Data was last revised on 2017. Basophil pct 0.6 % [facility] Comment: Interpretive Data Percent cell count reference ranges are not reported, since discordance with absolute values may lead to misinterpretation of CBC data. Current Interpretive Data was last revised on 2017. Blood 04/08/2025 10:4 7 PM CDT 04/08/2025 11:09 PM CDT Manjinder Tatum MD LAB BLOOD ORDERABLES Palma mohan Result [facility] [place] [address] * (ABNORMAL) CBC with auto differential (04/08/2025 10:47 PM CDT) WBC 6.71 3.80 - 9.90 K/cumm Hgb 11.5(L) 11.9 - 15.5 g/dL [facility] Hct 33.3(L) 35.6 - 45.5 % [facility] Plt 252 150 - 400 K/cumm [facility] MPV 9.6 9.1 - 12.3 fL [facility] RBC 3.60(L) 3.90 - 5.20 M/cumm [facility] MCV 92.5 81.3 - 96.4 fL [facility] MCH 31.9 27.1 - 33.3 pg [facility] MCHC 34.5 32.3 - 35.7 g/dL [facility] RDW CV 13.4 11.1 - 14.9 % [facility] RDW SD 45.7 35.7 - 48.1 fL [facility] NRBC abs 0.00 0.00 - 0.01 K/cumm [facility] Blood 04/08/2025 10:4 7 PM CDT 04/08/2025 11:09 PM CDT Manjinder Tatum MD LAB BLOOD ORDERABLES Palma l Result Performing Organization Address City/[facility]/ZIP Co de Phone Number [facility] [place] [address] * Phosphorus (04/08/2025 10:47 PM CDT) Pathologist [facility] Phosphorus, pl 3.6 2.3 - 4.5 mg/dL Blood 04/08/2025 10:4 7 PM CDT 04/08/2025 11:09 PM CDT Manjinder Tatum MD LAB BLOOD ORDERABLES Palma l Result [facility] [place] [address] * Magnesium (04/08/2025 10:47 PM CDT) Pathologist [facility] Magnesium 2.1 1.4 - 2.5 mg/dL Blood 04/08/2025 10:4 7 PM CDT 04/08/2025 11:09 PM CDT us Manjinder Tatum MD LAB BLOOD ORDERABLES Palma mohan Result [facility] Department [place] [address] * (ABNORMAL) Comprehensive metabolic panel (04/08/2025 10:47 PM CDT) Sodium 137 135 - 145 mmol/L Potassium, pl 3.9 3.3 - 4.9 mmol/L [facility] Chloride 105 97 - 110 mmol/L [facility] CO2 23 22 - 32 mmol/L [facility] Anion gap 9 2 - 15 mmol/L [facility] BUN 28(H) 6 - 25 mg/dL [facility] Creatinine 2.07(H) 0.60 - 1.10 mg/dL [facility] Glucose 98 70 - 199 mg/dL [facility] Comment: Interpretive Data Fasting glucose >/= [...] interpretive data was last revised 2022. Calcium 10.1 8.5 - 10.3 mg/dL [facility] Bilirubin, total 0.4 0.1 - 1.2 mg/dL [facility] Protein, pl 7.0 6.5 - 8.5 g/dL [facility] Albumin 3.8 3.5 - 5.0 g/dL [facility] Alk phos 65 40 - 130 Units/L [facility] ALT 10 7 - 45 Units/L [facility] AST 18 10 - 45 Units/L [facility] Blood 04/08/2025 10:4 7 PM CDT 04/08/2025 11:09 PM CDT us Manjinder Tatum MD LAB BLOOD ORDERABLES Palma l Result Performing Organization Address City/[facility]/ZIP Co de Phone Number [facility] [place] [address] * Hemoglobin and hematocrit (04/08/2025 4:34 PM CDT) Hgb 11.9 11.9 - 15.5 g/dL Hct 35.8 35.6 - 45.5 % [facility] Blood 04/08/2025 4:34 PM CDT 04/08/2025 4:57 PM CDT Manjinder Tatum MD LAB BLOOD ORDERABLES Palma l Result Performing Organization Address [facility] Co de Phone Number [facility] [place] [address] * US Guided Biopsy Renal (04/08/2025 1:07 PM CDT) Anatomical Region Laterality Modality Kidney N/A Computed Tomogra phy 04/08/2025 2:49 PM CDT Impressions 04/08/2025 3:56 PM CDT 1. Successful ultrasound-guided core needle biopsy of left rosebud renal cortex. Small postbiopsy perinephric and abdominal wall hematomas initially with active bleeding in the abdominal wall, which resolved with manual pressure. The patient was instructed to stay in the LLD position to keep pressure on this side. Findings were communicated to the admitting team with instructions to repeat CT scan if there is progressive pain or significant hemoglobin drop. 2. Please see separate Surgical Pathology results for final interpretation. Electronically signed by: Rajesh Bush M.D. Narrative 04/08/2025 3:56 PM CDT EXAMINATION: ULTRASOUND-GUIDED RENAL CORE BIOPSY HISTORY: History of hypertension and chronic kidney disease secondary to hypertension and chronic NSAID use. Long-standing proteinuria. Progressively worsening proteinuria. Morongo renal biopsy needed for tissue. COMPARISON: Sonogram 11/30/2024 FINDINGS: The rosebud left kidney is seen and demonstrates increased cortical echogenicity as well as multiple small renal cysts. No left hydronephrosis. TECHNIQUE: The procedure for ultrasound-guided core renal biopsy was explained to and discussed with the patient. Risks were explained to include, but not be limited to, hemorrhage, infection, injury to adjacent organs, non-diagnostic specimen and adverse reaction to medications administered. The patient voiced understanding and wished to proceed and signed the consent form. PROCEDURAL SEDATION: Procedural sedation was administered under the attending physician's direction and continuous monitoring by a trained nurse specialist who was independent from those actually performing the procedure. Total monitored sedation time was 38 minutes. CORE BIOPSY: A safe tract through the rosebud left kidney was identified for biopsy. An appropriate site was localized for core biopsy. The patient's overlying skin was prepped and draped in the usual sterile fashion. Local anesthesia was achieved via subcutaneous and deep administration with 10 mL of Lidocaine 1%. Under realtime ultrasound guidance, 1 pass was made with an 18 gauge BioPince core biopsy needle, 2.3 cm throw, with the use of a 17 gauge introducer needle. After confirming an adequate length of cortical tissue had been obtained, the specimen was placed in a sterile specimen cup and transferred immediately to the lab by risk assessment analyst for further processing. The biopsy tract was embolized with Gelfoam pledgets. A postbiopsy CT was performed demonstrating a small perinephric hematoma. A multiphasic CT was performed demonstrating a blush of contrast within a small abdominal wall hematoma likely from a tiny intramuscular abdominal wall branch vessel. Pressure was held for 10 minutes with no enlargement in size of the hematoma and an additional postbiopsy CT was performed demonstrating stability. The patient was instructed to stay in the LLD position to keep pressure on this side. Findings were communicated to the admitting team with instructions to repeat CT scan if there is progressive pain or significant hemoglobin drop. The patient's skin was cleaned and dressed. The patient tolerated the entire procedure well without immediate complications. Dr. Rajesh Bush M.D., the attending radiologist, was present from the beginning to the end of the procedure. Dr. Rajesh Bush M.D. performed the biopsy, assisted by Dr. Carmen Yousif. Procedure Note Rajesh Bush MD - 04/08/2025 EXAMINATION: ULTRASOUND-GUIDED RENAL CORE BIOPSY HISTORY: History of hypertension and chronic kidney disease secondary to hypertension and chronic NSAID use. Long-standing proteinuria. Progressively worsening proteinuria. Morongo renal biopsy needed for tissue. COMPARISON: Sonogram 11/30/2024 FINDINGS: The rosebud left kidney is seen and demonstrates increased cortical echogenicity as well as multiple small renal cysts. No left hydronephrosis. TECHNIQUE: The procedure for ultrasound-guided core renal biopsy was explained to and discussed with the patient. Risks were explained to include, but not be limited to, hemorrhage, infection, injury to adjacent organs, non-diagnostic specimen and adverse reaction to medications administered. The patient voiced understanding and wished to proceed and signed the consent form. PROCEDURAL SEDATION: Procedural sedation was administered under the attending physician's direction and continuous monitoring by a trained nurse specialist who was independent from those actually performing the procedure. Total monitored sedation time was 38 minutes. CORE BIOPSY: A safe tract through the rosebud left kidney was identified for biopsy. An appropriate site was localized for core biopsy. The patient's overlying skin was prepped and draped in the usual sterile fashion. Local anesthesia was achieved via subcutaneous and deep administration with 10 mL of Lidocaine 1%. Under realtime ultrasound guidance, 1 pass was made with an 18 gauge BioPince core biopsy needle, 2.3 cm throw, with the use of a 17 gauge introducer needle. After confirming an adequate length of cortical tissue had been obtained, the specimen was placed in a sterile specimen cup and transferred immediately to the lab by risk assessment analyst for further processing. The biopsy tract was embolized with Gelfoam pledgets. A postbiopsy CT was performed demonstrating a small perinephric hematoma. A multiphasic CT was performed demonstrating a blush of contrast within a small abdominal wall hematoma likely from a tiny intramuscular abdominal wall branch vessel. Pressure was held for 10 minutes with no enlargement in size of the hematoma and an additional postbiopsy CT was performed demonstrating stability. The patient was instructed to stay in the LLD position to keep pressure on this side. Findings were communicated to the admitting team with instructions to repeat CT scan if there is progressive pain or significant hemoglobin drop. The patient's skin was cleaned and dressed. The patient tolerated the entire procedure well without immediate complications. Dr. Rajesh Bush M.D., the attending radiologist, was present from the beginning to the end of the procedure. Dr. Rajesh Bush M.D. performed the biopsy, assisted by Dr. Carmen Yousif. IMPRESSION: 1. Successful ultrasound-guided core needle biopsy of left rosebud renal cortex. Small postbiopsy perinephric and abdominal wall hematomas initially with active bleeding in the abdominal wall, which resolved with manual pressure. The patient was instructed to stay in the LLD position to keep pressure on this side. Findings were communicated to the admitting team with instructions to repeat CT scan if there is progressive pain or significant hemoglobin drop. 2. Please see separate Surgical Pathology results for final interpretation. Electronically signed by: Rajesh Bush M.D. Tim Malik MD [facility] PROCEDURES F inal Result * Surgical pathology (04/08/2025 12:49 PM CDT) Tissue (Kidney Biopsy, Medical) 04/08/2025 12:49 PM CDT Narrative PATHOLOGY [facility] - 04/09/2025 4:45 PM CDT EPIC results best viewed via link to PDF [facility] [place] [address] Note to Patients: This report may contain a detailed description of human tissue sent by a health care provider to the laboratory for pathologic evaluation. The content of this report is essential for diagnosis and may provide important critical findings. This information may be unfamiliar to patients to review without a medical professional present. It is advised that the patient review this report in the presence of a health care provider who can answer questions and explain the details. SURGICAL PATHOLOGY REPORT FINAL Patient Name: MEGHANA BARAJAS Gender: F : 1960 (Age: 64) Address: [address] [place] [id number] Hospital #: [id number] Taken:04/08/2025 Received:04/08/2025 Reported: 04/09/2025 Patient Type: [facility] OP In Bed Service: Medical Location: [place] [address] Physician(s): Rajesh Bush M.D. Paulo Mujica M.D. 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 Rand Oakley M.D. Report Electronically Reviewed and Signed Out By Rand Oakley M.D. 04/09/2025 16:45:30 Diagnosis Comment The presence of glomerulomegaly and FSGS lesions is usually associated with hyperfiltration conditions, including obesity-related glomerulopathy, which may be present in this patient. FSGS etiologies include primary, secondary and genetic causes, and those should be considered in the differential diagnosis. Reference: Josef N, Alon Y, et al. Low Glomerular Density with Glomerulomegaly and Obesity-Related Glomerulopathy. Clin J Am Soc Nephrol. 2011; 7(5):735-41. Preliminary results reprted to Dr. Tim Malik on 04/09/2025. Microscopic Description and Comment: Light Microscopy Tissue for light microscopy is evaluated using 8 slides at 2 levels of section with H&E, PAS, Batsheva's trichrome, and Snowden' silver stains. Two cores of renal tissue are present consisting entirely of cortex. Up to seven glomeruli are available for evaluation, none globally sclerotic. The non-sclerotic glomeruli appear enlarged and show focal mesangial expansion. Areas of segmental sclerosis are present in two glomeruli. There is no endocapillary hypercellularity or crescent formation in the non-sclerotic glomeruli. The cortical tubulointerstitial tissue has moderate interstitial fibrosis and tubular atrophy affecting approximately 30% of the cortex. There is a mild lymphocytic inflammatory infiltrate that predominantly involves the areas of chronicity. The tubules show focal tubular injury with epithelial vacuolization, tubular dilation, and epithelial simplification with thyroidization of the cortex. Small arteries and arterioles show no significant intimal fibrosis or hyalin arteriolosclerosis. Immunofluorescence Microscopy Frozen sections of tissue submitted for immunofluorescence microscopy are stained with H&E and evaluated by light microscopy. Five glomeruli are present for evaluation, two globally sclerotic. Direct immunofluorescence microscopy is performed on frozen sections, with appropriate controls, stained with fluoresceinated antisera to IgG, IgA, IgM, C1q, C3, albumin, fibrin, and kappa and lambda light chains to evaluate for immune mediated kidney disease. On a scale of 0-3+, the glomeruli show no staining. There is positive staining of arterioles with C3 and tubular casts with IgA. Tubular casts and protein resorption droplets stain positive for kappa and lambda of equal intensity. The remaining stains are negative. Section quality is satisfactory and positive and negative controls stain appropriately. Electron Microscopy Plastic sections of the tissue submitted for electron microscopy were stained with Toluidine blue and evaluated by light microscopy. One non-sclerotic glomerulus is present. The tubulointerstitial and vascular compartments show similar findings as the light microscopic sample. The glomerulus evaluated by electron microscopy has no immune type electron dense deposits. The glomerular basement membranes are wrinkled and within normal thickeness. There is severe effacement and detachment of podocyte foot processes. The tubular basement membranes are without deposits. Evgeny Porras D.O. History: The patient is a 64-year-old woman presenting with logn standing proteinruia and stage 4 chronic kidney disease. BMI is 50. Operative procedure: Morongo kidney biopsy. Specimen(s) Received: A: Left rosebud kidney core B: Left rosebud kidney core C: Tissue for EM Gross Description: Received in three jars labeled with the patient's identifiers. A. Received in formalin, labeled left rosebud kidney and consists of a single core(s) of cardoso pink soft tissue (1.4 cm in length by 0.1 cm in diameter). Wrapped. Labeled A1. Jar 0. B. Received in Maurizio's, labeled left rosebud kidney and consists of a single core(s) of cardoso pink soft tissue (0.4 cm in length by 0.1 cm in diameter). Specimen is entirely submitted for Immunofluorescence . C. Received in Karnovsky's, labeled left rosebud kidney and consists of a single core(s) of cardoso pink soft tissue (0.5 cm in length by 0.1 cm in diameter). Specimen is entirely submitted for Electron Microscopy. sxst04/08/2025 13:58 PA(s): Ksenia Rincon By this signature, I attest that the above diagnosis is based upon my personal examination of the slides(and/or other material). Addenda/Procedures The performance characteristics of some immunohistochemical stains, fluorescence in-situ hybridization tests and immunophenotyping by flow cytometry cited in this report (if any) were determined by the Surgical Pathology and Flow Cytometry Departments at [facility] as part of an ongoing air quality engineer program and in compliance with federally mandated regulations drawn from the Clinical Laboratory Improvement Act of 1988 (CLIA '88). Some of these tests rely on the use of analyte specific reagents and are subject to specific labeling requirements by the US Food and Drug Administration. Such diagnostic tests may only be performed in a facility that is certified by the Department of Health and Human Services as a high complexity laboratory under CLIA '88. The FDA has determined that such clearance or approval is not necessary. This test is used for clinical purposes. It should not be regarded as investigational or for research. Nevertheless, federal rules concerning the medical use of analyte specific reagents require that the following disclaimer be attached to the report: This test was developed and its performance characteristics determined by the Surgical Pathology and Flow Cytometry Departments of [facility]. It has not been cleared or approved by the U. S. Food and Drug Administration. IMAGES AND SCANNED DOCUMENTS, IF INCLUDED, ONLY VIEWABLE IN PDF VERSION OF REPORT Tim Malik MD LAB PATHOLOGY ORDER YESSI Final Result PATHOLOGY [facility] 3rd Floor [place], [place] [phone] * Protime-INR (04/08/2025 10:11 AM CDT) PT 11.4 10.2 - 13.5 sec INR 1.01 0.90 - 1.20 [facility] Comment: Interpretive data Oral anticoagulant therapeutic ranges: Venous thromboembolism prophylaxis or treatment: 2.0-3.0 CARDIOLOGY Standard range: 2.0-3.0 High-intensity range: 2.5-3.5 Refer to indication-specific guidelines for appropriate target ranges for prosthetic heart valve replacement. Current interpretive data was last revised on 2019. Blood 04/08/2025 10:1 1 AM CDT 04/08/2025 10:38 AM CDT Tim Malik MD LAB BLOOD ORDERABLE S Final Result Performing Organization Address [facility] Co de Phone Number [facility] [place] [address] * Type and screen (04/08/2025 10:11 AM CDT) Yamilex, indirect Negative ABO Rh AB Positive [facility] Blood 04/08/2025 10:1 1 AM CDT 04/08/2025 10:53 AM CDT Narrative [facility] - 04/08/2025 11:55 AM CDT Has the patient had Daratumumab or Isatuximab in the past 6 months?->Unknown us Tim Malik MD LAB BLOOD BANK TEST ORDERABLES Final Result Performing Organization Address [facility] [place] [address] * Hepatitis C antibody Blood (09/14/2024 12:38 PM SCREEN MAKING SUPERVISOR) Pathologist [facility] Hep C Ab Nonreactive Nonreactive Comment:Antibodies to HCV no t detected. Does NOT exclude the possibility of recent exposure to HCV. Current interpretive data was last revised on 22 Blood 09/14/2024 12:3 8 PM SCREEN MAKING SUPERVISOR 09/14/2024 1:01 PM SCREEN MAKING SUPERVISOR us Sirisha Bernard MD LAB MICROBIOLOGY - GENER AL ORDERABLES Final Result Performing Organization Address [facility] Co de Phone Number [facility] [place] [address] from Last 3 Months or Most Recently Relevant to Health Maintenance Insurance [place] [employer] [facility] [place] MEDIC[facility] MEDICARE SUPPLEMENT Advance Directives For more information, please contact: [phone] Documents on File Type Date Recorded Patient Hat Copyist Expl anation ADVANCE DIRECTIVE 07/28/2024 11:21 AM Ann r of Food Editor-Medical * Full Code (Latest Code Status on File) Date Activated Date Inactivated Comments 04/08/2025 11:23 AM 04/09/2025 3:16 PM * Full Code Date Activated Date Inactivated Comments 07/28/2024 11:15 PM 07/29/2024 5:28 PM * Full Code Date Activated Date Inactivated Comments 11/19/2022 12:21 PM 11/23/2022 9:33 PM Care Teams Saw Straightener Relationship Specialty Start Date End Date Paulo Mujica MD [address] [place] [address] PCP - General 08/24/11
--- OUTSIDE RECORDS SUMMARY | 2025-07-06 07:48 | XMS_ITS | Clinical Summary ---
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 Gender Identity Not on file Sexual Orientation Not on file Plan of Treatment Health Maintenance Due Date Last Done Comments Colorectal Cancer Screening Colonoscopy (10 Years) 1960 Hepatitis C 1978 DTaP, Tdap and Td Vaccines ( 1 - Tdap) 1979 Mammogram Screening 2000 Pneumococcal Vaccine: 50+ Ye ars (1 of 1 - PCV) 2010 Zoster Vaccines (1 of 2) 2010 COVID-19 Vaccine ( - 2024-2 6 season) 2025 Influenza Adult (#1) 2025 Dexa Scan (General) 2025 RSV Immunization or 60+ Years (1 - 1-dose 75+ series) 2035 Hepatitis A Vaccines Aged Out No long er eligible based on patient's age to complete this topic Meningococcal B Vaccine Aged Out No l onger eligible based on patient's age to complete this topic Meningococcal Vaccine Aged Out No pritesh juan eligible based on patient's age to complete this topic RSV Immunizations Under 20 Months Aged Out No longer eligible based on patient's age to complete this topic Insurance [facility] Care Teams Primer Powder Blender Wet Relationship Specialty Start Date End Date Paulo Mujica MD [address] [place] [id number] PCP - General FAMILY PRACTICE 12/24/19
--- OUTSIDE RECORDS SUMMARY | 2025-07-06 07:48 | XMS_ITS | Encounter Summary ---
Author Organization [facility] Healthcare Address [address] [place] [address] Care Team Providers Care It Infrastructure Architect Name Role Phone Paulo Mujica MD Primary Care Provider [phone] Encounter Details Date Type Department Care Team (Late st Contact Info) Description 04/08/[address] 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 Gender Identity Female 11/02/2022 12:36 PM CDT Sexual Orientation Straight 11/02/2022 12 :36 PM CDT Occupation Industry Job Start Date Job End Date Retired Not on file Not on file Not on file documented as of this encounter Plan of Treatment Not on file documented as of this encounter Visit Diagnoses Not on filedocumented in this encounter Orders Medications Ordered That Marvin ht Not Have Been Administered Count Last Ordered Date First Ordered Date fentaNYL (SUBLIMAZE) 100 mcg /2 mL (50 mcg/mL) preservative free syringe - ADS Override Pull 1 04/08/2025 midazolam (VERSED) 1 mg/mL p reservative free injection - ADS Override Pull 1 04/08/2025 sodium chloride 0.9% 0.9% in fusion - ADS Override Pull 1 04/08/2025 documented in this encounter Care Teams It Infrastructure Architect Relationship Specialty Start Date End Date Paulo Mujica MD [address] [place] [id number] PCP - General 08/24/11 documented as of this encounter
--- OUTSIDE RECORDS SUMMARY | 2025-07-06 07:48 | XMS_ITS | Encounter Summary ---
Author Organization [facility] Address [address] [place] [address] Phone Care Team Providers Care Nursing Assistant Name Role Phone Paulo Mujica MD Primary Care Provider [phone] Reason for Visit * Reason Onset Date Comments drug interaction 06/28/2025 Encounter Details Date Type Department Care Team (Late st Contact Info) Description 06/28/2025 Telephone [facility] Nephrology [address] [facility] 5th [place] [address] [place] [address] Tim Gtz MD [address] [place], [place] [id number] drug interaction Social History Tobacco Use Types Packs/Day Years [...] on file Legal 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 Radhames Veloz IRATORY THERAPY DIRECTOR * Telephone Encounter - Ny Maldonado - 07/05/2025 8:32 AM CST Pt called back stated that she has been trying to take the spironolactone (ALDACTONE) 25 mg tablet using her pill cutter and taking half as she was instructed, but pill is very tiny and crumbles. Pt is asking if she can take this medication every other day instead ? Please review and advise and call pt when able Radhames VELOZ IRATORY THERAPY DIRECTOR * Telephone Encounter - Chayito Melton - 06/28/2025 4:17 PM CST Clemente with [facility] called about drug interaction. Spironolactone was sent in today and pt is on lisinopril which the two combined could cause elevated Potassium levels. Please advise when able. [facility] CB# [phone]. Radhames-Niki IRATORY THERAPY DIRECTOR documented in this encounter Plan of Treatment Not on file documented as of this encounter Visit Diagnoses Not on filedocumented in this encounter Care Teams Nursing Assistant Relationship Specialty Start Date End Date Paulo Mujica MD [address] [place] [id number] PCP - General 08/24/11 documented as of this encounter
--- OUTSIDE RECORDS SUMMARY | 2025-07-06 07:48 | XMS_ITS | Data Portability ---
Author Organization [place] [facility] [place], Main Office Address [address] [place] [address] Care Team Providers Care Box Spring Frame Builder Name Role Phone KAYLIN YOUNG Primary Care Provider KAYLIN YOUNG Referring Provider [phone] Assessment Encounter Date Assessment Date Assessment LastModified [...] XR, shoulder 2022 023 [email or web address] [facility] [place], [address], [place], [address], 3 23:05:12 XR, shoulder, 2 or more view 2022 023 [email or web address] [facility] [place], [address], [address], 3 15:03:47 XR, shoulder 2022 023 [email or web address] [facility] [place], [address], [address], 3 17:04:30 Medication Orders None recorded. Patient TargetsNo targets recorded. Patient InstructionsNo instructions recorded. Reason for Referral None Reported. Results Created Date Observation Date Name Description Value Unit Range Abnormal Flag Note LastModifiedBy Organization Detail LastModifiedTime 06/26/2006/26/2022 TYPE AND SCREE N patient ABO group and Rh Ab positi ve Not Available [facility] (Lab) [address] [place], [address], 06/26/2022 14:24:47 06/26/20 22 06/26/2022 TYPE AND SCREE N patient antibody screen negati ve Not Available [facility] (Lab) [address] [place], [address], 06/26/2022 14:24:47 06/26/20 22 06/26/2022 MRSA/ STAPH AUREU S, NASAL , PCR MRSA, nasal negati ve Not Available [facility] (Lab) [address] [place], [address], 06/26/2022 13:52:17 06/26/20 22 06/26/2022 MRSA/ STAPH AUREU S, NASAL , PCR staph aureus, nasal negati ve Not Available [facility] (Lab) [address] [place], [address], 06/26/2022 13:52:17 06/26/20 22 06/26/2022 SARS- COV-2 [...] clini fernando evalu ating the patie nt. Latrice rodriguez w the Fact Sheet s for healt h care provi ders and patie nts at the [facility] liane: https ://ww Bankfeeinsider.com.fda .gov/ media /1363 12/do wnloa d https ://ww w.fda .gov/ media /1363 13/do wnloa d https ://CodeEval.fda .gov/ media /1421 92/do wnloa d https ://Táximo w.fda .gov/ media /1421 91/do wnloa d Metho dolog y: Real- Time RT-PC R Not Available [facility] (Lab) [address] [place], [address], 06/26/2022 13:27:00 06/26/20 22 06/26/2022 BASIC METAB OLIC PANEL sodium 138 mmol/ L 137-14 5 Not Available [facility] (Lab) [address] [place], [address], 06/26/2022 13:20:35 06/26/20 22 06/26/2022 BASIC METAB OLIC PANEL potassium 4.4 mmol/ L 3.5-5. 1 Not Available [facility] (Lab) [address] [place], [address], 06/26/2022 13:20:35 06/26/20 22 06/26/2022 BASIC METAB OLIC PANEL chloride 103 mmol/ L 98-107 Not Available [facility] (Lab) [address] [place], [address], 06/26/2022 13:20:35 06/26/20 22 06/26/2022 BASIC METAB OLIC PANEL carbon dioxide 24 mmol/ L 22-30 Not Available [facility] (Lab) [address] [place], [address], 06/26/2022 13:20:35 06/26/20 22 06/26/2022 BASIC METAB OLIC PANEL anion gap 15.4 mmol/ L 14-22 Not Available [facility] (Lab) [address] [place], [address], 06/26/2022 13:20:35 06/26/20 22 06/26/2022 BASIC METAB OLIC PANEL glucose 92 mg/dL 70-99 Not Available [facility] (Lab) [address] [place], [address], 06/26/2022 13:20:35 06/26/20 22 06/26/2022 BASIC METAB OLIC PANEL BUN 28 mg/dL 8-19 high Not Available [facility] (Lab) [address] [place], [address], 06/26/2022 13:20:35 06/26/20 22 06/26/2022 BASIC METAB OLIC PANEL creatinine 1.38 mg/dL 0.66-1 .25 high Not Available [facility] (Lab) [address] [place], [address], 06/26/2022 13:20:35 06/26/20 22 06/26/2022 BASIC METAB OLIC PANEL GFR 39 Refer ence Range : [place] ge GFR Healt hy Adult : >60 [...] calcu lator is avail able on the [facility] websi te: https ://mirtha noel.janessa duvall.o rg/pr ofess ional s/kdo qi/gf r_cal culat or Not Available [facility] (Lab) [address] [place], [address], 06/26/2022 13:20:35 06/26/20 22 06/26/2022 BASIC METAB OLIC PANEL calcium 10.4 mg/dL 8.4-10 .2 high Not Available [facility] (Lab) [address] [place], [address], 06/26/2022 13:20:35 06/26/20 22 06/26/2022 CBC/C OMPLE TE BLD COUNT W/DIF F white blood cells 5.5 x10'3 /uL 4.2-10 .8 Not Available [facility] (Lab) [address] [place], [address], 06/26/2022 13:08:45 06/26/20 22 06/26/2022 CBC/C OMPLE TE BLD COUNT W/DIF F red blood cells 3.99 x10'6 /uL 3.80-5 .20 Not Available [facility] (Lab) [address] [place], [address], 06/26/2022 13:08:45 06/26/20 22 06/26/2022 CBC/C OMPLE TE BLD COUNT W/DIF F hemoglobin 12.4 g/dL 12.0-1 5.6 Not Available [facility] (Lab) [address] [place], [address], 06/26/2022 13:08:45 06/26/20 22 06/26/2022 CBC/C OMPLE TE BLD COUNT W/DIF F hematocrit 38.0 % 35.7-4 5.7 Not Available [facility] (Lab) [address] [place], [address], 06/26/2022 13:08:45 06/26/20 22 06/26/2022 CBC/C OMPLE TE BLD COUNT W/DIF F mean red cell volume 95.2 fL 82.0-9 9.0 Not Available [facility] (Lab) [address] [place], [address], 06/26/2022 13:08:45 06/26/20 22 06/26/2022 CBC/C OMPLE TE BLD COUNT W/DIF F mean red cell hemoglobin 31.1 pg 27.0-3 3.0 Not Available [facility] (Lab) [address] [place], [address], 06/26/2022 13:08:45 06/26/20 22 06/26/2022 CBC/C OMPLE TE BLD COUNT W/DIF F mean RBC HGB concentratio n 32.6 g/dL 31.0-3 6.0 Not Available [facility] (Lab) [address] [place], [address], 06/26/2022 13:08:45 06/26/20 22 06/26/2022 CBC/C OMPLE TE BLD COUNT W/DIF F red cell distribution width 13.2 % 11.8-1 5.5 Not Available [facility] (Lab) [address] [place], [address], 06/26/2022 13:08:45 06/26/20 22 06/26/2022 CBC/C OMPLE TE BLD COUNT W/DIF F platelets 239 x10'3 /uL 150-40 0 Not Available [facility] (Lab) [address] [place], [address], 06/26/2022 13:08:45 06/26/20 22 06/26/2022 CBC/C OMPLE TE BLD COUNT W/DIF F mean platelet volume 9.4 fL 9.0-12 .4 Not Available [facility] (Lab) [address] [place], [address], 06/26/2022 13:08:45 06/26/20 22 06/26/2022 CBC/C OMPLE TE BLD COUNT W/DIF F neutrophils 61.0 % 39.0-7 2.0 Not Available [facility] (Lab) [address] [place], [address], 06/26/2022 13:08:45 06/26/20 22 06/26/2022 CBC/C OMPLE TE BLD COUNT W/DIF F lymphocytes 27.2 % 16.0-4 7.0 Not Available [facility] (Lab) [address] [place], [address], 06/26/2022 13:08:45 06/26/20 22 06/26/2022 CBC/C OMPLE TE BLD COUNT W/DIF F monocytes 8.5 % 5.0-12 .0 Not Available [facility] (Lab) [address] [place], [address], 06/26/2022 13:08:45 06/26/20 22 06/26/2022 CBC/C OMPLE TE BLD COUNT W/DIF F eosinophils 2.4 % 1.0-7. 0 Not Available [facility] (Lab) [address] [place], [address], 06/26/2022 13:08:45 06/26/20 22 06/26/2022 CBC/C OMPLE TE BLD COUNT W/DIF F basophils 0.7 % 0.0-2. 0 Not Available [facility] (Lab) [address] [place], [address], 06/26/2022 13:08:45 06/26/20 22 06/26/2022 CBC/C OMPLE TE BLD COUNT W/DIF F immature granulocytes 0.2 % 0.00-0 .50 Not Available [facility] (Lab) [address] [place], [address], 06/26/2022 13:08:45 06/26/20 22 06/26/2022 CBC/C OMPLE TE BLD COUNT W/DIF F neutrophils, absolute count 3.36 x10'3 /uL 1.5-8. 0 Not Available [facility] (Lab) [address] [place], [address], 06/26/2022 13:08:45 06/26/20 22 06/26/2022 CBC/C OMPLE TE BLD COUNT W/DIF F lymphocytes, absolute count 1.50 x10'3 /uL 1.07-3 .43 Not Available [facility] (Lab) [address] [place], [address], 06/26/2022 13:08:45 06/26/20 22 06/26/2022 CBC/C OMPLE TE BLD COUNT W/DIF F monocytes, absolute count 0.47 x10'3 /uL 0.29-0 .99 Not Available [facility] (Lab) [address] [place], [address], 06/26/2022 13:08:45 06/26/20 22 06/26/2022 CBC/C OMPLE TE BLD COUNT W/DIF F eosinophils, absolute count 0.13 x10'3 /uL 0.02-0 .53 Not Available [facility] (Lab) [address] [place], [address], 06/26/2022 13:08:45 06/26/20 22 06/26/2022 CBC/C OMPLE TE BLD COUNT W/DIF F basophils, absolute count 0.04 x10'3 /uL 0.01-0 .08 Not Available [facility] (Lab) [address] [place], [address], 06/26/2022 13:08:45 06/26/20 22 06/26/2022 CBC/C OMPLE TE BLD COUNT W/DIF F immature granulocytes ,absolute 0.01 x10'3 /uL 0.00-0 .05 Not Available [facility] (Lab) [address] [place], [address], 06/26/2022 13:08:45 06/26/20 22 06/26/2022 CBC/C OMPLE TE BLD COUNT W/DIF F nucleated red blood cells 0.0 % -0 Not Available [facility] (Lab) [address] [place], [address], 06/26/2022 13:08:45 06/26/20 22 06/26/2022 CBC/C OMPLE TE BLD COUNT W/DIF F NRBC# 0.00 x10'3 /uL Not Available [facility] (Lab) [address] [place], [address], 06/26/2022 13:08:45 06/26/20 22 06/26/2022 XR, chest , 2 view [facility] [address] [place] [address] [phone] Patien t Name: MEGHANA GARDNER Access ion #: [id number] Sex: F : 1959 3 Locati [...] 2 view chest. Page 1 of [address] [facility] Name: MEGHANA GARDNER Access ion #: [id number] Sex: F : 1959 3 Exam Date: 2021 11:17 AM Exam Name: XR CHEST 2V Admitt ing Diagno sis(es ): Create d and electr onical ly signed by: Oscar rolon MD Signed Date: 2021 11:46 AM (CT) Dictat ed by: Oscar rolon MD DD: 2021 11:46 AM (CT) DT: 2021 11:46 AM (CT) Page 2 of 2 [id number] [facility] (Imaging) [address] [place], [address], 09/13/2022 01:27:23 07/17/19 23 XR, shoul verona, 2 or more view No observ ation record ed. [email or web address] [facility] [place] [address], [place], [address], 09/13/2022 01:27:23 08/14/19 23 XR, shoul verona, 2 or more view No observ ation record ed. [id number] [facility] [place] [address], [place], [address], 09/13/2022 01:27:23 09/26/19 23 XR, shoul vernoa No observ ation record ed. [email or web address] [facility] [place] [address], [address], 09/25/2022 17:04:30 12/26/19 23 XR, shoul verona, 2 or more view No observ ation record ed. [email or web address] [facility] [place] [address], [place], [address], 12/25/2022 15:03:46 06/12/20 23 XR, shoul verona No observ ation record ed. [email or web address] [facility] [place] [address], [place], [address], 06/12/2023 10:31:25 Result Notes None recorded. Problems Name Problem SNOMED Code Status Onset Date Resolution Date Notes Provider Name and Address Organization Details Recorded Time Pain of left shoulder joint 3002696606005 9109 Active 2021 Not Available [facility] 3 01:25:26 Pain of right shoulder joint 7871484295294 9100 Active 2021 Not Available [facility] 3 01:25:26 Osteoarthr itis 324391213 Active 2021 Not Available [facility] 3 01:25:26 Problem Notes None recorded. Procedures Surgical History Date Name Laterality Status Provider Name and Address Organization Details Recorded Time hernia repair completed Not Available [facility] 09/13/2022 01:24:19 Foot Surgery completed Not Available [facility] 09/13/2022 01:24:19 total knee replacement completed Not Available [facility] 09/13/2022 01:24:19 section completed Asmita ellis CNA [place] [facility] 06/12/2023 10:29:47 Imaging Results None recorded. Procedure Notes None recorded. Medical Equipment None [...] Updated DateTime 07/17/2022 43.4 kg/m2 160.02 cm 120618.13 g Not Available [facility] 09/13/2022 01:24:53 Date Recorded Body mass index (BMI) Body height Body weight Provider Name and Address Organization Details Last Updated DateTime 08/14/2022 25.7 kg/m2 160.02 cm 64513.89 g Not Available [facility] 09/13/2022 01:24:53 Date Recorded Body height Body mass index (BMI) Body weight Provider Name and Address Organization Details Last Updated DateTime 09/25/2022 157.48 cm 44.8 kg/m2 261537.13 g KAYLENE [place] [facility] 09/25/2022 15:45:02 Date Recorded Body height Body mass index (BMI) Body weight Provider Name and Address Organization Details Last Updated DateTime 12/25/2022 157.48 cm 43.5 kg/m2 614822.98 g LIANET Uriarte - [facility] [place] [facility] [facility] 12/25/2022 14:27:09 Date Recorded Body height Body mass index (BMI) Body weight Provider Name and Address Organization Details Last Updated DateTime 06/12/2023 160.02 cm 44.3 kg/m2 687709.09 mili RamachandranAMIRAH green Sosei [facility] 06/12/2023 10:26:55 Social History None recorded. Functional Status Question Answer Note LastModified by Organizat ion Details LastModified Time What is your level of alcohol consumption? Occasional [id number] Information not available 09/13/2022 Mental Status None recorded. Family History Relationship Description Onset Age of this Age Resolved Age Notes LastModified by Organization Details LastModified Time Mother Heart disease [id number] Not available 09/13/2022 01:24:21 Mother Hypertensive disorder [id number] Not available 09/13/2022 01:24:21 Father Hypertensive disorder [...] HAVE YOU BEEN HOSPITALIZED OR SEEN IN [facility] IN THE PAST YEAR ? N BURSITIS [...] Diagnosis SNOMED-CT Code Diagnosis ICD10 Code Diagnosis IMO Codes Diagnosis Note [id number] Hank Magana MD [facility] [place] [address] [facility] [address] [place] [address] 04/09/2022 00:00:00 04/09/2022 15:25:32 [id number] Owen Vergara MD [facility] [place] [address] [place] [address] 05/15/2022 00:00:00 05/15/2022 10:38:39 [id number] Owen Vergara MD [facility] [place] [address] [place] [address] 06/12/2022 00:00:00 06/12/2022 13:49:33 [id number] Owen Vergara MD [facility] [place] [address] [place] [address] 07/03/2022 00:00:00 07/03/2022 16:40:32 [id number] Owen Vergara MD [facility] [place] [address] [place] [address] 07/17/2022 00:00:00 07/17/2022 16:40:18 [id number] Owen Vergara MD [facility] [place] [address] [place] [address] 08/14/2022 00:00:00 08/14/2022 17:30:29 [id number] Owen Vergara MD [facility] [place] [address] [place] [address] 09/25/2022 15:42:51 09/25/2022 16:41:06 Pain of right shoulder joint 8701002368 2022691 M25.511 Osteoarthritis 393445491 M19.011 patient will continue with a home strengthen ing program I will see her in 3 months for AP axillary and Y lateral x-ray view we will then see her again 6 months later when she is about a year postop patient doing very well at this point [id number] Owen Vergara MD [facility] [place] [address] [place] [address] 12/25/2022 14:24:13 12/25/2022 15:02:00 Pain of right shoulder joint 0281385135 1041539 M25.511 patient is doing very well we can see her back in about 6 months for follow-up x-rays she can be activity as tolerated gotten back excellent internal and external rotation as well as forward elevation Osteoarthritis 369092577 M19.662 [id number] Good Machado MD [facility] [place] [address] [place] [address] 06/12/2023 10:08:53 06/12/2023 10:49:38 Pain of right shoulder joint 9115667985 0271384 M25.511 Health Concerns Section Related Observation LastModified by Organization Detai ls LastModified Time None Recorded Concern Status LastModified by Organization Details LastModified Time None Recorded Advance Directives Directive None Recorded Payers Insurance Date Sequence Insurance Name Policy Number Policy Campoverde Covered Member ID Campoverde Member ID Guarantor Name 06/17/2023 1 [place] [id number] Jose De Jesus Barajas [id number] Meghana Barajas Notes Date Note Type Note Provider Name and Address Organization Details Recorded Time 09/25/2022 text/html patient is 3 months postop from a right reverse total shoulder arthroplasty patient is doing very well no pain now her activity is improved significantly range of motion is improved Owen Vergara MD [address] [place] [address], [address], [facility] [employer] 09/25/2022 17:04:58 12/25/2022 text/html patient is 6 months postop from a right reverse total shoulder arthroplasty patient is doing very well no pain now her activity is improved significantly range of motion is improved Owen Vergara MD [address], [facility] [address], [place], [address], [place] [employer] [facility] 12/25/2022 15:04:14 OBGyn Episode No OBEpisode recorded.
--- OUTSIDE RECORDS SUMMARY | 2025-07-06 07:48 | XMS_ITS | Encounter Summary ---
Author Organization [facility] Address [address] [place] [address] Phone Care Team Providers Care Snaker Name Role Phone Paulo Mujica MD Primary Care Provider [phone] Encounter Details Date Type Department Care Team (Late st Contact Info) Description 09/18/2024 Documentation [facility] Medicine Nephrology [address] [facility] [address] [place] [address] [place] [id number] Sirisha Bernard MD [address] [facility] [address] [place] [id number] Social History Tobacco Use Types Packs/Day Years [...] on file 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
--- OUTSIDE RECORDS SUMMARY | 2025-07-06 07:48 | XMS_ITS | Encounter Summary ---
Author Organization [facility] Address [facility] [place] [address] Care Team Providers Care Casework Manager Name Role Phone Paulo Mujica MD Primary Care Provider [phone] Encounter Details Date Type Department Care Team (Late st Contact Info) Description 12/20/2018 Abstract [facility] CONVERSION [address] [place] [address] , Generic Conversion, Social History Tobacco Use Types Packs/Day Years Used Date Smoking Tobacco: Never Assessed Comments Unknown Sex and Gender Information Value Date Recorded Sex Assigned at Not on file 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
== END 2025-07-06 07:40 | disposition home or self-care (01) ==
LOC: ANHFOHIMG 07:44
PROVIDERS: PCP Family Medicine; Visit Provider Family Medicine
DX: Z12.31 Encounter for screening mammogram for malignant neoplasm of breast (principal)
CPT/HCPCS: 77063; 77067